=== PATIENT | female | born 1945 | race Caucasian/White ===

== ENCOUNTER → 2016-09-09 | Outpatient (CLI) | payer OTHER ==
[~2016-09-09] MED LIST: FRCT/ PO; METH-848 PO; METO25TA3 PO; PRLSR20 PO; TPZ5 PO
--- NOTE | 2016-09-09 10:50 | DIAGNOSTIC IMAGING REPORT ---
THYROID ULTRASOUND CLINICAL HISTORY: TOXIC MULTINODULAR GOITER COMPARISON STUDY: Carotid ultrasound July 30, 2005 and thyroid ultrasound August 23, 2015. TECHNIQUE: Sonography of the thyroid gland was performed. FINDINGS: The right thyroid lobe measures 4.8 x 2.2 x 2 cm and the left lobe measures 4.1 x 1.8 x 1.8 cm. There are numerous predominantly cystic and solid nodules with tiny echogenic foci with comet tail artifact throughout the thyroid gland. These are similar to prior exam of August 23, 2015. The largest is a 1.5 x 1.2 x 1.4 cm right lobe nodule. IMPRESSION: No significant change in numerous cystic thyroid lesions since exam of August 23, 2015. 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 Electronically signed by: Gianluca Gonzales M.D. 09/09/2016 10:49 AM Dictated Date/Time: 09/09/2016 10:45 AM
[2016-09-09 13:54] LABS: THYROID STIMULATING HORMONE 0.951 uIu/ml (0.300-4.500)
== END | disposition home or self-care (01) ==
LOC: C.ULTRBC 09:26
PROVIDERS: ATTEND Physician Assistant
DX: E05.20 Thyrotoxicosis with toxic multinodular goiter without thyrotoxic crisis or storm (principal)

== ENCOUNTER → 2016-10-16 | Outpatient (CLI) | payer OTHER ==
[2016-10-16 17:37] LABS: THYROID STIMULATING HORMONE 0.927 uIu/ml (0.300-4.500)
== END | disposition home or self-care (01) ==
LOC: C.LABBC 14:19
PROVIDERS: ATTEND Physician Assistant
DX: E05.90 Thyrotoxicosis, unspecified without thyrotoxic crisis or storm (principal)

== ENCOUNTER → 2016-11-15 | Outpatient (CLI) | payer OTHER ==
[2016-11-15 17:14] LABS: THYROID STIMULATING HORMONE 1.09 uIu/ml (0.300-4.500)
== END | disposition home or self-care (01) ==
LOC: C.LABBC 12:48
PROVIDERS: ATTEND Physician Assistant
DX: E05.90 Thyrotoxicosis, unspecified without thyrotoxic crisis or storm (principal)

== ENCOUNTER → 2016-12-11 | Outpatient (CLI) | payer OTHER ==
[2016-12-11 17:50] LABS: THYROID STIMULATING HORMONE 1.08 uIu/ml (0.300-4.500)
== END | disposition home or self-care (01) ==
LOC: C.LABBC 12:37
PROVIDERS: ATTEND Physician Assistant
DX: E05.90 Thyrotoxicosis, unspecified without thyrotoxic crisis or storm (principal)

== ENCOUNTER → 2017-01-15 | Outpatient (CLI) | payer OTHER ==
[2017-01-15 14:46] LABS: THYROID STIMULATING HORMONE 1.68 uIu/ml (0.300-4.500)
== END | disposition home or self-care (01) ==
LOC: C.LABBC 11:36
PROVIDERS: ATTEND Physician Assistant
DX: E05.90 Thyrotoxicosis, unspecified without thyrotoxic crisis or storm (principal)

== ENCOUNTER → 2017-04-08 | Outpatient (CLI) | payer OTHER ==
[2017-04-08 17:27] LABS: THYROID STIMULATING HORMONE 2.08 uIu/ml (0.300-4.500)
== END | disposition home or self-care (01) ==
LOC: C.LABBC 12:09
PROVIDERS: ATTEND Physician Assistant
DX: E05.90 Thyrotoxicosis, unspecified without thyrotoxic crisis or storm (principal)

== ENCOUNTER → 2017-05-16 | Outpatient (CLI) | payer OTHER | END | disposition home or self-care (01) | LOC: C.LABBC 14:25 | PROVIDERS: ATTEND Physician Assistant | DX: E05.90 Thyrotoxicosis, unspecified without thyrotoxic crisis or storm (principal) ==

== ENCOUNTER → 2017-06-16 | Outpatient (CLI) | payer OTHER ==
[~2017-06-16] MED LIST changes: -METO25TA3 PO; +METO25TA4 PO
== END | disposition home or self-care (01) ==
LOC: C.LABBC 12:31
PROVIDERS: ATTEND Physician Assistant
DX: E05.90 Thyrotoxicosis, unspecified without thyrotoxic crisis or storm (principal)

== ENCOUNTER → 2017-07-21 | Outpatient (CLI) | payer OTHER ==
[~2017-07-21] MED LIST changes: +METH10TA6 PO
--- NOTE | 2017-07-21 14:40 | DIAGNOSTIC IMAGING REPORT ---
SI JOINTS 3 OR MORE VIEWS CLINICAL HISTORY: 71 years-old Female presenting with S.I JOINT pain. TECHNIQUE: Frontal and bilateral oblique views of the sacroiliac joints were obtained. COMPARISON: Correlation made to CT from 01/09/2016. FINDINGS: The bilateral sacroiliac joints are symmetric and without evidence of erosions or osseous fusion. No significant osteophytosis. Osteopenia suspected. Sacrum is grossly intact. Visualized portion of the bony pelvis normal. Degenerative changes noted in the lower lumbar spine with lumbarization of S1 vertebral body. IMPRESSION: 1. Normal radiographic examination of the sacroiliac joints. 2. Lumbarization of the S1 vertebral body. Transitional lumbosacral anatomy can be a source of pain in some patients. 3. Osteopenia. Electronically signed by: Teddy Archer M.D. 07/21/2017 2:39 PM Dictated Date/Time: 07/21/2017 2:36 PM
== END | disposition home or self-care (01) ==
LOC: C.RADBC 14:05
PROVIDERS: ATTEND Physician Assistant Medical
DX: M46.1 Sacroiliitis, not elsewhere classified (principal)

== ENCOUNTER → 2017-08-19 | Outpatient (CLI) | payer OTHER ==
[~2017-08-19] MED LIST changes: -METH-848 PO; -TPZ5 PO
== END | disposition home or self-care (01) ==
LOC: C.LABBC 13:26
PROVIDERS: ATTEND Physician Assistant
DX: E05.90 Thyrotoxicosis, unspecified without thyrotoxic crisis or storm (principal)

== ENCOUNTER 2017-11-18 10:37 | Emergency (ER) | payer OTHER ==
[~2017-11-18] VITALS: Ht 154.9 cm; Wt 45.3 kg
[2017-11-18 10:41] VITALS: TEMP 36.9; Ht 154.9 cm; Wt 45.3 kg
[2017-11-18] MEDS ORDERED: SODIUM CHLORIDE 0.9% 500ML 500 ML IV STA (11:17)
[2017-11-18 11:54] LABS: BASO % 0.2 %; BASO ABS # 0.02 K/uL (0-0.2); EOS % 0.6 %; EOS ABS # 0.08 K/uL (0-0.5); HEMOGLOBIN 14.4 g/dL (12.0-16.0); IG# 0.02 K/uL (0.00-0.02); LYMPH % 15.9 %; LYMPH ABS # 2.08 K/uL (1.2-3.4); MEAN CELL VOLUME 91.5 fL (80-100); MEAN CORPUSCULAR HEMOGLOBIN 30.6 pg (25-34); MEAN CORPUSCULAR HGB CONC 33.5 g/dl (32-36); MEAN PLATELET VOLUME 9.2 fL (7.4-10.4); MONO % 6.9 %; NEUT % 76.2 %; NEUT ABS # 10.02 K/uL (1.4-6.5); PLATELET COUNT 255 K/uL (130-400); RED CELL DISTRIBUTION WIDTH CV 14.1 % (11.5-14.5); RED CELL DISTRIBUTION WIDTH SD 47.5 fL (36.4-46.3); WHITE BLOOD COUNT 13.12 K/uL (4.8-10.8)
[2017-11-18 12:21] LABS: ALBUMIN 2.7 gm/dl (3.4-5.0); ALKALINE PHOSPHATASE 111 U/L (45-117); ALT/SGPT 15 U/L (12-78); AST/SGOT 17 U/L (15-37); BLOOD UREA NITROGEN 12 mg/dl (7-18); CALCIUM 8.7 mg/dl (8.5-10.1); CARBON DIOXIDE 26 mmol/L (21-32); GLUCOSE 101 mg/dl (70-99); LIPASE 197 U/L (73-393); POTASSIUM 4.3 mmol/L (3.5-5.1); SODIUM 137 mmol/L (136-145); TOTAL PROTEIN 7.4 gm/dl (6.4-8.2)
--- NOTE | 2017-11-18 12:36 | DIAGNOSTIC IMAGING REPORT ---
CT SCAN OF THE ABDOMEN AND PELVIS WITHOUT CONTRAST CLINICAL HISTORY: Generalized abdominal pain. History of diverticulitis. COMPARISON STUDY: 01/09/2016 TECHNIQUE: CT scan of the abdomen and pelvis was performed from the lung bases to the proximal femurs. Images are reviewed in the axial, sagittal, and coronal planes. IV contrast was not administered for this examination. A dose lowering technique was utilized adhering to the principles of ALARA. CT DOSE: 436.56 mGycm FINDINGS: Lower chest: The heart is normal in size and configuration, without pericardial effusion. The lung bases and pleural spaces are clear. Liver: The unenhanced liver is normal in size, contour, and attenuation. There is no intrahepatic biliary ductal dilatation. Gallbladder: Unremarkable. Spleen: Normal in size and attenuation. Pancreas: Unremarkable. Adrenal glands: Unremarkable. Kidneys: There is a punctate nonobstructing left renal calculus. The right kidney is not visualized. Bowel: There are no transition zones indicate bowel obstruction. There is colonic diverticulosis. There is bowel wall thickening involving the descending colon with infiltration the pericolonic fat. The findings are consistent with a nonspecific colitis. Peritoneum: There is no intraperitoneal free air or abdominal ascites. Vasculature: There is a 5.2 cm infrarenal abdominal aortic aneurysm. This aneurysm measured 44 mm December 2015. Given the size and interval growth rate, vascular surgical consultation is recommended. Adenopathy: None. Pelvic viscera: The uterus appears surgically absent Skeletal structures: No destructive osseous lesions are seen. IMPRESSION: 1. Enlarging 52 mm infrarenal abdominal aortic aneurysm. No current evidence of rupture on this noncontrast study. Vascular surgical consultation is recommended in follow-up 2. Punctate nonobstructing left renal calculus. Surgically absent right kidney 3. Bowel wall thickening and infiltration of the pericolonic fat within the descending colon. The findings are consistent with a nonspecific colitis 4. No evidence of bowel obstruction. No evidence of free air. Electronically signed by: Yuval Huntley M.D. 11/18/2017 12:35 PM Dictated Date/Time: 11/18/2017 12:28 PM
[2017-11-18 13:21] VITALS: BP 159/84; PULSE 74; O2SAT 96
--- NOTE | 2017-11-18 13:38 | EMERGENCY ROOM VISIT NOTE ---
History First contact with patient: 11:00 Chief Complaint: GI ASSESSMENT Stated Complaint: DIVERTICULITIS Nursing Triage Summary: Pt coming from GI for CT. pt c/o abd cramping/pain, nausea, vomiting since Friday. "pushing like I have to go but only tiny flakes come out". Took Miralax without relief. Hx of Diverticulitis and stricture History of Present Illness The patient is a 72 year old female who presents to the Emergency Room with complaints of left-sided abdominal pain, cramping, nausea and vomiting. Patient reports that she had no symptoms until 1:15 AM Friday morning when she woke up and had to go the bathroom. The patient did not have any significant stool output. She reports that the pressure persisted over the next 24 hours. The patient reports a prior history of diverticulitis and a sigmoid stricture. Her last colonoscopy was approximately 2 years ago, showing only diverticulosis and polyps. She follows with Dr. Vicente. The patient reports that she tried 3 doses of MiraLAX without relief. She then was concerned that this could be a diverticulitis, and called Dr. Vicente's office. They referred her to the emergency department for a CT scan. The patient denies any fevers or chills. She has not noticed any mucus or bloody stools lately. She denies any urinary symptoms. The patient reports that she has only one kidney, having undergone a prior kidney donation. She reports that she cannot take any iodinated products because of history of hyperthyroidism and other health issues. She also reports a history of severe GERD with peptic ulcers. She reports that this pain feels different than her usual symptoms with GERD and ulcers. She currently rates her discomfort a 1 out of 10. Review of Systems HEENT: Denies dizziness, visual problems, hearing loss, tinnitus. Denies difficulty swallowing or oral lesions. PULMONARY: Denies cough, shortness of breath, sputum production or hemoptysis. CARDIOVASCULAR: Denies chest pain, palpitations, dyspnea on exertion, orthopnea or peripheral edema. GASTROINTESTINAL: See HPI. GENITOURINARY: Denies dysuria, frequency, urgency or nocturia. NEUROLOGIC: Denies history of epilepsy, CVA, TIA or chronic headaches. MUSCULOSKELETAL: Denies history of joint tenderness/swelling. SKIN: Denies rashes or lesions. PSYCHIATRIC: Denies history of depression or mental illness. ENDOCRINE: Denies history of diabetes. Patient has a history of hyperthyroidism. Past Medical/Surgical History Medical Problems: (1) Anxiety (2) Aortic aneurysm (3) Diverticulitis (4) GERD (gastroesophageal reflux disease) (5) HTN (hypertension) (6) Kidney donor (7) Migraine (8) Prinzmetal's angina (9) Sigmoid stricture Surgical Problems: (1) H/O: hysterectomy Family History Cancer FHx: aneurysm Hypertension Social History Smoking Status: Former Smoker Alcohol Use: none Drug Use: none Housing Status: lives alone Occupation Status: retired Current/Historical Medications Scheduled Methimazole (Methimazole), 1 TAB PO DAILY Metoprolol Succinate (Toprol Xl), 25 MG PO QAM Omeprazole (Prilosec), 20 MG PO QAM Scheduled PRN Acetamin/Butalbital/Caffeine (Fioricet), 1 TAB PO Q4H PRN for Headache Physical Exam Vital Signs Date Time Temp Pulse Resp B/P (MAP) Pulse Ox O2 Delivery O2 Flow Rate FiO2 11/18/17 13:21 74 18 159/84 96 11/18/17 12:29 62 18 115/63 97 Room Air 11/18/17 10:41 36.9 98 18 92/65 96 Room Air Physical Exam CONSTITUTIONAL: Healthy and well nourished. Alert and oriented X 3 with positive affect. Patient does not appear in any acute distress, nor does she appear toxic. HEENT: Normocephalic, atraumatic. Pupils equal, round and reactive. No scleral icterus or conjunctival injection/pallor. NECK: Full active range of motion without discomfort. RESPIRATORY: Clear to auscultation bilaterally with no wheezing, crackles, rhonchi or stridor. CARDIOVASCULAR: Regular rate and rhythm with no murmurs, rubs or gallops. GASTROINTESTINAL: Bowel sounds present in all quadrants. She has generalized left-sided abdominal tenderness to palpation without rigidity, guarding or rebound. Negative CVA tenderness. Negative McBurney's point tenderness. MUSCULOSKELETAL: Full range of motion of all joints without discomfort. INTEGUMENTARY: No rash or other significant dermatologic conditions noted. HEMATOLOGIC: No ecchymosis or petechiae. NEUROLOGIC: No focal neurologic deficits noted. Medical Decision & Procedures ER Provider Diagnostic Interpretation: Noncontrast CT of the abdomen and pelvis shows evidence for an acute colitis, without evidence for diverticulitis, obstruction or free air. A 52 mm infrarenal AAA is seen, and has enlarged since last documented CT of 2016. Radiologist report is as follows: CT SCAN OF THE ABDOMEN AND PELVIS WITHOUT CONTRAST CLINICAL HISTORY: Generalized abdominal pain. History of diverticulitis. COMPARISON STUDY: 01/09/2016 TECHNIQUE: CT scan of the abdomen and pelvis was performed from the lung bases to the proximal femurs. Images are reviewed in the axial, sagittal, and coronal planes. IV contrast was not administered for this examination. A dose lowering technique was utilized adhering to the principles of ALARA. CT DOSE: 436.56 mGycm FINDINGS: Lower chest: The heart is normal in size and configuration, without pericardial effusion. The lung bases and pleural spaces are clear. Liver: The unenhanced liver is normal in size, contour, and attenuation. There is no intrahepatic biliary ductal dilatation. Gallbladder: Unremarkable. Spleen: Normal in size and attenuation. Pancreas: Unremarkable. Adrenal glands: Unremarkable. Kidneys: There is a punctate nonobstructing left renal calculus. The right kidney is not visualized. Bowel: There are no transition zones indicate bowel obstruction. There is colonic diverticulosis. There is bowel wall thickening involving the descending colon with infiltration the pericolonic fat. The findings are consistent with a nonspecific colitis. Peritoneum: There is no intraperitoneal free air or abdominal ascites. Vasculature: There is a 5.2 cm infrarenal abdominal aortic aneurysm. This aneurysm measured 44 mm December 2015. Given the size and interval growth rate, vascular surgical consultation is recommended. Adenopathy: None. Pelvic viscera: The uterus appears surgically absent Skeletal structures: No destructive osseous lesions are seen. IMPRESSION: 1. Enlarging 52 mm infrarenal abdominal aortic aneurysm. No current evidence of rupture on this noncontrast study. Vascular surgical consultation is recommended in follow-up 2. Punctate nonobstructing left renal calculus. Surgically absent right kidney 3. Bowel wall thickening and infiltration of the pericolonic fat within the descending colon. The findings are consistent with a nonspecific colitis 4. No evidence of bowel obstruction. No evidence of free air. Laboratory Results 11/18/17 11:40 Red Blood Count 4.70, Mean Corpuscular Volume 91.5, Mean Corpuscular Hemoglobin 30.6, Mean Corpuscular Hemoglobin Concent 33.5, Mean Platelet Volume 9.2, Neutrophils (%) (Auto) 76.2, Lymphocytes (%) (Auto) 15.9, Monocytes (%) (Auto) 6.9, Eosinophils (%) (Auto) 0.6, Basophils (%) (Auto) 0.2, Neutrophils # (Auto) 10.02, Lymphocytes # (Auto) 2.08, Monocytes # (Auto) 0.90, Eosinophils # (Auto) 0.08, Basophils # (Auto) 0.02 11/18/17 11:40 Test 11/18/17 11:40 White Blood Count 13.12 K/uL (4.8-10.8) Red Blood Count 4.70 M/uL (4.2-5.4) Hemoglobin 14.4 g/dL (12.0-16.0) Hematocrit 43.0 % (37-47) Mean Corpuscular Volume 91.5 fL (80-100) Mean Corpuscular Hemoglobin 30.6 pg (25-34) Mean Corpuscular Hemoglobin Concent 33.5 g/dl (32-36) Platelet Count 255 K/uL (130-400) Mean Platelet Volume 9.2 fL (7.4-10.4) Neutrophils (%) (Auto) 76.2 % Lymphocytes (%) (Auto) 15.9 % Monocytes (%) (Auto) 6.9 % Eosinophils (%) (Auto) 0.6 % Basophils (%) (Auto) 0.2 % Neutrophils # (Auto) 10.02 K/uL (1.4-6.5) Lymphocytes # (Auto) 2.08 K/uL (1.2-3.4) Monocytes # (Auto) 0.90 K/uL (0.11-0.59) Eosinophils # (Auto) 0.08 K/uL (0-0.5) Basophils # (Auto) 0.02 K/uL (0-0.2) RDW Standard Deviation 47.5 fL (36.4-46.3) RDW Coefficient of Variation 14.1 % (11.5-14.5) Immature Granulocyte % (Auto) 0.2 % Immature Granulocyte # (Auto) 0.02 K/uL (0.00-0.02) Anion Gap 7.0 mmol/L (3-11) Est Creatinine Clear Calc Drug Dose 44.1 ml/min Estimated GFR () 84.2 Estimated GFR (Non- 72.6 BUN/Creatinine Ratio 15.4 (10-20) Calcium Level 8.7 mg/dl (8.5-10.1) Total Bilirubin 0.2 mg/dl (0.2-1) Direct Bilirubin < 0.1 mg/dl (0-0.2) Aspartate Amino Transf (AST/SGOT) 17 U/L (15-37) Alanine Aminotransferase (ALT/SGPT) 15 U/L (12-78) Alkaline Phosphatase 111 U/L (45-117) Total Protein 7.4 gm/dl (6.4-8.2) Albumin 2.7 gm/dl (3.4-5.0) Lipase 197 U/L (73-393) The above labs were reviewed. Patient does have a mild leukocytosis. LFTs, lipase and partial renal profile are otherwise unremarkable. The patient was unable to provide a urine sample. Medications Administered Medications (Trade) Dose Ordered Sig/Sarah Route Start Time Stop Time Status Last Admin Dose Admin Sodium Chloride 500 ml @ 999 mls/hr Q31M STAT IV 11/18/17 11:17 11/18/17 11:47 DC 11/18/17 11:44 999 MLS/HR ED Course Patient history and physical exam were performed. Nurse's notes were reviewed. Vital signs were reviewed, showing a blood pressure of 92/65. The patient is not tachycardic, and is afebrile. IV access was established, and labs were drawn. The patient refused any analgesics or antiemetics. The patient was hydrated with a normal saline 500 cc bolus. Review of labs shows a mild leukocytosis, otherwise remaining labs are normal. Noncontrast CT of the abdomen and pelvis shows evidence for a descending colon colitis without evidence for diverticulitis, perforation or obstruction. An increasing infrarenal AAA is noted. The case was discussed with Dr. Velarde, ED attending physician, who agrees with workup and outpatient management. The patient was given dietary instructions. I did encourage her to follow-up closely with Dr. Vicente to symptom resolution. I also spoke with Dr. Cullen regarding the patient's AAA. He reports that his office will call her to schedule a sooner appointment than December as she is currently scheduled. The patient was instructed to return to the emergency department for any progressively worsening pain, vomiting, rectal bleeding or developing fever. The patient voiced understanding of all discharge instructions, was happy with plan of care, and rated her discomfort a 3 out of 10 at the conclusion of my exam. Medical Decision CT studies today show evidence for a colitis. She has no evidence for acute diverticulitis, obstruction or free air. 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 The patient does have an increasing infrarenal AAA that is being managed by Dr. Cullen. He also feels that the patient is safe with outpatient follow-up as well. Laboratory studies are not suggestive of pancreatitis, cholecystitis or hepatitis. Clinical exam does not show any peritoneal signs. The patient was unable to provide a urine sample to rule out urinary tract etiology. CT scan does show renal calculi, but no evidence for ureteral calculi or hydroureteronephrosis. Medication Reconcilliation Current Medication List: was personally reviewed by me Blood Pressure Screening Patient's blood pressure: Normal blood pressure Impression Primary Impression: Colitis Additional Impression: Abdominal aortic aneurysm Departure Information Referrals Paula Rdz DO (PCP) Patient Instructions My [facility] Problem Qualifiers Additional Impression: Abdominal aortic aneurysm Presence of rupture: without rupture Qualified Codes: I71.4 - Abdominal aortic aneurysm, without rupture
== END 2017-11-18 13:23 | disposition home or self-care (01) ==
LOC: C.EDB 10:38 → C.EDC 13:23
DX: K52.9 Noninfective gastroenteritis and colitis, unspecified (principal); I71.4 Abdominal aortic aneurysm, without rupture; E05.90 Thyrotoxicosis, unspecified without thyrotoxic crisis or storm; K21.9 Gastro-esophageal reflux disease without esophagitis; F41.9 Anxiety disorder, unspecified; I10 Essential (primary) hypertension; Z90.710 Acquired absence of both cervix and uterus; Z80.9 Family history of malignant neoplasm, unspecified; Z82.49 Family history of ischemic heart disease and other diseases of the circulatory system; Z87.891 Personal history of nicotine dependence; Z79.899 Other long term (current) drug therapy

== ENCOUNTER → 2017-12-04 | Outpatient (CLI) | payer OTHER | END | disposition home or self-care (01) | LOC: C.LABBC 14:06 | PROVIDERS: ATTEND Physician Assistant | DX: E05.20 Thyrotoxicosis with toxic multinodular goiter without thyrotoxic crisis or storm (principal) ==

== ENCOUNTER 2023-09-11 04:04 | Inpatient (IN) ==
--- NOTE | 2023-09-11 04:23 | Emergency Department Note ---
Impression & Plan Hypertensive emergency, HTN (hypertension), Headache, Altered mental status ED Provider Note ED Provider Note NAME: SURESH ALEXANDRE AGE:77 SEX: Female : 1945 ARRIVES VIA: EMS INFORMANT: Patient ED PROVIDER(s): Ana Oden DO CHIEF COMPLAINT: Headache, high blood pressure HPI: This is a 77-year-old female brought in by EMS after she contacted them complaining of increased headache and nausea. EMS arrived on scene to find the patient who lives alone amnestic and repetitive, complaining of significant 10/10 headache, nausea and vomiting. Patient noted to have significant hypertension for EMS as well. They were able to establish an IV and administer IV Zofran. On arrival patient complains of headache. She does not member when she went to bed or when she woke up. She did not remember contacting 911. Patient initially said she has never had a headache this severe and then when asked again stated she gets bad headaches all the time. She denies any history of high blood pressure. She denies any use of antiplatelet or anticoagulation medication. She denies any recent fevers, chills, or illness. Multiple times patient asked who called 911 tonight. She could not report her address to EMS but did know her name and birthday. She is aware she is in the hospital. PAST MEDICAL HISTORY:See Below PAST SURGICAL HISTORY:See Below FAMILY HISTORY:See Below SOCIAL HISTORY:See Below HOME MEDICATIONS:See Below ALLERGIES:See Below VITALS:See Below PHYSICAL EXAMINATION: GENERAL: alert, unwell appearing, well nourished, moderate distress EYE EXAM: normal conjunctiva, PERRL and EOM's grossly intact OROPHARYNX: no exudate, no erythema, lips, buccal mucosa, and tongue normal and mucous membranes are moist NECK: supple, no nuchal rigidity, no adenopathy, non-tender LUNGS: Clear to auscultation. Normal chest wall mechanics, no w/r/r HEART: no murmurs, S1 normal and S2 normal ABDOMEN: abdomen soft, non-tender, normo-active bowel sounds, no masses, no rebound or guarding. BACK: Back is symmetrical on inspection and there is no deformity SKIN: no rashes, petechiae, orbruising UPPER EXTREMITIES: upper extremities are grossly normal. FROM, nml pulses b/l. LOWER EXTREMITIES: No pitting edema. FROM, nml pulses b/l. NEURO EXAM: Normal sensorium, cranial nerves II-XII grossly intact, normal speech, no facial droop,nogross weakness of arms, no gross weakness of legs. Gross sensation intact. No ataxia. Vital Signs: reviewed and remarkable Differential Diagnosis: Benign hypertension, hypertensive emergency, cardiovascular pathology, toxicologic, pheochromocytoma, electrolyte abnormality, renal disease, endorgan damage, as well as other pathologies. MEDICAL DECISION MAKING: This is an 78-year-old female who presents emergency department via EMS due to concern for headache, nausea and vomiting. Patient found to be hypertensive by EMS on their arrival. She was afebrile here, was still hypertensive however other vital signs stable. She had a nonfocal neurologic exam although complained of a headache and nausea. Labs drawn and sent, IV established, EKG and chest ray performed bedside interpreted me and patient monitored on telemetry she was given IV Zofran, gentle IV fluids started, patient sent for urgent noncontrast head CT. Patient given IV labetalol with slow improvement of her blood pressure. Nausea improved after Zofran. IV Tylenol added additionally. CT head was negative. Patient's other labs reassuring with exception of her creatinine which was found to be elevated. Patient given several doses overall of IV labetalol with slow improvement of her blood pressure. Case discussed with hospitalist team for additional evaluation and management. UA still pending at that time. Patient continued to have a nonfocal neuro exam. No evidence of evolving CHF or ACS. No ectopy or dysrhythmia noted on telemetry. Consultation(s): 0440: Discussed with Dr. Lagunas, STAT rad, CT head negative. 0532: Discussed with Dr. Cheng, [facility] hospitalist, for additional evaluation and management. ER Treatment Provided: See below Diagnostics Interpreted By Me: -ECG: Normal sinus at 98, normal axis, normal intervals, appearance of incomplete right bundle branch block, nonspecific ST/T wave changes -Cardiac Monitoring: An order was placed for continuous cardiac monitoring. The monitor shows a rate of 82 with normal sinus rhythm. -Laboratory studies: As stated above and show below. -Imaging studies: X-ray Chest: A single view study of the chest was reviewed and was negative for cardiomegaly, focal infiltrate, effusion, pulmonary edema, or wide mediastinum. Triage Nursing Note Reviewed Prior/Outside Records Reviewed Critical Care: Critical care of 52 min performed to assess and manage high likelihood of life- threatening hypertensive emergency, involving labs and imaging performed with assessment to evaluate headache and hypertension diagnosis with frequent reassessment. This time includes bedside time, treatment discussions with patient/family/consultants, documentation time and excludes procedure time. Past Med/Surg History Problem List (Updated 09/12/23 @ 07:15 by Ana Oden DO) Hypertensive emergency (Acute) Incomplete RBBB Vasovagal reaction Heart block AV second degree Goals of care, counseling/discussion Failure to thrive in adult CKD (chronic kidney disease) stage 4, GFR 15-29 ml/min Hypertensive emergency without congestive heart failure Altered mental status (Acute) Headache (Acute) Low weight ESRD (end stage renal disease) Weight loss Fatigue Toxic multinodular goiter Central venous catheter in place, permanent Radial head fracture, closed (Acute) Lunate fracture, closed (Acute) Aftercare for cast or splint check or change (Acute) Hypertension (Acute) Vertigo (Acute) GERD (gastroesophageal reflux disease) (Chronic) Chest pain (Acute) Aortic aneurysm (Chronic) Migraine (Chronic) Prinzmetal's angina (Chronic) HTN (hypertension) (Chronic) Medical History CKD (chronic kidney disease) stage 5, GFR less than 15 ml/min Hyperthyroidism Kidney donor Prinzmetal's angina Diverticulitis Sigmoid stricture Anxiety Colitis GERD (gastroesophageal reflux disease) Aortic aneurysm HTN (hypertension) Surgical History History of AAA (abdominal aortic aneurysm) repair History of nephrectomy History of hysterectomy Social History Smoking Status: Former smoker Second Hand Exposure: No; Do You Dip or Chew Tobacco: No; Hx Alcohol Use: No Hx Substance Use: No Preferred Language: Portuguese Communication Ability: Effective Research Laboratory Technician Required: No Beliefs That Will Affect Care: None marital status: / Current Living Situation: Alone Current Living Situation Comment: lives alone; sister in [place]; daughter/ current occupational status: retired 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 Feels Safe at Home: Yes Safety Concerns: Feels Safe At This Time Assistive Devices: Glasses Allergies Allergies Allergy/AdvReac Type Severity Reaction Status Date / Time clindamycin Allergy Intermediate SEVERE Verified 11/21/21 12:46 DIARRHEA ergotamine Allergy Intermediate severe TREVIZO Verified 11/21/21 12:46 mold Allergy Intermediate MIGRAINE TREVIZO Verified 11/21/21 12:46 NSAIDS (Non-Steroidal Allergy Unknown GI SYMPTOMS Verified 11/21/21 12:46 Anti-Inflamma Fungi Allergy Intermediate MIGRAINE TREVIZO Uncoded 11/21/21 12:46 Home Meds Home Medications Medication Instructions Recorded Confirmed omeprazole magnesium 20 mg 20 mg PO DAILY 05/25/18 09/11/23 tablet,delayed release (Prilosec OTC) amlodipine 5 mg tablet 10 mg PO DAILY 05/17/19 09/11/23 hydralazine 10 mg tablet 10 mg PO UD hypertension 05/17/19 09/11/23 metoprolol succinate 25 mg 25 mg PO UD 10/28/19 09/11/23 tablet,extended release 24 hr (Toprol XL) acetaminophen 300 mg-codeine 30 mg 1 tab PO UD PRN pain 09/11/23 09/11/23 tablet alprazolam 0.5 mg tablet 0.5 mg PO UD PRN anxiety 09/11/23 09/11/23 eszopiclone 3 mg tablet (Lunesta) 3 mg PO UD 09/11/23 09/11/23 Previous Rx's Medication Instructions Recorded [id number] 1 tab PO BID PRN migraine headache 06/14/22 50 mg-325 mg-40 mg tablet 30 days #60 tabs methimazole 5 mg tablet 5 mg PO DAILY #90 tabs 06/04/23 Results & Data (ED) Vital Signs Vital Signs - 24 hr 09/11/23 05:40 09/11/23 05:50 09/11/23 05:52 Pulse Rate 73 75 74 Pulse Rate from SpO2 Sensor 73 74 74 Respiratory Rate 16 14 13 Respiratory Effort / Characteristics Respiratory Depth Blood Pressure Blood Pressure Mean Pulse Oximetry 97 97 98 09/11/23 05:52 09/11/23 05:59 09/11/23 06:00 Pulse Rate 76 Pulse Rate from SpO2 Sensor Respiratory Rate Respiratory Effort / Characteristics Non-Labored Respiratory Depth Normal Blood Pressure 172/96 H 186/86 H Blood Pressure Mean 133 Pulse Oximetry 09/11/23 06:00 09/11/23 06:00 Pulse Rate 76 Pulse Rate from SpO2 Sensor 76 Respiratory Rate 22 Respiratory Effort / Characteristics Respiratory Depth Blood Pressure 186/86 H Blood Pressure Mean 147 Pulse Oximetry 98 Laboratory Data 09/12/23 02:24 09/12/23 02:24 Lab Results 09/11/23 09/11/23 Range/Units 04:09 04:13 WBC 8.45 (4.8-10.8) K/ul RBC 4.26 (4.20-5.40) M/uL Hgb 12.9 (12.0-16.0) g/dl POC Hgb 12.2 (12.0-16.0) g/dl Hct 40.2 (37.0-47.0) % POC Hct 36 L (37-47) % MCV 94.4 (80.0-100.0) fL MCH 30.3 (25.0-34.0) pg MCHC 32.1 (32.0-36.0) g/dL RDW Std Deviation 47.0 H (36.4-46.3) fL RDW Coeff of Maciej 14.6 H (11.5-14.5) % Plt Count 268 (130-400) K/uL MPV 8.7 L (9.4-12.4) fL Immature Gran % (Auto) 0.4 % Neut % (Auto) 47.8 % Lymph % (Auto) 40.9 % Bell % (Auto) 6.0 % Eos % (Auto) 4.5 % Baso % (Auto) 0.4 % Neut # (Auto) 4.04 (1.40-6.50) K/uL Lymph # (Auto) 3.46 H (1.20-3.40) K/uL Bell # (Auto) 0.51 (0.11-0.59) K/uL Eos # (Auto) 0.38 (0.00-0.50) K/uL Baso # (Auto) 0.03 (0.00-0.20) K/uL Immature Gran # (Auto) 0.03 (0.01-0.20) K/uL PT 10.0 (9.0-12.0) Seconds INR 0.9 (0.9-1.1) APTT 25 (21-31) Seconds PTT Ratio 0.9 POC Sodium 139 (135-144) mmol/L Sodium 137 (136-145) mmol/L POC Potassium 4.2 (3.3-5.0) mmol/L Potassium 4.4 (3.5-5.1) mmol/L POC Chloride 107 (101-112) mmol/L Chloride 106 (98-107) mmol/L Carbon Dioxide 23 (21-32) mmol/L POC Total CO2 24 (24-31) mmol/L Anion Gap 8 (3-11) POC Anion Gap 13.0 L (16-25) mmol/L POC BUN 36 H (7-18) mg/dl BUN 45 H (6-23) mg/dl Creatinine 2.09 H (0.6-1.2) mg/dl POC Creatinine 2.3 H (0.6-1.3) mg/dl Est Cr Clr Drug Dosing 13.4 ml/min Est GFR ( Amer) 25.5 ml/min Est GFR (Non-Af Amer) 22.0 ml/min BUN/Creatinine Ratio 21.5 H (10-20) Glucose 130 H (70-99(Fasting)) mg/dl POC Glucose 117 H (70-99) mg/dl POC Glucose (other) 130 H (70-99) mg/dl Calcium 9.1 (8.6-10.3) mg/dl POC Ioniz Calcium Bennett 1.20 (1.12-1.32) mmol/l Magnesium 1.7 (1.7-2.4) mg/dl Total Bilirubin 0.2 (0.2-1.0) mg/dl AST 20 (13-39) U/L ALT 20 (7-52) U/L Alkaline Phosphatase 75 (34-104) U/L Troponin I High Sens 10.7 (0-14) pg/ml Total Protein 6.8 (6.0-8.3) gm/dl Albumin 3.5 (3.4-5.0) gm/dl Globulin 3.3 (2.5-4.0) gm/dl Albumin/Globulin Ratio 1.1 (0.9-2) TSH 0.108 L (0.300-4.500) uIu/ml Free T4 0.69 (0.61-1.60) ng/dl Administered Medications Acetaminophen (Acetaminophen 325 Mg Tab) 650 mg PO Q4H PRN PRN Reason: Pain or Fever Stop: 10/11/23 07:24 Last Admin: 09/11/23 21:18 Dose: 650 mg Documented By: CAROL ANN Admin: 09/11/23 08:45 Dose: 650 mg Documented By: ANKUR Amlodipine Besylate (Amlodipine Besylate 5 Mg Tab) 10 mg PO QAM [facility] Stop: 10/11/23 08:59 Last Admin: 09/11/23 08:45 Dose: 10 mg Documented By: ANKUR Heparin Sodium (Porcine) (Heparin Sod 5,000 Unit/0.5 Ml Vial) 5,000 units SQ Q12 ZAK Stop: 10/11/23 08:59 Last Admin: 09/11/23 21:19 Dose: 5,000 units Documented By: CAROL ANN Admin: 09/11/23 09:23 Dose: 5,000 units Documented By: LEWIS Hydralazine HCl (Hydralazine 10 Mg Tab) 10 mg PO BID [facility] Stop: 10/11/23 08:59 Last Admin: 09/11/23 21:19 Dose: 10 mg Documented By: CAROL ANN Admin: 09/11/23 08:45 Dose: 10 mg Documented By: ANKUR Acetaminophen 550 mg/ EMPTY (BAG) 55 mls @ 400 mls/hr IV Q6H PRN; Protocol PRN Reason: Pain/Fever Stop: 10/11/23 13:14 Last Infusion: 09/11/23 13:50 Dose: Infused Documented By: Admin: 09/11/23 13:41 Dose: 400 mls/hr Documented By: FEDERICO Labetalol HCl (Labetalol Hcl Iv 5 Mg/Ml 20ml) 10 mg IV Q6H PRN PRN Reason: Hypertension Stop: 10/11/23 07:24 Last Admin: 09/11/23 18:51 Dose: 10 mg Documented By: ANIKA Co-signed By: CAROL ANN Admin: 09/11/23 13:41 Dose: 10 mg Documented By: FEDERICO Co-signed By: GIGI Methimazole (Methimazole 5 Mg Tablet) 5 mg PO DAILY [facility] Stop: 10/11/23 08:59 Last Admin: 09/11/23 08:45 Dose: 5 mg Documented By: ANKUR Metoprolol Succinate (Metoprolol Succ 25mg Ext Rel Tab) 25 mg PO QAM ZAK Stop: 10/11/23 08:59 Last Admin: 09/11/23 08:45 Dose: 25 mg Documented By: ANKUR Ondansetron HCl (Ondansetron Inj 2 Mg/Ml 2 Ml Vial) 4 mg IV Q6H PRN PRN Reason: Nausea Stop: 10/11/23 07:24 Last Admin: 09/11/23 15:46 Dose: 4 mg Documented By: Admin: 09/11/23 08:53 Dose: 4 mg Documented By: ANKUR Pantoprazole Sodium (Pantoprazole 40 Mg Tab) 40 mg PO DAILY ZAK Stop: 10/11/23 08:59 Last Admin: 09/11/23 08:45 Dose: 40 mg Documented By: ANKUR Tramadol HCl (Tramadol Hcl 50 Mg Tablet) 50 mg PO Q6H PRN PRN Reason: Mod-Sev Pain (Scale 4-10) Stop: 10/11/23 07:24 Last Admin: 09/11/23 15:52 Dose: 50 mg Documented By: Admin: 09/11/23 08:45 Dose: 50 mg Documented By: ANKUR Discontinued Medications Amlodipine Besylate (Amlodipine Besylate 5 Mg Tab) 10 mg PO NOW ONE Stop: 09/11/23 13:07 Last Admin: 09/11/23 14:00 Dose: Not Given Documented By: LEWIS Hydralazine HCl (Hydralazine Hcl 20 Mg/Ml Vial) 7.5 mg IV NOW STA Stop: 09/11/23 07:10 Last Admin: 09/11/23 07:14 Dose: 7.5 mg Documented By: LEWIS Hydralazine HCl (Hydralazine Hcl 20 Mg/Ml Vial) Confirm Administered Dose 20 mg .ROUTE .STK-MED ONE Stop: 09/11/23 07:14 Last Admin: 09/11/23 07:14 Dose: Not Given Documented By: LEWIS Hydralazine HCl (Hydralazine 10 Mg Tab) 10 mg PO ONE ONE Stop: 09/11/23 13:08 Last Admin: 09/11/23 14:00 Dose: Not Given Documented By: LEIWS Hydromorphone HCl (Hydromorphone Inj 0.5 Mg/0.5 Ml Syr) 0.25 mg IV NOW STA Stop: 09/11/23 09:07 Last Admin: 09/11/23 09:18 Dose: 0.25 mg Documented By: LEWIS Hydromorphone HCl (Hydromorphone Inj 0.5 Mg/0.5 Ml Syr) Confirm Administered Dose 0.5 mg .ROUTE .STK-MED ONE Stop: 09/11/23 09:15 Last Admin: 09/11/23 09:18 Dose: Not Given Documented By: LEWIS Hydromorphone HCl (Hydromorphone Inj 0.5 Mg/0.5 Ml Syr) 0.25 mg IV NOW STA Stop: 09/11/23 16:22 Last Admin: 09/11/23 16:36 Dose: 0.25 mg Documented By: BETSY Sodium Chloride (Nss) 1,000 mls @ 100 mls/hr IV .Q10H [facility] Stop: 10/11/23 04:14 Last Infusion: 09/11/23 14:30 Dose: Infused Documented By: Admin: 09/11/23 04:53 Dose: 100 mls/hr Documented By: GIACOMO Acetaminophen 582 mg/ EMPTY (BAG) 58.2 mls @ 232.8 mls/hr IV NOW STA Stop: 09/11/23 04:29 Last Infusion: 09/11/23 05:11 Dose: Infused Documented By: Admin: 09/11/23 04:56 Dose: 232.8 mls/hr Documented By: GIACOMO Sodium Chloride (Nss) 1,000 mls @ 75 mls/hr IV .[id number] [facility] Stop: 09/11/23 20:44 Last Infusion: 09/11/23 09:45 Dose: 0 mls/hr Documented By: Admin: 09/11/23 07:45 Dose: 75 mls/hr Documented By: LEWIS Promethazine HCl (Phenergan) 12.5 mg in 50.5 mls @ 200 mls/hr IV NOW ONE Stop: 09/11/23 17:00 Last Admin: 09/11/23 16:58 Dose: Not Given Documented By: TABATHA Labetalol HCl (Labetalol Hcl Iv 5 Mg/Ml 20ml) Confirm Administered Dose 5 mg IV .STK-MED ONE Stop: 09/11/23 04:07 Last Admin: 09/11/23 04:27 Dose: Not Given Documented By: GIACOMO Labetalol HCl (Labetalol Hcl Iv 5 Mg/Ml 20ml) 10 mg IV NOW STA Stop: 09/11/23 04:18 Last Admin: 09/11/23 04:26 Dose: 10 mg Documented By: GIACOMO Co-signed By: ANNALEE Labetalol HCl (Labetalol Hcl Iv 5 Mg/Ml 20ml) 10 mg IV NOW STA Stop: 09/11/23 04:29 Last Admin: 09/11/23 04:36 Dose: 10 mg Documented By: GIACOMO Co-signed By: MARILYN Labetalol HCl (Labetalol Hcl Iv 5 Mg/Ml 20ml) 10 mg IV NOW STA Stop: 09/11/23 05:40 Last Admin: 09/11/23 06:00 Dose: 10 mg Documented By: ARTURO Co-signed By: KYLE Nitroglycerin (Nitroglycerin 2% Ointment 30gm Tube) 1 inch EXT NOW ONE Stop: 09/11/23 09:15 Last Admin: 09/11/23 09:23 Dose: Not Given Documented By: LEWIS Ondansetron HCl (Ondansetron Inj 2 Mg/Ml 2 Ml Vial) 4 mg IV NOW STA Stop: 09/11/23 13:51 Last Admin: 09/11/23 14:00 Dose: 4 mg Documented By: LEWIS Promethazine HCl (Promethazine 12.5 Mg/50.5 Ml Nss) Confirm Administered Dose 12.5 mg IV .STK-MED ONE Stop: 09/11/23 16:35 Last Admin: 09/11/23 16:38 Dose: 12.5 mg Documented By: DIANEW Imaging Data Radiologist's Impression: Head CT 09/11/23 04:06 CR Exam(s): CT HEAD Without Contrast EXAM: CT Head Without Intravenous Contrast CLINICAL HISTORY: neuro deficit, acute stroke suspected. TECHNIQUE: Axial computed tomography images of the head/brain without intravenous contrast. CTDI is 35.29 mGy and DLP is 547.75 mGy-cm. Automated exposure control was utilized for the study. A dose lowering technique was utilized adhering to the principles of ALARA. COMPARISON: CT head without contrast dated 12/04/2014 FINDINGS: Brain: No intracranial hemorrhage. No significant mass-effect. No evidence for cortical infarct. Diffuse prominence of the cerebral sulci and sylvian fissures noted involving both cerebral hemispheres. Minimal periventricular deep white matter hypodense changes are slightly progressive from the previous examination. Ventricles: No midline shift or ventriculomegaly. Bones/joints: Unremarkable. No acute fracture. Soft tissues: Unremarkable. Sinuses: Unremarkable as visualized. No acute sinusitis. Mastoid air cells: Unremarkable as visualized. No mastoid effusion. IMPRESSION: No acute intracranial process or significant alteration from the previous examination with chronic underlying presumed incidental age- related findings, as noted above. Communications: Call Doctor Stroke Electronically signed by: Adalberto Nixon MD 09/11/23 04:37 AM Discharge Plan Visit Data Chief Complaint: Hypertension Stated Complaint: HEADACHE, VOMITING, AMS ED Provider: Ana Oden Discharge Problem: Hypertensive emergency, HTN (hypertension), Headache, Altered mental status Patient Disposition: Admitted As Inpatient Discharge Instructions Interventions: ED Discharge Assessment Last Done: 09/11/23 07:24 Discharge Problem: Headache Qualifiers: Headache type: unspecified Headache chronicity pattern: acute headache I ntractability: not intractable Qualified Code(s): R51.9 - Headache, unspecified
[2023-09-11] MEDS: LABETALOL HCL IV 5 MG/ML 20ML IV STA ×3 (04:26→06:00)
[2023-09-11] MEDS: LABETALOL HCL IV 5 MG/ML 20ML IV ONE (04:27)
--- NOTE | 2023-09-11 04:38 | CT Scan Report ---
Exam(s): CT HEAD Without Contrast EXAM: CT Head Without Intravenous Contrast CLINICAL HISTORY: neuro deficit, acute stroke suspected. TECHNIQUE: Axial computed tomography images of the head/brain without intravenous contrast. CTDI is 35.29 mGy and DLP is 547.75 mGy-cm. Automated exposure control was utilized for the study. A dose lowering technique was utilized adhering to the principles of ALARA. COMPARISON: CT head without contrast dated 12/04/2014 FINDINGS: Brain: No intracranial hemorrhage. No significant mass-effect. No evidence for cortical infarct. Diffuse prominence of the cerebral sulci and sylvian fissures noted involving both cerebral hemispheres. Minimal periventricular deep white matter hypodense changes are slightly progressive from the previous examination. Ventricles: No midline shift or ventriculomegaly. Bones/joints: Unremarkable. No acute fracture. Soft tissues: Unremarkable. Sinuses: Unremarkable as visualized. No acute sinusitis. Mastoid air cells: Unremarkable as visualized. No mastoid effusion. IMPRESSION: No acute intracranial process or significant alteration from the previous examination with chronic underlying presumed incidental age- related findings, as noted above. Communications: Call Doctor Stroke Electronically signed by: Adalberto Nixon MD 09/11/23 04:37 AM
[2023-09-11 04:40] LABS: Basophils # (auto) 0.03 K/uL (0.00-0.20); Basophils % (auto) 0.4 %; Eosinophils # (auto) 0.38 K/uL (0.00-0.50); Eosinophils % (auto) 4.5 %; Hematocrit (blood only) 40.2 % (37.0-47.0); Hemoglobin 12.9 g/dl (12.0-16.0); Immature Granulocytes # (auto) 0.03 K/uL (0.01-0.20); Immature Granulocytes % (auto) 0.4 %; Lymphocytes # (auto) 3.46 K/uL (1.20-3.40); Lymphocytes % (auto) 40.9 %; Mean Corpuscular Hemoglobin 30.3 pg (25.0-34.0); Mean Corpuscular Hgb Conc 32.1 g/dL (32.0-36.0); Mean Corpuscular Volume 94.4 fL (80.0-100.0); Mean Platelet Volume 8.7 fL (9.4-12.4); Monocytes # (auto) 0.51 K/uL (0.11-0.59); Neutrophils # (auto) 4.04 K/uL (1.40-6.50); Neutrophils % (auto) 47.8 %; Platelet Count 268 K/uL (130-400); RDW Coefficient of Variation 14.6 % (11.5-14.5); Red Blood Count 4.26 M/uL (4.20-5.40); White Blood Count 8.45 K/ul (4.8-10.8)
[2023-09-11] MEDS: SODIUM CHLORIDE 0.9% 1,000 ML IV SCH ×2 (04:53→07:45)
[2023-09-11 04:54] LABS: Albumin Globulin Ratio 1.1 (0.9-2); Albumin Level 3.5 gm/dl (3.4-5.0); BUN Creatinine Ratio 21.5 (10-20); Bilirubin,Total 0.2 mg/dl (0.2-1.0); Calcium 9.1 mg/dl (8.6-10.3); Creatinine Clr Calc Pharmacy 13.4 ml/min; Est GFR (African American) 25.5 ml/min; Globulin 3.3 gm/dl (2.5-4.0); Magnesium 1.7 mg/dl (1.7-2.4); Potassium 4.4 mmol/L (3.5-5.1); Total Protein 6.8 gm/dl (6.0-8.3)
[2023-09-11] MEDS: ACETAMINOPHEN IV STA (04:56)
[2023-09-11 04:59] LABS: Troponin I High Sensitivity 10.7 pg/ml (0-14)
[2023-09-11 05:08] LABS: INR 0.9 (0.9-1.1); Partial Thromboplastin Ratio 0.9; Partial Thromboplastin Time 25 Seconds (21-31)
--- NOTE | 2023-09-11 07:06 | XRay Report ---
XR chest 1V portable CLINICAL HISTORY: neuro deficit, acute stroke suspected TECHNIQUE: Single frontal radiograph of the chest was obtained. Comparison: Comparison is made to chest radiograph 01/09/2016 FINDINGS: No lines and tubes are seen. Calcified aortic knob is seen. The lungs are clear. No evidence of pleur al effusion or pneumothorax. S-shaped scoliosis is seen. IMPRESSION: No acute chest disease. ACT 112: Negative or not required by law. Electronically signed by: Ross Tipton M.D. 09/11/2023 7:05 AM
[2023-09-11] MEDS: hydrALAZINE HCL 20 MG/ML VIAL IV STA (07:14)
[2023-09-11] MEDS: hydrALAZINE HCL 20 MG/ML VIAL ONE (07:14)
[2023-09-11] MEDS ORDERED: POLYETHYLENE (MIRALAX) 17 GM PACK PO PRN (07:25)
[2023-09-11] MEDS ORDERED: PHARMACIST DISCHARGE MED REC CONSULT PRN (07:25)
[2023-09-11] MEDS ORDERED: NITROGLYCERIN SL 0.4 MG/TAB TAB SL PRN (07:25)
--- NOTE | 2023-09-11 07:51 | History & Physical Report ---
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 seems had headaches on dialysis and withdrew from dialysis from April 2018 as per records, history of GERD who lives alone and has a sister who lives in [place] called EMS because of severe headaches and for EMS her systolic blood pressure was in 240s and patient seemed confused.Initially there was plan for call stroke alert because of confusion and high blood pressure but because not not knowing her well-known time stroke alert was not called. CT head was okay. CTA head and neck not done because of renal dysfunction. Received few doses of IV labetalol. Patient can tell her name. Could tell her date of . Knows that she is in the hospit al. Could not tell current dates. Patient does not remember calling EMS and does not know why she is in the hospital. Says her headaches are better now. Denies dizziness. Denies blurred visions. Denies runny nose or sore throat or cough. Denies any difficulty swallowing. Denies fevers. Denies chest pain or shortness of breath. Denies nausea. Denies abdominal pain. States having normal bowel bladder movements. States she ambulates okay. Does not think she is taking any medications at home. She does not know that she is on medications. Tried to call sister but not able to reach. Altered mental status patient called EMS for severe headaches but currently patient does not remember that she called EMS and does not know why she is in the hospital CT head is okay amnesia possibly from elevated blood pressure stroke rule out will do MRI scan will do stroke protocol with neurochecks, echo, Carotid Doppler, speech evaluation Evaluation and PT OT. neurology consult close monitor hypertensive urgency/emergency received IV labetalol patient thinks that she is not taking any medications will place her on amlodipine, hydralazine and Toprol as per [facility] and IV l abetalol as needed and monitor cardiology consulted close monitor CKD stage V baseline creatinine around 2.5 presented with creatinine of 2 seems not followed up with nephro recently will consult nephrology history of right kidney donation. History of tubular replaced. History of hyperthyroidism on methimazole as per [facility] will follow TSH GERD PPI DVT prophylaxis heparin subcu disposition telemetry CODE STATUS will keep full code for now until further discussion with the patient needs to verify medications with the patient When she is more stable Admission and Anticipated Discharge Date Admission Date: September 11, 2023 History of Present Illness Chief Complaint: Headache, confusion, elevated blood pressure Primary Care Provider: Fátima Escalante DO 77-year-old female with past medical history significant for per [facility] notes 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 seems had headaches on dialysis and withdrew from dialysis from April 2018 as per records, history of GERD who lives alone and has a sister who lives in [place] called EMS because of severe headaches and for EMS her systolic blood pressure was in 240s and patient seemed confused.Initially there was plan for call stroke alert because of confusion and high blood pressure but because not not knowing her well-known time stroke alert was not called. CT head was okay. CTA head and neck not done because of renal dysfunction. Received few doses of IV labetalol. Patient can tell her name. Could tell her date of . Knows that she is in the hospital. Could not tell current dates. Patient does not remember calling EMS and does not know why she is in the hospital. Says her headaches are better now. Denies dizziness. Denies blurred visions. Denies runny nose or sore throat or cough. Denies any difficulty swallowing. Denies fevers. Denies chest pain or shortness of breath. Denies nausea. Denies abdominal pain. States having normal bowel bladder movements. States she ambulates okay. Does not think she is taking any medications at home. She does not know that she is on medications. Tried to call sister but not able to reach. Past medical history. As mentioned above Past surgical history. Left breast biopsy. Colonoscopy with biopsy. EGD. EGD with biopsy. Right kidney donation. Abdominal hysterectomy. Cataracts. Family history. Father had oral cancer. Mother had colon cancer. Sister had melanoma. Sister had cerebral aneurysm. Social history. . Smokes 0.1 pack a day for last 7 years. No alcohol use. No drug use. Allergies Allergy/AdvReac Type Severity Reaction Status Date / Time clindamycin Allergy Intermediate SEVERE Verified 11/21/21 12:46 DIARRHEA ergotamine Allergy Intermediate severe TREVIZO Verified 11/21/21 12:46 mold Allergy Intermediate MIGRAINE TREVIZO Verified 11/21/21 12:46 NSAIDS (Non-Steroidal Allergy Unknown GI SYMPTOMS Verified 11/21/21 12:46 Anti-Inflamma Fungi Allergy Intermediate MIGRAINE TREVIZO Uncoded 11/21/21 12:46 Home Medications Medication Instructions Recorded Confirmed Type omeprazole magnesium 20 mg 20 mg PO DAILY 05/25/18 11/21/21 History tablet,delayed release (Prilosec OTC) amlodipine 5 mg tablet 5 mg PO BID 05/17/19 11/21/21 History hydralazine 10 mg tablet 10 mg PO .COMPLEX PRN hypertension 05/17/19 11/21/21 History metoprolol succinate 25 mg 25 mg PO DAILY 10/28/19 11/21/21 History tablet,extended release 24 hr (Toprol XL) acetaminophen 300 mg-codeine 30 mg 1 tab PO BID PRN pain #30 tabs 11/21/21 11/21/21 Rx tablet alprazolam 0.5 mg tablet 0.5 mg PO BID PRN anxiety #60 tabs 06/14/22 Rx guolapchqd-mibdvwbkzxtau-qtwpfpav 1 tab PO BID PRN migraine headache 06/14/22 Rx 50 mg-325 mg-40 mg tablet 30 days #60 tabs eszopiclone 3 mg tablet (Lunesta) 3 mg PO HS 30 days #30 tabs 06/14/22 Rx methimazole 5 mg tablet 5 mg PO DAILY #90 tabs 06/04/23 Rx Past Med/Surg History Problem List (Updated 09/11/23 @ 04:23 by Ana Oden DO) Altered mental status (Acute) Headache (Acute) Low weight ESRD (end stage renal disease) Weight loss Fatigue Toxic multinodular goiter Hyperthyroidism Central venous catheter in place, permanent Radial head fracture, closed (Acute) Lunate fracture, closed (Acute) Aftercare for cast or splint check or change (Acute) Hypertension (Acute) Vertigo (Acute) GERD (gastroesophageal reflux disease) (Chronic) Chest pain (Acute) Aortic aneurysm (Chronic) Migraine (Chronic) Prinzmetal's angina (Chronic) HTN (hypertension) (Chronic) Medical History (Updated 09/11/23 @ 04:23 by Ana Oden DO) Prinzmetal's angina Diverticulitis Sigmoid stricture Anxiety Colitis GERD (gastroesophageal reflux disease) Aortic aneurysm HTN (hypertension) Surgical History History of nephrectomy History of hysterectomy Social History Smoking Status: Former smoker Second Hand Exposure: No; Do You Dip or Chew Tobacco: No; Hx Alcohol Use: No Hx Substance Use: No Preferred Language: Citizen Of [place] Communication Ability: Effective Liquor Blender Required: No Beliefs That Will Affect Care: None Current Living Situation: Alone Feels Safe at Home: Yes Assistive Devices: Glasses Review of Systems Review of Systems: All systems reviewed & are unremarkable except as noted in HPI & below Physical Exam Physical Exam: General- Not in distress Head- atraumatic Eyes- PERRL, EOMI. ENT- oropharynx clear Neck- supple, no JVD. Lungs- clear to auscultation , No wheezing or crackles. Heart- regular rhythm; no murmur, no gallop. Abdomen- normal bowel sounds, soft, nontender, no distension. Extremities- no pretibial edema, no erythema seen Neuro- alert, oriented x 2; PERRL, EOMI; no facial palsy; no dysarthria; motor 3-4/5 bilaterally; co ordination of movements normal, No pronator drift, can lift and hold lower extremities, sensations intact, position sense intact. Skin- warm & dry Results & Data Results & Data Vital Signs (Past 12 Hours) Vital Signs Temp Pulse Resp BP Pulse Ox O2 Del Method 09/11/23 07:28 77 09/11/23 07:19 79 18 190/92 H 97 Room Air 09/11/23 07:17 78 20 203/119 H 98 Room Air 09/11/23 07:09 77 17 208/114 H 96 09/11/23 07:00 78 19 218/118 H 97 Room Air 09/11/23 06:31 78 185/99 H 09/11/23 06:00 186/86 H 09/11/23 06:00 76 22 98 09/11/23 06:00 76 186/86 H 09/11/23 05:52 172/96 H 09/11/23 05:52 74 13 98 09/11/23 05:50 75 14 97 09/11/23 05:40 73 16 97 09/11/23 05:30 74 15 97 09/11/23 05:27 209/110 H 09/11/23 05:26 77 209/110 H 09/11/23 05:24 209/110 H 09/11/23 05:24 79 13 09/11/23 05:05 72 22 195/114 H 96 Room Air 09/11/23 05:00 73 18 204/110 H 97 Room Air 09/11/23 04:47 73 21 180/107 H 95 Room Air 09/11/23 04:36 80 218/119 H 09/11/23 04:30 81 20 218/119 H 95 Room Air 09/11/23 04:26 98 H 09/11/23 04:24 83 22 220/128 H 96 Room Air 09/11/23 04:16 98 H 09/11/23 04:06 36.0 C L Diagnostic Findings Laboratory Results WBC 8.45 K/ul (4.8-10.8) 09/11/23 04:09 RBC 4.26 M/uL (4.20-5.40) 09/11/23 04:09 Hgb 12.9 g/dl (12.0-16.0) 09/11/23 04:09 Hct 40.2 % (37.0-47.0) 09/11/23 04:09 MCV 94.4 fL (80.0-100.0) 09/11/23 04:09 MCH 30.3 pg (25.0-34.0) 09/11/23 04:09 MCHC 32.1 g/dL (32.0-36.0) 09/11/23 04:09 RDW Std Deviation 47.0 fL (36.4-46.3) H 09/11/23 04:09 RDW Coeff of Maciej 14.6 % (11.5-14.5) H 09/11/23 04:09 Plt Count 268 K/uL (130-400) 09/11/23 04:09 MPV 8.7 fL (9.4-12.4) L 09/11/23 04:09 Immature Gran % (Auto) 0.4 % 09/11/23 04:09 Neut % (Auto) 47.8 % 09/11/23 04:09 Lymph % (Auto) 40.9 % 09/11/23 04:09 [place]haw % (Auto) 6.0 % 09/11/23 04:09 Eos % (Auto) 4.5 % 09/11/23 04:09 Baso % (Auto) 0.4 % 09/11/23 04:09 Neut # (Auto) 4.04 K/uL (1.40-6.50) 09/11/23 04:09 Lymph # (Auto) 3.46 K/uL (1.20-3.40) H 09/11/23 04:09 [place]haw # (Auto) 0.51 K/uL (0.11-0.59) 09/11/23 04:09 Eos # (Auto) 0.38 K/uL (0.00-0.50) 09/11/23 04:09 Baso # (Auto) 0.03 K/uL (0.00-0.20) 09/11/23 04:09 Immature Gran # (Auto) 0.03 K/uL (0.01-0.20) 09/11/23 04:09 PT 10.0 Seconds (9.0-12.0) 09/11/23 04:09 INR 0.9 (0.9-1.1) 09/11/23 04:09 APTT 25 Seconds (21-31) 09/11/23 04:09 PTT Ratio 0.9 09/11/23 04:09 Sodium 137 mmol/L (136-145) 09/11/23 04:09 Potassium 4.4 mmol/L (3.5-5.1) 09/11/23 04:09 Chloride 106 mmol/L (98-107) 09/11/23 04:09 Carbon Dioxide 23 mmol/L (21-32) 09/11/23 04:09 Anion Gap 8 (3-11) 09/11/23 04:09 BUN 45 mg/dl (6-23) H 09/11/23 04:09 Creatinine 2.09 mg/dl (0.6-1.2) H 09/11/23 04:09 Est Cr Clr Drug Dosing 13.4 ml/min 09/11/23 04:09 Est GFR ( Amer) 25.5 ml/min 09/11/23 04:09 Est GFR (Non-Af Amer) 22.0 ml/min 09/11/23 04:09 BUN/Creatinine Ratio 21.5 (10-20) H 09/11/23 04:09 Glucose 130 mg/dl (70-99(Fasting)) H 09/11/23 04:09 POC Glucose 117 mg/dl (70-99) H 09/11/23 04:13 Calcium 9.1 mg/dl (8.6-10.3) 09/11/23 04:09 Magnesium 1.7 mg/dl (1.7-2.4) 09/11/23 04:09 Total Bilirubin 0.2 mg/dl (0.2-1.0) 09/11/23 04:09 AST 20 U/L (13-39) 09/11/23 04:09 ALT 20 U/L (7-52) 09/11/23 04:09 Alkaline Phosphatase 75 U/L (34-104) 09/11/23 04:09 Troponin I High Sens 10.7 pg/ml (0-14) 09/11/23 04:09 Total Protein 6.8 gm/dl (6.0-8.3) 09/11/23 04:09 Albumin 3.5 gm/dl (3.4-5.0) 09/11/23 04:09 Globulin 3.3 gm/dl (2.5-4.0) 09/11/23 04:09 Albumin/Globulin Ratio 1.1 (0.9-2) 09/11/23 04:09 Impressions Chest X-Ray 09/11/23 04:06 XR chest 1V portable CLINICAL HISTORY: neuro deficit, acute stroke suspected TECHNIQUE: Single frontal radiograph of the chest was obtained. Comparison: Comparison is made to chest radiograph 01/09/2016 FINDINGS: No lines and tubes are seen. Calcified aortic knob is seen. The lungs are clear. No evidence of pleural effusion or pneumothorax. S-shaped scoliosis is seen. IMPRESSION: No acute chest disease. ACT 112: Negative or not required by law. Electronically signed by: Ross Tipton M.D. 09/11/2023 7:[address] 09/11/23 04:06 CR Exam(s): CT HEAD Without Contrast EXAM: CT Head Without Intravenous Contrast CLINICAL HISTORY: neuro deficit, acute stroke suspected. TECHNIQUE: Axial computed tomography images of the head/brain without intravenous contrast. CTDI is 35.29 mGy and DLP is 547.75 mGy-cm. Automated exposure control was utilized for the study. A dose lowering technique was utilized adhering to the principles of ALARA. COMPARISON: CT head without contrast dated 12/04/2014 FINDINGS: Brain: No intracranial hemorrhage. No significant mass-effect. No evidence for cortical infarct. Diffuse prominence of the cerebral sulci and sylvian fissures noted involving both cerebral hemispheres. Minimal periventricular deep white matter hypodense changes are slightly progressive from the previous examination. Ventricles: No midline shift or ventriculomegaly. Bones/joints: Unremarkable. No acute fracture. Soft tissues: Unremarkable. Sinuses: Unremarkable as visualized. No acute sinusitis. Mastoid air cells: Unremarkable as visualized. No mastoid effusion. IMPRESSION: No acute intracranial process or significant alteration from the previous examination with chronic underlying presumed incidental age- related findings, as noted above. Communications: Call Doctor Stroke Electronically signed by: Adalberto Nixon MD 09/11/23 04:37 AM ECG Additional Comments: ECG. Normal sinus rhythm rate of 98. Incomplete right bundle branch block. No acute ST changes seen. Code Status & VTE Plan VTE Prophylaxis Plan VTE Prophylaxis will be ordered: Yes
--- NOTE | 2023-09-11 08:15 | Nephrology Consultation ---
Date of Consultation September 11, 2023 Assessment & Plan (1) Hypertensive emergency without congestive heart failure: given her encephalopathy, this is a hypertensive emergency, though not clear how much of the confusion is acute. until proven otherwise will assume it's acute. confusion for neurologic emergency such as stroke. renal function is at/or better than baseline. troponin is wnl. given rapid/easy response to IV medications, concern she is not taking meds as OP. no cerebral edema on head CT so unlikely emesis is from increased ICP. presenting BP 200s to 2 teens over 100s to 110s, readily responsive to hydralazine, labetalol intermittent. >>Recommend Target blood pressure 160s to 180s systolic unless she is found to have an acute ischemic stroke for at least the next 24 hours; she has been so far appropriately lowered w/in hours to that target. Goal is to maintain it now for at least . If found to have acute ischemic stroke will need permissive HTN for first 24 hrs at least as she is not a reperfusion candidate. > she has responded to intermittent low doses of labetalol, hydralazine IV. do not believe she needs a drip at this time for BP control; would also defer nitro paste unless BP refractory given already severe TREVIZO and would use smallest possible dose if needed. > agree w/ MRI brain currently planned >ideally would evaluate for acute aortic dissection >> would avoid CT angiography; therefore recommend MRI angiography of chest/abdomen >> this is reasonable from renal standpoint provided group 2 (or second choice group 3) gadolinium agents used in this hospital (would need to d/w radiology but believe they use group 2 penelope agent); she is not stable enough currently for JEFFRY (2) CKD (chronic kidney disease) stage 4, GFR 15-29 ml/min: prior renal function had been in mid to high 2's at baseline; this in a cachectic patient with solitary kidney. her weight is at least stable for past few years approximately. she has repeatedly stated in the past she would not resume dialysis should the need arise; not in a condition to make/review decisions like that currently in my opinion some improvement in renal function w/ sustained lower body mass. her renal function is likely worse than eGFR suggests -daily bmp -no need for renal diet at this time (3) Failure to thrive in adult: concern that she's not been filling medications or attending physician appts x years; concern she is not eating/feeding herself adequately. last rxs filled wer 07/2022 for fioricet and hydralazine (4) Goals of care, counseling/discussion: this patient has consistently in the years I cared for her in past stated she would not be full code; however not sure that she would want hospice at this time; she is not in a position to tell us unfortunately. agree w/ goals of care discussion w/ sister. Plan complex medical decision making in pt at high risk for morbidity/ mortality and extra/unnecessary medical care. History of Present Illness Reason for Consultation: HERMANN on CKD Requesting Physician: Dr. Cheng Attending Physician: Amy Ruby MD History of Present Illness 77-year-old female whom I am asked to evaluate for acute on chronic kidney injury was admitted this morning for hypertensive urgency/emergency after presenting with altered mental status and acute kidney injury. 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 if reformed user now). She did in center hemodialysis via tunneled catheter for about 4 months but withdrew because of intractable headaches. She declined to pursue transplant evaluation primarily because she did not want to quit smoking or to pursue further invasive care. ESRD management plan has been for conservative care, at least historically. She was last seen in CKD clinic July 2021, noted at that time to have a 7% total body weight loss in the preceding year (weighed 38.8 kg in office that day notably; BMI 16 that day) and with creatinine improving in the setting of this weight loss to the mid to high twos as a new baseline. She canceled multiple appointments after that visit with kidney and other [facility] clinics to the point where nephrology was no longer renewing her medications until she came to an appointment. She called EMS this a.m. due to severe headaches and was noted to have systolic blood pressures in the 240s with confusion. On arrival to the hospital she was oriented x 2, but not to time. She did not recall contacting EMS or why she was in the hospital. CT head was unremarkable. Angiography was deferred due to renal dysfunction. She had 3 x 10 mg IV labetalol and a dose of hyrdralazine IV and systolic pressures which had been in the 200s and 2 teens improved to 160s to 170s, though they have rebounded intermittently. She was given medication for pain at imaging and had emesis with ? aspiration. her sats dropped from 98% RA to 92 % RA acutely w/ new onset thick cough. at my evaluation at about 915, she had ongoing severe headaches worse on the top of her head. She had somewhat intact remote memory Such as remembering me and my hobbies from our talks back in clinic in 2021 and that she had AAA repair at [facility] though she could not recall the year that it was done. She continued to have no recollection of whether she had been refilling her meds recently or taking them, how she had gotten to the hospital or who had called EMS. She refused to let the pharmacist look back to see what medications had been filled as an outpatient; but then did in front of the RN give permission for this to happen to me. She is asking about whether anyone has contacted her sister. She denied acute visual changes. Complained of bilateral ear pressure from sinuses she thought. Denies shortness of breath or recent cough. No chest pain/pressure or palpitations. No focal numbness or weakness. Complained of severely dry mouth. No abdominal pain, nausea vomiting diarrhea constipation. Denies new or worrisome voiding symptoms. No edema. No falls. Shortly after I saw her, ingrid renee called for further emesis w/ duskiness, bradycardia. Allergies Allergy/AdvReac Type Severity Reaction Status Date / Time clindamycin Allergy Intermediate SEVERE Verified 11/21/21 12:46 DIARRHEA ergotamine Allergy Intermediate severe TREVIZO Verified 11/21/21 12:46 mold Allergy Intermediate MIGRAINE TREVIZO Verified 11/21/21 12:46 NSAIDS (Non-Steroidal Allergy Unknown GI SYMPTOMS Verified 11/21/21 12:46 Anti-Inflamma Fungi Allergy Intermediate MIGRAINE TREVIZO Uncoded 11/21/21 12:46 Home Medications Medication Instructions Recorded Confirmed Type omeprazole magnesium 20 mg 20 mg PO DAILY 05/25/18 09/11/23 History tablet,delayed release (Prilosec OTC) amlodipine 5 mg tablet 10 mg PO DAILY 05/17/19 09/11/23 History hydralazine 10 mg tablet 10 mg PO UD hypertension 05/17/19 09/11/23 History metoprolol succinate 25 mg 25 mg PO UD 10/28/19 09/11/23 History tablet,extended release 24 hr (Toprol XL) [id number] 1 tab PO BID PRN migraine headache 06/14/22 09/11/23 Rx 50 mg-325 mg-40 mg tablet 30 days #60 tabs methimazole 5 mg tablet 5 mg PO DAILY #90 tabs 06/04/23 09/11/23 Rx acetaminophen 300 mg-codeine 30 mg 1 tab PO UD PRN pain 09/11/23 09/11/23 History tablet alprazolam 0.5 mg tablet 0.5 mg PO UD PRN anxiety 09/11/23 09/11/23 History eszopiclone 3 mg tablet (Lunesta) 3 mg PO UD 09/11/23 09/11/23 History Patient History Medical History CKD (chronic kidney disease) stage 5, GFR less than 15 ml/min Hyperthyroidism Kidney donor Prinzmetal's angina Diverticulitis Sigmoid stricture Anxiety Colitis GERD (gastroesophageal reflux disease) Aortic aneurysm HTN (hypertension) Surgical History History of AAA (abdominal aortic aneurysm) repair History of nephrectomy History of hysterectomy Social History (Updated 09/11/23 @ 10:37 by Kathleen Saez MD, PhD) Smoking Status: Former smoker Second Hand Exposure: No; Do You Dip or Chew Tobacco: No; Hx Alcohol Use: No Hx Substance Use: No Preferred Language: Botswanan Communication Ability: Effective 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 Required: No Beliefs That Will Affect Care: Spiritual marital status: / Current Living Situation: Alone Current Living Situation Comment: lives alone; sister in [place]; daughter/ 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 Feels Safe at Home: Yes Assistive Devices: Glasses Review of Systems 2 Review of Systems: All systems reviewed & are unremarkable except as noted in HPI & below Physical Exam 2 Constitutional: well developed, + acute distress (mild distress from TREVIZO), + cachectic, + altered mental status and cooperative Eyes: EOM intact bilaterally ENMT: Ears: no external ear abnormality Nose: no external nose abnormality Mouth: + dry oral mucous membranes Neck: no nuchal rigidity Respiratory: normal respiratory effort and + cough (frequent thick non productive cough) Auscultation: + diminished lung sounds Cardiovascular: RRR, no murmur, no edema Gastrointestinal (Abdomen): Inspection/Auscultation: normal bowel sounds and + scaphoid; abdomen not distended Percussion/Palpation: abdomen soft; abdomen nontender Musculoskeletal: Extremities: strength 5/5 throughout Skin: no rashes, warm and dry Neurologic: [place], fluent speech; fine resting tremor intermittently R hand and jaw; maneuvers independently for exam Psychiatric: Orientation: alert, oriented to person, oriented to place and cooperative; + not oriented to time Speech: normal rate/rhythm/volume of speech Insight: + limited insight immediate and remote memory as per HPI Results & Data Vital Signs (Past 12 Hours) Vital Signs Temp Pulse Resp BP Pulse Ox Pulse Ox O2 Del Method 09/11/23 07:49 98 Room Air 09/11/23 07:44 98 09/11/23 07:30 80 15 162/92 H 96 Room Air 09/11/23 07:28 77 09/11/23 07:19 79 18 190/92 H 97 Room Air 09/11/23 07:17 78 20 203/119 H 98 Room Air 09/11/23 07:09 77 17 208/114 H 96 09/11/23 07:00 78 19 218/118 H 97 Room Air 09/11/23 06:31 78 185/99 H 09/11/23 06:00 186/86 H 09/11/23 06:00 76 22 98 09/11/23 06:00 76 186/86 H 09/11/23 05:52 172/96 H 09/11/23 05:52 74 13 98 09/11/23 05:50 75 14 97 09/11/23 05:40 73 16 97 09/11/23 05:30 74 15 97 09/11/23 05:27 209/110 H 09/11/23 05:26 77 209/110 H 09/11/23 05:24 209/110 H 09/11/23 05:24 79 13 09/11/23 05:05 72 22 195/114 H 96 Room Air 09/11/23 05:00 73 18 204/110 H 97 Room Air 09/11/23 04:47 73 21 180/107 H 95 Room Air 09/11/23 04:36 80 218/119 H 09/11/23 04:30 81 20 218/119 H 95 Room Air 09/11/23 04:26 98 H 09/11/23 04:24 83 22 220/128 H 96 Room Air 09/11/23 04:16 98 H 09/11/23 04:06 36.0 C L O2 Del Method 09/11/23 07:49 09/11/23 07:44 Room Air 09/11/23 07:30 09/11/23 07:28 09/11/23 07:19 09/11/23 07:17 09/11/23 07:09 09/11/23 07:00 09/11/23 06:31 09/11/23 06:00 09/11/23 06:00 09/11/23 06:00 09/11/23 05:52 09/11/23 05:52 09/11/23 05:50 09/11/23 05:40 09/11/23 05:30 09/11/23 05:27 09/11/23 05:26 09/11/23 05:24 09/11/23 05:24 09/11/23 05:05 09/11/23 05:00 09/11/23 04:47 09/11/23 04:36 09/11/23 04:30 09/11/23 04:26 09/11/23 04:24 09/11/23 04:16 09/11/23 04:06 Laboratory Results 09/11/23 04:09 09/11/23 04:09 Diagnostic Findings Carotid duplex > no signfiicant stenosis head ct > No acute intracranial process or significant alteration from the previous examination with chronic underlying presumed incidental age- related findings, as noted above. CXR /initial > clear / no acute process; second CXR not much change on my review of images; report pending
[2023-09-11 08:35] LABS: Thyroid Stimulating Hormone 0.108 uIu/ml (0.300-4.500)
[2023-09-11] MEDS: ACETAMINOPHEN 325 MG TAB PO PRN (08:45)
[2023-09-11] MEDS: METOPROLOL SUCC 25MG EXT REL TAB PO SCH (08:45)
[2023-09-11] MEDS: amLODIPine BESYLATE 5 MG TAB PO SCH (08:45)
[2023-09-11] MEDS: PANTOprazole 40 MG TAB PO SCH (08:45)
[2023-09-11] MEDS: hydrALAZINE 10 MG TAB PO SCH (08:45)
[2023-09-11] MEDS: methIMAzole 5 MG TABLET PO SCH (08:45)
[2023-09-11] MEDS: traMADol HCL 50 MG TABLET PO PRN (08:45)
[2023-09-11] MEDS: ONDANSETRON INJ 2 MG/ML 2 ML VIAL IV PRN (08:53)
[2023-09-11 09:11] LABS: T4 Free Thyroxine 0.69 ng/dl (0.61-1.60)
--- NOTE | 2023-09-11 09:13 | Ultrasound Report ---
US carotid doppler BI CLINICAL HISTORY: 77 years-old Female with cva?. Acute strokelike symptoms COMPARISON: Head CT of same day TECHNIQUE: Multiple real time sonographic images of the carotid bifurcations were obtained assessing sanford scale, color Doppler and spectral wave form appearance FINDINGS: RIGHT CAROTID: The peak systolic velocity measured within the right ICA is 47 cm/sec. The end diast olic velocity measured 11 cm/sec. The ICA to CCA ratio measured 0.6 which correlates with a stenosis of 0-50%. Mild atherosclerosis. LEFT CAROTID: The peak systolic velocity measured within the left ICA is 63 cm/sec. The end diastol ic velocity measured 23 cm/sec. The ICA to CCA ratio measured 1.1 which correlates with a stenosis of 0-50%. Mild atherosclerosis. There is normal antegrade vertebral flow bilaterally. IMPRESSION: 1. Mild atherosclerosis without hemodynamically significant stenosis. 2. Normal antegrade vertebral flow bilaterally. ACT 112: Negative or not required by law. The above report was generated using voice recognition software. It may contain grammatical, syntax o r spelling errors. Electronically signed by: Gama Mukherjee M.D. 09/11/2023 9:11 AM
[2023-09-11] MEDS: HYDROmorphone INJ 0.5 MG/0.5 ML SYR IV STA ×2 (09:18→16:36)
[2023-09-11] MEDS: HYDROmorphone INJ 0.5 MG/0.5 ML SYR ONE (09:18)
[2023-09-11] MEDS: HEPARIN SOD 5,000 UNIT/0.5 ML VIAL SQ SCH (09:23)
[2023-09-11] MEDS: NITROGLYCERIN 2% OINTMENT 30GM TUBE EXT ONE (09:23)
--- NOTE | 2023-09-11 10:37 | Neurology Consultation ---
Date of Consultation September 11, 2023 Assessment & Plan (1) Headache: (2) Hypertensive emergency without congestive heart failure: Plan 77 yo woman with hx of uncontrolled hypertension presented with confusion, headache and SBP in the 240's. Her exam today is intact, she is oriented without focal deficits. Her head CT was negative for hemorrhage or evident ischemia. Suspect hypertensive encephalopathy, no further workup is needed. Lower the blood pressure by 25% in the first hour and then to 160/100 over the next 2-6 hours, and then gradually to normal over 2 days If she develops new neurological symptoms, please contact neurology Can follow up with her neurologist as outpatient. Neurology will sing off. Telehealth Consultation Telehealth Information Telehealth Information: I performed this visit using a real-time telehealth connection between my location and the patients location ([facility]). After connecting through interactive tele-video, patient was identified by name and date of and/or wristband check.Patient (or authorized healthcare escrow representative) was informed that this was a telemedicine visit and it was being conducted confidentially over secure lines. My office door was closed and no one else was present in the room with me.Patient (or authorized healthcare escrow representative) provided consent to proceed with the visit, expressed an understanding of privacy and security of the telemedicine visit, and gave permission to have a hospital escrow representative in the room in order to assist with the visit and to conduct portions of the visit, as needed. I informed the patient (or authorized healthcare escrow representative) that I reviewed their record and presented the opportunity for them to ask any questions regarding the visit today. The patient agreed to participate. History of Present Illness Reason for Consultation: Confusion Attending Physician: Amy Ruby MD History of Present Illness 77 year old woman with hx of AAA, tobacco use, ESRD, HTN, called EMS on 09/09 due to severe headache and hypertension, systolic in the 240s. Per chart, the patient seemed confused on arrival. Ct head was negative for acute hemorrhage or evident ischemia. CTA was not done due to ESRD. Reported headache improvement after BP management with IV labetalol. Now on Amlodipine and hydralazine. Per primary team, 4-5 second pause while her BP was high, thought to be vasovagal, now better. Allergies Allergy/AdvReac Type Severity Reaction Status Date / Time clindamycin Allergy Intermediate SEVERE Verified 11/21/21 12:46 DIARRHEA ergotamine Allergy Intermediate severe TREVIZO Verified 11/21/21 12:46 mold Allergy Intermediate MIGRAINE TREVIZO Verified 11/21/21 12:46 NSAIDS (Non-Steroidal Allergy Unknown GI SYMPTOMS Verified 11/21/21 12:46 Anti-Inflamma Fungi Allergy Intermediate MIGRAINE TREVIZO Uncoded 11/21/21 12:46 Home Medications Medication Instructions Recorded Confirmed Type omeprazole magnesium 20 mg 20 mg PO DAILY 05/25/18 09/11/23 History tablet,delayed release (Prilosec OTC) amlodipine 5 mg tablet 10 mg PO DAILY 05/17/19 09/11/23 History hydralazine 10 mg tablet 10 mg PO UD hypertension 05/17/19 09/11/23 History metoprolol succinate 25 mg 25 mg PO UD 10/28/19 09/11/23 History tablet,extended release 24 hr (Toprol XL) [id number]-[id number]-[id number] 1 tab PO BID PRN migraine headache 06/14/22 09/11/23 Rx 50 mg-325 mg-40 mg tablet 30 days #60 tabs methimazole 5 mg tablet 5 mg PO DAILY #90 tabs 06/04/23 09/11/23 Rx acetaminophen 300 mg-codeine 30 mg 1 tab PO UD PRN pain 09/11/23 09/11/23 History tablet alprazolam 0.5 mg tablet 0.5 mg PO UD PRN anxiety 09/11/23 09/11/23 History eszopiclone 3 mg tablet (Lunesta) 3 mg PO UD 09/11/23 09/11/23 History Patient History Medical History CKD (chronic kidney disease) stage 5, GFR less than 15 ml/min Hyperthyroidism Kidney donor Prinzmetal's angina Diverticulitis Sigmoid stricture Anxiety Colitis GERD (gastroesophageal reflux disease) Aortic aneurysm HTN (hypertension) Surgical History History of AAA (abdominal aortic aneurysm) repair History of nephrectomy History of hysterectomy Social History Smoking Status: Former smoker Second Hand Exposure: No; Do You Dip or Chew Tobacco: No; Hx Alcohol Use: No Hx Substance Use: No Preferred Language: Turkish Communication Ability: Effective Instrument Maker Apprentice Required: No Beliefs That Will Affect Care: Spiritual marital status: / Current Living Situation: Alone Current Living Situation Comment: lives alone; sister in [place]; daughter/ 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 Neurologic Exam: Mental Status: Awake and alert. Oriented to person, place, time. Fluent. Naming, repetition, and comprehension to multi-step commands intact. Affect appropriate. Cranial Nerves: III/IV/: Versions intact without nystagmus, no gaze preference VII: Facial expression symmetric VIII: Hearing intact to voice IX/X: Normal speech without dysarthria XI: Shoulder shrug symmetric XII: Tongue midline Motor: Movements are natural bilaterally and there's no rest or postural tremor, pronator drift, or adventitious movement. Coordination: Finger and hand tapping and finger to nose were without ataxia Results & Data Vital Signs (Past 12 Hours) Vital Signs Temp Pulse Resp BP Pulse Ox Pulse Ox O2 Del Method 09/11/23 10:00 89 36 H 156/94 H 92 Room Air 09/11/23 09:49 93 H 28 H 203/107 H 93 Room Air 09/11/23 09:47 0 L 09/11/23 09:45 92 H 23 207/128 H 91 Room Air 09/11/23 09:30 95 H 21 181/104 H 91 Room Air 09/11/23 09:27 36.7 C 09/11/23 09:15 92 H 20 168/91 H 93 Room Air 09/11/23 09:00 97 H 26 H 206/102 H 93 Room Air 09/11/23 08:15 93 H 16 187/100 H 96 Room Air 09/11/23 08:00 84 17 170/92 H 97 Room Air 09/11/23 07:49 98 Room Air 09/11/23 07:45 85 18 158/116 H 97 09/11/23 07:44 98 09/11/23 07:30 80 15 162/92 H 96 Room Air 09/11/23 07:28 77 09/11/23 07:19 79 18 190/92 H 97 Room Air 09/11/23 07:17 78 20 203/119 H 98 Room Air 09/11/23 07:09 77 17 208/114 H 96 09/11/23 07:00 78 19 218/118 H 97 Room Air 09/11/23 06:31 78 185/99 H 09/11/23 06:00 186/86 H 09/11/23 06:00 76 22 98 09/11/23 06:00 76 186/86 H 09/11/23 05:52 172/96 H 09/11/23 05:52 74 13 98 09/11/23 05:50 75 14 97 09/11/23 05:40 73 16 97 09/11/23 05:30 74 15 97 09/11/23 05:27 209/110 H 09/11/23 05:26 77 209/110 H 09/11/23 05:24 209/110 H 09/11/23 05:24 79 13 09/11/23 05:05 72 22 195/114 H 96 Room Air 09/11/23 05:00 73 18 204/110 H 97 Room Air 09/11/23 04:47 73 21 180/107 H 95 Room Air 09/11/23 04:36 80 218/119 H 09/11/23 04:30 81 20 218/119 H 95 Room Air 09/11/23 04:26 98 H 09/11/23 04:24 83 22 220/128 H 96 Room Air 09/11/23 04:16 98 H 09/11/23 04:06 36.0 C L O2 Del Method 09/11/23 10:00 09/11/23 09:49 09/11/23 09:47 09/11/23 09:45 09/11/23 09:30 09/11/23 09:27 09/11/23 09:15 09/11/23 09:00 09/11/23 08:15 09/11/23 08:00 09/11/23 07:49 09/11/23 07:45 09/11/23 07:44 Room Air 09/11/23 07:30 09/11/23 07:28 09/11/23 07:19 09/11/23 07:17 09/11/23 07:09 09/11/23 07:00 09/11/23 06:31 09/11/23 06:00 09/11/23 06:00 09/11/23 06:00 09/11/23 05:52 09/11/23 05:52 09/11/23 05:50 09/11/23 05:40 09/11/23 05:30 09/11/23 05:27 09/11/23 05:26 09/11/23 05:24 09/11/23 05:24 09/11/23 05:05 09/11/23 05:00 09/11/23 04:47 09/11/23 04:36 09/11/23 04:30 09/11/23 04:26 09/11/23 04:24 09/11/23 04:16 09/11/23 04:06 Laboratory Results Abnormal lab results 09/11/23 09/11/23 09/11/23 Range/Units 04:09 04:13 09:40 RDW Std Deviation 47.0 H (36.4-46.3) fL RDW Coeff of Maciej 14.6 H (11.5-14.5) % MPV 8.7 L (9.4-12.4) fL Lymph # (Auto) 3.46 H (1.20-3.40) K/uL BUN 45 H (6-23) mg/dl Creatinine 2.09 H (0.6-1.2) mg/dl BUN/Creatinine Ratio 21.5 H (10-20) Glucose 130 H (70-99(Fasting)) mg/dl POC Glucose 117 H 130 H (70-99) mg/dl TSH 0.108 L (0.300-4.500) uIu/ml Medications Administered Home Medications Medication Instructions Recorded Confirmed Last Taken omeprazole magnesium 20 mg 20 mg PO DAILY 05/25/18 09/11/23 05/27/18 12:00 tablet,delayed release (Prilosec OTC) amlodipine 5 mg tablet 10 mg PO DAILY 05/17/19 09/11/23 Unknown hydralazine 10 mg tablet 10 mg PO UD hypertension 05/17/19 09/11/23 Unknown metoprolol succinate 25 mg 25 mg PO UD 10/28/19 09/11/23 Unknown tablet,extended release 24 hr (Toprol XL) [id number]-[id number] 1 tab PO BID PRN migraine headache 06/14/22 09/11/23 Unknown 50 mg-325 mg-40 mg tablet 30 days #60 tabs methimazole 5 mg tablet 5 mg PO DAILY #90 tabs 06/04/23 09/11/23 Unknown acetaminophen 300 mg-codeine 30 mg 1 tab PO UD PRN pain 09/11/23 09/11/23 Unknown tablet alprazolam 0.5 mg tablet 0.5 mg PO UD PRN anxiety 09/11/23 09/11/23 Unknown eszopiclone 3 mg tablet (Lunesta) 3 mg PO UD 09/11/23 09/11/23 Unknown Active Medications Generic Name Dose Route Start Last Admin Trade Name Freq PRN Reason Stop Dose Admin Acetaminophen 650 mg 09/11/23 07:25 09/11/23 08:45 Acetaminophen 325 Mg Tab PO 10/11/23 07:24 650 mg Q4H PRN Administration Pain or Fever Amlodipine Besylate 10 mg 09/11/23 09:00 09/11/23 08:45 Amlodipine Besylate 5 Mg Tab PO 10/11/23 08:59 10 mg QAM ZAK Administration Heparin Sodium (Porcine) 5,000 units 09/11/23 09:00 09/11/23 09:23 Heparin Sod 5,000 Unit/0.5 Ml Vial SQ 10/11/23 08:59 5,000 units Q12 ZAK Administration Hydralazine HCl 10 mg 09/11/23 09:00 09/11/23 08:45 Hydralazine 10 Mg Tab PO 10/11/23 08:59 10 mg BID ZAK Administration Sodium Chloride 1,000 mls @ 75 mls/hr 09/11/23 07:25 09/11/23 07:45 Nss IV 09/11/23 20:44 75 mls/hr .[id number] ZAK Administration Methimazole 5 mg 09/11/23 09:00 09/11/23 08:45 Methimazole 5 Mg Tablet PO 10/11/23 08:59 5 mg DAILY ZAK Administration Metoprolol Succinate 25 mg 09/11/23 09:00 09/11/23 08:45 Metoprolol Succ 25mg Ext Rel Tab PO 10/11/23 08:59 25 mg QAM ZAK Administration Ondansetron HCl 4 mg 09/11/23 07:25 09/11/23 08:53 Ondansetron Inj 2 Mg/Ml 2 Ml Vial IV 10/11/23 07:24 4 mg Q6H PRN Administration Nausea Pantoprazole Sodium 40 mg 09/11/23 09:00 09/11/23 08:45 Pantoprazole 40 Mg Tab PO 10/11/23 08:59 40 mg DAILY ZAK Administration Tramadol HCl 50 mg 09/11/23 07:25 09/11/23 08:45 Tramadol Hcl 50 Mg Tablet PO 10/11/23 07:24 50 mg Q6H PRN Administration Mod-Sev Pain (Scale 4-10)
[2023-09-11 11:02] LABS: iSTAT Creatinine 2.3 mg/dl (0.6-1.3); iSTAT Hemoglobin 12.2 g/dl (12.0-16.0); iSTAT Ionized Calcium 1.2 mmol/l (1.12-1.32); iSTAT Potassium 4.2 mmol/L (3.3-5.0)
[2023-09-11 11:08] LABS: Appearance Urine Clear (Clear); Bacteria Urine Automated None Seen (None Seen); Bilirubin Urine Negative (Negative); Blood Urine Negative (Negative); Cast Urine Automated 0-2 /lpf (0-2); Color Urine Yellow; Epithelial Cell Urine Auto 0-2 /hpf (0-2); Glucose Urine UA Negative (Negative); Ketones Urine Negative (Negative); Leukocyte Esterase Urine Negative (Negative); Nitrite Urine Negative (Negative); Protein Urine 2+ (Negative); RBC Urine Automated 0-2 /hpf (0-2); Specific Gravity Urine 1.013 (1.000-1.030); Urobilinogen Urine Negative (Negative); WBC Urine Automated 0-5 /hpf (0-5)
--- NOTE | 2023-09-11 11:35 | Communication Note ---
Date of Service: September 11, 2023 Nirmal Mitchell called this morning. Patient was at CT and started vomiting; suspect she vomited her AM medications. Patient had 4 second asystolic pause that re solved back to NSR on its own without medicinal intervention. BP 207/128. Received Dilaudid 0.25 this AM for migraine control; likely secondary to HTN. Myself, Dr. Ruby and Araceli Del Angel PA-C at bedside. Pt AAOx1 with confusion. Denies chest pain. Morning labs reviewed, no leukocytosis. Patient denies chest pain or SOB. Complaints of migraine. CXR obtained. Neuro consult (previously ordered) occurred while we were in the room. Mental status has improved back to what appears to be baseline. AAOx4 and BP decreased to 154 systolic. Patients sister, Dariela, at bedside. Lengthy conversation held regarding CODE STATUS as patient previously listed as full code. Neurology notes from a few years ago indicated DNR/DNR. Patient's sister has hardcopy advanced directive and hand indicating DNR/DNR without heroic measures outside of IV antibiotics for treatment. This conversation led to the fact that the patient does live alone at home and while she is able to perform her own ADLs independently does have periods of time when her migraines and HTN are uncontrolled where she does have altered mental status. Patient sister lives 1 hour away and is interested in hearing more about hospice services with her near ESRD as a diagnosis. For now would recommend outpatient palliative medicine upon discharge to continue goals of care conversation to allow appropriate in-home care to be arranged if necessary. All of the above discussed with daily attending Dr. Ruby. CODE STATUS changed in [facility] to reflect DNR/DNI without resuscitation. This encounter not billed for.
--- NOTE | 2023-09-11 12:30 | Cardiology Consultation ---
Date of Consultation September 11, 2023 Assessment & Plan (1) Hypertensive emergency without congestive heart failure: (2) Heart block AV second degree: (3) Vasovagal reaction: (4) Headache: (5) Incomplete RBBB: Plan I had a long discussion with the patient and her sister regarding patient's uncontrolled hypertension and importance of compliance with outpatient medications. Restart oral amlodipine and hydralazine. I will reorder these medications now due to vomiting earlier this a.m. Hold Toprol-XL due to transient second-degree AV block in the setting of vasovagal reaction. Prefer to avoid topical nitrates due to headaches. Recommend gradual reduction of blood pressure to target range over the next 48 hours. Currently no indication for continuous IV infusion, however, I would consider Cardene infusion if blood pressure remains elevated/uncontrolled and she continues to have difficulty with oral medications due to ongoing nausea and vomiting. Brain MRI pending at this time. Review resting 2D transthoracic echocardiogram. History of Present Illness Reason for Consultation: Hypertensive urgency Requesting Physician: Dr. Cheng Attending Physician: mAy Ruby MD History of Present Illness 77-year-old female brought to the ER via EMS due to headache and nausea. Patient confused per review of ER records. Blood pressure significantly elevated, 200s/100s with severe headache, 10/10 on presentation. Blood pressure responding to IV labetalol and hydralazine in ER. Patient seen and examined at the bedside. Oriented to person and place, however, somewhat confused regarding events leading up to hospitalization. Sis ter present at bedside reporting noncompliance with medications. Patient currently complaining of recurrent headache with elevated blood pressure. Experienced episode of severe nausea and vomiting at approximately 940 today. The event was associated with second-degree AV block and several pauses lasting 3-5 seconds. No overt syncope. Event was witnessed by nursing staff. States patient vomited up all a.m. medications including amlodipine, metoprolol, and amlodipine. Patient denies history of lightheadedness, dizziness, syncope, or near syncope. No chest discomfort, heaviness, or shortness of breath prior to admission. Significant tobacco history quitting approximately 2 months ago. Denies personal history of coronary disease, congestive heart failure, diabetes, or rheumatic fever as a child. Outpatient antihypertensive medications include amlodipine 10 mg daily, Toprol- XL 25 mg daily, and hydralazine 20 mg twice daily. Allergies Allergy/AdvReac Type Severity Reaction Status Date / Time clindamycin Allergy Intermediate SEVERE Verified 11/21/21 12:46 DIARRHEA ergotamine Allergy Intermediate severe TREVIZO Verified 11/21/21 12:46 mold Allergy Intermediate MIGRAINE TREVIZO Verified 11/21/21 12:46 NSAIDS (Non-Steroidal Allergy Unknown GI SYMPTOMS Verified 11/21/21 12:46 Anti-Inflamma Fungi Allergy Intermediate MIGRAINE TREVIZO Uncoded 11/21/21 12:46 Home Medications Medication Instructions Recorded Confirmed Type omeprazole magnesium 20 mg 20 mg PO DAILY 05/25/18 09/11/23 History tablet,delayed release (Prilosec OTC) amlodipine 5 mg tablet 10 mg PO DAILY 05/17/19 09/11/23 History hydralazine 10 mg tablet 10 mg PO UD hypertension 05/17/19 09/11/23 History metoprolol succinate 25 mg 25 mg PO UD 10/28/19 09/11/23 History tablet,extended release 24 hr (Toprol XL) [id number] 1 tab PO BID PRN migraine headache 06/14/22 09/11/23 Rx 50 mg-325 mg-40 mg tablet 30 days #60 tabs methimazole 5 mg tablet 5 mg PO DAILY #90 tabs 06/04/23 09/11/23 Rx acetaminophen 300 mg-codeine 30 mg 1 tab PO UD PRN pain 09/11/23 09/11/23 History tablet alprazolam 0.5 mg tablet 0.5 mg PO UD PRN anxiety 09/11/23 09/11/23 History eszopiclone 3 mg tablet (Lunesta) 3 mg PO UD 09/11/23 09/11/23 History Patient History Medical History CKD (chronic kidney disease) stage 5, GFR less than 15 ml/min Hyperthyroidism Kidney donor Prinzmetal's angina Diverticulitis Sigmoid stricture Anxiety Colitis GERD (gastroesophageal reflux disease) Aortic aneurysm HTN (hypertension) Surgical History History of AAA (abdominal aortic aneurysm) repair History of nephrectomy History of hysterectomy Social History Smoking Status: Former smoker Second Hand Exposure: No; Do You Dip or Chew Tobacco: No; Hx Alcohol Use: No Hx Substance Use: No Preferred Language: Azerbaijani Communication Ability: Effective Team Lead Required: No Beliefs That Will Affect Care: Spiritual marital status: / Current Living Situation: Alone Current Living Situation Comment: lives alone; sister in [place]; daughter/ current occupational status: retired 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 Feels Safe at Home: Yes Assistive Devices: Glasses Review of Systems Review of Systems: All systems reviewed & are unremarkable except as noted in Subjective Physical Exam Constitutional: + ill appearing and + thin Respiratory: normal respiratory effort; no respiratory distress Auscultation: + diminished lung sounds (Bilateral); no rales, no rhonchi and no wheezes Cardiovascular: Rate/Rhythm: regular rate and regular rhythm Heart Sounds: normal S1 and normal S2; no murmur Vessels: radial pulses present; no JVD and no carotid bruit Extremities: no edema Gastrointestinal (Abdomen): Inspection/Auscultation: normal bowel sounds; abdomen not distended Percussion/Palpation: abdomen soft; abdomen nontender, no guarding and abdomen not rigid Neurologic: CN's II-XI intact bilaterally and moves all extremities; no focal motor deficits Results & Data Vital Signs (Past 12 Hours) Vital Signs Temp Pulse Resp BP Pulse Ox Pulse Ox O2 Del Method 09/11/23 12:00 79 14 142/83 H 94 Room Air 09/11/23 11:45 81 14 163/90 H 94 Room Air 09/11/23 11:30 85 25 H 170/92 H 94 Room Air 09/11/23 11:15 86 26 H 184/101 H 94 Room Air 09/11/23 11:00 83 24 172/99 H 94 Room Air 09/11/23 10:45 83 18 172/98 H 92 Room Air 09/11/23 10:15 88 26 H 161/93 H 92 Room Air 09/11/23 10:00 89 36 H 156/94 H 92 Room Air 09/11/23 09:49 93 H 28 H 203/107 H 93 Room Air 09/11/23 09:47 0 L 09/11/23 09:45 92 H 23 207/128 H 91 Room Air 09/11/23 09:30 95 H 21 181/104 H 91 Room Air 09/11/23 09:27 36.7 C 09/11/23 09:15 92 H 20 168/91 H 93 Room Air 09/11/23 09:00 97 H 26 H 206/102 H 93 Room Air 09/11/23 08:15 93 H 16 187/100 H 96 Room Air 09/11/23 08:00 84 17 170/92 H 97 Room Air 09/11/23 07:49 98 Room Air 09/11/23 07:45 85 18 158/116 H 97 09/11/23 07:44 98 09/11/23 07:30 80 15 162/92 H 96 Room Air 09/11/23 07:28 77 09/11/23 07:19 79 18 190/92 H 97 Room Air 09/11/23 07:17 78 20 203/119 H 98 Room Air 09/11/23 07:09 77 17 208/114 H 96 09/11/23 07:00 78 19 218/118 H 97 Room Air 09/11/23 06:31 78 185/99 H 09/11/23 06:00 186/86 H 09/11/23 06:00 76 22 98 09/11/23 06:00 76 186/86 H 09/11/23 05:52 172/96 H 09/11/23 05:52 74 13 98 09/11/23 05:50 75 14 97 09/11/23 05:40 73 16 97 09/11/23 05:30 74 15 97 09/11/23 05:27 209/110 H 09/11/23 05:26 77 209/110 H 09/11/23 05:24 209/110 H 09/11/23 05:24 79 13 09/11/23 05:05 72 22 195/114 H 96 Room Air 09/11/23 05:00 73 18 204/110 H 97 Room Air 09/11/23 04:47 73 21 180/107 H 95 Room Air 09/11/23 04:36 80 218/119 H 09/11/23 04:30 81 20 218/119 H 95 Room Air 09/11/23 04:26 98 H 09/11/23 04:24 83 22 220/128 H 96 Room Air 09/11/23 04:16 98 H 09/11/23 04:06 36.0 C L O2 Del Method 09/11/23 12:00 09/11/23 11:45 09/11/23 11:30 09/11/23 11:15 09/11/23 11:00 09/11/23 10:45 09/11/23 10:15 09/11/23 10:00 09/11/23 09:49 09/11/23 09:47 09/11/23 09:45 09/11/23 09:30 09/11/23 09:27 09/11/23 09:15 09/11/23 09:00 09/11/23 08:15 09/11/23 08:00 09/11/23 07:49 09/11/23 07:45 09/11/23 07:44 Room Air 09/11/23 07:30 09/11/23 07:28 09/11/23 07:19 09/11/23 07:17 09/11/23 07:09 09/11/23 07:00 09/11/23 06:31 09/11/23 06:00 09/11/23 06:00 09/11/23 06:00 09/11/23 05:52 09/11/23 05:52 09/11/23 05:50 09/11/23 05:40 09/11/23 05:30 09/11/23 05:27 09/11/23 05:26 09/11/23 05:24 09/11/23 05:24 09/11/23 05:05 09/11/23 05:00 09/11/23 04:47 09/11/23 04:36 09/11/23 04:30 09/11/23 04:26 09/11/23 04:24 09/11/23 04:16 09/11/23 04:06 Laboratory Results Cardiac Enzymes 09/11/23 Range/Units 04:09 AST 20 (13-39) U/L Troponin I High Sens 10.7 (0-14) pg/ml Coagulation 09/11/23 Range/Units 04:09 PT 10.0 (9.0-12.0) Seconds APTT 25 (21-31) Seconds CBC 09/11/23 Range/Units 04:09 WBC 8.45 (4.8-10.8) K/ul RBC 4.26 (4.20-5.40) M/uL Hgb 12.9 (12.0-16.0) g/dl Hct 40.2 (37.0-47.0) % Plt Count 268 (130-400) K/uL Neut # (Auto) 4.04 (1.40-6.50) K/uL Lymph # (Auto) 3.46 H (1.20-3.40) K/uL [place] # (Auto) 0.51 (0.11-0.59) K/uL Eos # (Auto) 0.38 (0.00-0.50) K/uL Baso # (Auto) 0.03 (0.00-0.20) K/uL Comprehensive Metabolic Panel 09/11/23 Range/Units 04:09 Sodium 137 (136-145) mmol/L Potassium 4.4 (3.5-5.1) mmol/L Chloride 106 (98-107) mmol/L Carbon Dioxide 23 (21-32) mmol/L BUN 45 H (6-23) mg/dl Creatinine 2.09 H (0.6-1.2) mg/dl Glucose 130 H (70-99(Fasting)) mg/dl Calcium 9.1 (8.6-10.3) mg/dl AST 20 (13-39) U/L ALT 20 (7-52) U/L Alkaline Phosphatase 75 (34-104) U/L Total Protein 6.8 (6.0-8.3) gm/dl Albumin 3.5 (3.4-5.0) gm/dl Intake and Output 09/10/23 09/11/23 09/11/23 22:59 06:59 14:59 Intake Total 58.2 / 58.2 Balance 58.2 / 58.2 Intake: IV 58.2 / 58.2 ACETAMINOPHEN 10MG/ML Custom 58.2 / 58.2 582 mg In Empty Bag 0 ml @ 232. 8 mls/hr IV NOW STA Rx#: [id number] Other: Weight 38.8 kg Weight Measurement Method Built in [facility] ECG Additional Comments: ECG: Normal sinus rhythm, incomplete right bundle branch block (4) Headache Headache chronicity pattern: acute headache Headache type: unspecified Intractability: not intractable Qualified Code(s): R51.9 - Headache, unspecified
[2023-09-11] MEDS ORDERED: ACETAMINOPHEN 1,000 MG/100 ML VIAL IV PRN (12:54)
[2023-09-11] MEDS: ACETAMINOPHEN 10MG/ML Custom 550 MG in EMPTY BAG 0 ML IV PRN (13:41)
[2023-09-11] MEDS: LABETALOL HCL IV 5 MG/ML 20ML IV PRN (13:41)
[2023-09-11] MEDS: ONDANSETRON INJ 2 MG/ML 2 ML VIAL IV STA (14:00)
[2023-09-11] MEDS: hydrALAZINE 10 MG TAB PO ONE (14:00)
[2023-09-11] MEDS: amLODIPine BESYLATE 5 MG TAB PO ONE (14:00)
--- NOTE | 2023-09-11 14:21 | XRay Report ---
XR chest 1V portable CLINICAL HISTORY: Aspiration TECHNIQUE: Single frontal radiograph of the chest was obtained. Comparison: Comparison is made to chest radiograph 09/11/2023 FINDINGS: No lines and tubes are seen. Calcified aortic knob is seen. The lungs are clear. No evidence of pleur al effusion or pneumothorax. IMPRESSION: No acute abnormalities and in particular no radiographic evidence of pneumonia. ACT 112: Negative or not required by law. Electronically signed by: Ross Tipton M.D. 09/11/2023 2:20 PM
--- NOTE | 2023-09-11 15:29 | Electrocardiogram Report ---
Test Reason : Blood Pressure : / mmHG Vent. Rate : 098 BPM Atrial Rate : 098 BPM P-R Int : 144 ms QRS Dur : 104 ms QT Int : 374 ms P-R-T Axes : -24 -24 -03 degrees QTc Int : 477 ms Normal sinus rhythm Incomplete right bundle branch block Borderline ECG When compared with ECG of 09-JAN-2016 16:10, Vent. rate has increased BY 37 BPM Incomplete right bundle branch block is now Present Confirmed by Papi Robertson ([id number]) on 09/11/2023 3:28:46 PM Referred By: REFERRED SELF Confirmed By:Papi Robertson
[2023-09-11] MEDS ORDERED: PROMETHAZINE HCL 12.5 MG in SODIUM CHLORIDE 0.9% 50 ML IV STA (16:21)
[2023-09-11] MEDS: PROMETHAZINE 12.5 MG/50.5 ML NSS IV ONE (16:38)
[2023-09-11] MEDS: PROMETHAZINE 12.5 MG/50.5 ML BAG IV ONE (16:58)
--- NOTE | 2023-09-11 18:03 | Magnetic Resonance Report ---
MRI OF THE BRAIN WITHOUT IV CONTRAST CLINICAL HISTORY: Strokelike symptoms. Headache. Nausea and vomiting. COMPARISON STUDY: CT of the brain dated 09/11/2023. TECHNIQUE: MRI of the brain was performed utilizing various T1 and T2-weighted sequences in the axial , sagittal, and coronal planes. IV contrast was not administered for this examination. The examinatio n is degraded by motion artifact. FINDINGS: Brain parenchyma: There is age-related involutional change noting mild subcortical and periventricula r microangiopathic disease. There is no hemorrhage or mass effect. There is no restricted diffusion t o suggest acute ischemia. Montgomery-white matter differentiation is preserved. No extra-axial fluid collec tion is seen. The cerebellar tonsils are normal in configuration. Ventricles, sulci, and cisterns: Prominent secondary to involutional change. Pituitary and sella: Unremarkable. Intracranial vasculature: Normal flow voids are maintained at the skull base. Orbits: The bony orbits are grossly intact. Orbital contents are normal in appearance. Sinuses and mastoids: A 13 mm retention cyst is noted in the left maxillary antrum. There is mild muc osal thickening in the sphenoid sinuses. The remaining paranasal sinuses and mastoid air cells are cl ear. Calvarium: Unremarkable. Cervical cord: Partially visualized cervical spinal cord is normal in morphology and signal intensity . IMPRESSION: No acute intracranial abnormality. ACT 112: Negative or not required by law. Electronically signed by: Jakob Sheppard M.D. 09/11/2023 6:01 PM
--- OUTSIDE RECORDS SUMMARY | 2023-09-12 02:44 | External Medical Summary | Summary of Care ---
Author Name Unknown Organization [facility] Address [address] [place] [address] Phone [phone] Care Team Providers Care Slip Cover Sewer Name Role Phone Fátima Escalante DO Primary Care Provider [phone] Reason for Visit * Reason Onset Date Comments Medication Refill 05/27/2023 Encounter Details Date Type Department Care Team (Late st Contact Info) Description 05/27/2023 Refill Nephrology, [facility] [address] [place] [address] Timo Reyes MD [address] [place] [address] CKD (chronic kidney disease), stage V (HCC); Hypertension with goal of symptom management only Allergies Active Allergy Reactions Criticality Noted Date Comments Clindamycin Diarrhea 11/20/2010 Ergotamine Neuro complications (Please comment) 11/20/2010 Increased headache Other reaction(s): Other See Comments Increased headache Intense head pain Iodine 01/01/2017 On methimazole, pt stated IV contrast dye, not Iodine itself Molds & Smuts Neuro complications (Please comment) 11/08/2015 Migraines documented as of this encounter (statuses as of 05/28/2023) Medications Medication Sig Dispensed Refills Start Date End Date Status FLONASE 50 MCG/ACT NA SUSPIndications:Po lyp of nasal cavity two sprays each nostril once daily 1 BOTTLE 5 07/26/2003 Active LUNESTA 3 MG PO TABS 1 pill at bedtime as needed 0 Active ALPRAZolam (XANAX) 0.5 MG Tablet Take 0.5 mg by mouth 2 times a day as needed. 0 12/30/2015 Active Famotidine-Ca Carb-Mag Hydrox (PEPCID COMPLETE) 10-800-165 MG CHEW Take by mouth as needed. 0 Active butalbital-acetami nophen-caffeine 50-325-40 mg per tab (FIORICET) 50-325-40 MG Take 1 Tab by mouth. 0 11/20/2017 Active omeprazole (PRILOSEC) 20 MG CPDR Take 20 mg by mouth. 0 Active ondansetron (ZOFRAN) 8 MG Tablet Take 1 Tab by mouth every 6 hours as needed for Nausea. 90 Tab 1 05/19/2018 Active acetaminophen-code ine 300-30 mg per tab (TYLENOL WITH CODEINE #3) 300-30 MG per TabletIndications: Other headache syndrome Take 1 Tab by mouth every 4 hours as needed for Pain. 30 Tab 0 07/09/2018 Active traMADol (ULTRAM) 50 MG TabletIndications: Migraine with aura and without status migrainosus, not intractable Take 1 Tab by mouth every 6 hours as needed for Pain. 30 Tab 0 08/03/2019 Active methimazole (TAPAZOLE) 10 MG Tablet Take 5 mg by mouth daily. 0 09/03/2019 Active Cholecalciferol 50 MCG (2000 UT) Oral Capsule Take 1 Cap by mouth daily. 0 09/20/2020 Active Toprol XL 25 MG Oral Tablet Extended Release 24 Hour take 1 tablet by mouth every morning 90 Tablet 0 06/13/2022 Active hydrALAZINE HCl 10 MG Oral Tablet (Apresoline)Indica tions:CKD (chronic kidney disease), stage V (HCC),Hypertension with goal of symptom management only take 2 tablets by mouth every morning and BEFORE BEDTIME MAY TAKE AN EXTRA 20MG FOR SBP >170 420 Tablet 0 05/28/2023 Active amLODIPine Besylate 5 MG Oral Tablet (Norvasc) take 2 tablets by mouth once daily 180 Tablet 0 05/28/2023 Active amLODIPine Besylate 5 MG Oral Tablet (Norvasc) take 2 tablets by mouth once daily 180 Tablet 0 08/09/2022 05/27/2023 Discontinued (Refill) hydrALAZINE HCl 10 MG Oral Tablet (Apresoline)Indica tions:CKD (chronic kidney disease), stage V (HCC),Hypertension with goal of symptom management only take 2 tablets by mouth every morning and BEFORE BEDTIME MAY TAKE AN EXTRA 20MG FOR SBP >170 420 Tablet 0 10/21/2022 05/27/2023 Discontinued (Refill) documented as of this encounter (statuses as of 05/28/2023) Active Problems Problem Noted Date Diagnosed Date Symptomatic care patient 07/10/2018 History of colon polyps 07/08/2018 DNR (do not resuscitate) 07/03/2018 CKD (chronic kidney disease), stage V 07/03/2018 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 History of tobacco use 09/05/2014 Osteoporosis 02/13/1999 Mixed dyslipidemia 12/22/1998 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 donor 05/25/1997 CLASSICAL MIGRAINE WITHOU MENTION OF INTRACTABLE MIGRAINE 05/25/1997 Esophageal reflux documented as of this encounter (statuses as of 05/28/2023) Resolved Problems Problem Noted Date Diagnosed Date Resolved Date Hospice care patient 07/03/2018 019 Chest wall pain 11/13/2017 05/19/2018 Abnormal thyroid function test 05/08/2015 07/10/2018 AAA (abdominal aortic aneurysm) 09/05/2014 05/19/2018 BENIGN NEOPLASM LG BOWEL - [place] 05/12/1998 07/08/2018 Overview: Colonoscopy 09/24/05 [facility]--hyperplastic polyp, repeat 5 years 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 07/20/2013 Polyp of nasal cavity 05/25/19972018 documented as of this encounter (statuses as of 05/28/2023) Immunizations Name Administration Dates Next Due COVID-19 mRNA, LNP-s, No Pre serve, 2-Dose Series ([facility]) 06/17/2020,04/26/2020 Pneumococcal Conjugate Vacc, 13 Valent (Prevnar) 07/22/2012 Pneumococcal Polysaccharide PPV23 (Pneumovax) Season Influenza, Quad, PF, Adjuvanted, 65+ Yrs, IM (FLUAD) 01/21/2020 Seasonal Influenza Virus Vac cine, Unspecified Formulation 01/19/2018 Seasonal Influenza, Quadrivalent, No Preserve, I M 01/25/2016,02/17/2015 Seasonal Influenza, Split, IIV3, With Preserve, Inj 01/19/2018,02/15/2014 Seasonal Influenza, Trivalent, Adjuvanted, 65+ y rs 01/21/2020,01/29/2019 Seasonal Influenza, Trivalen t, High Dose, No Preserve, IM 01/31/2017 TDAP (age 10 and older)(Boostrix) 12/02/2013 Varicella Zoster Vaccine (Adult) 04/04/2012 Zoster Vaccine Recombinant (Shingrix) 11/04/2018 ,08/12/2018 documented as of this encounter Social History Tobacco Use Types Packs/Day Years Used Date Smoking Tobacco: Some Days Cigarettes 0.1 7 Smokeless Tobacco: Never Alcohol Use Standard Drinks/Week Comments No 0 (1 standard drink = 0.6 oz pur e alcohol) PHQ-2 Answer Date Recorded PHQ-2 Score 0 11/17/2019 Hunger Vital Sign Answer Date Recorded Worried About Running Out of Food in the Last Ye ar Never true 11/26/2018 Ran Out of Food in the Last Year Never true 11/26/2018 Sex and Gender Information Value Date Recorded Sex Assigned at Not on file Gender Identity Not on file Sexual Orientation Not on file Job Start Date Occupation Industry Not on file Not on file Not on file documented as of this encounter Miscellaneous Notes * Telephone Encounter - Timo Reyes MD - 05/28/2023 8:41 AM ESTSigned Prescriptions: Disp Refills hydrALAZINE HCl 10 MG Oral Tablet (Apresol*420 Ta*0 Sig: take 2 tablets by mouth every morning and BEFORE BEDTIME MAY TAKE AN EXTRA 20MG FOR SBP >170 Authorizing Provider: TIMO REYES amLODIPine Besylate 5 MG Oral Tablet (Norv*180 Ta*0 Sig: take 2 tablets by mouth once daily Authorizing Provider: TIMO REYES * Telephone Encounter - Britni Lagunas LPN - 05/27/2023 4:05 PM ESTPending Prescriptions: Disp Refills hydrALAZINE HCl 10 MG Oral Tablet (Apresol*420 Ta*0 Sig: take 2 tablets by mouth every morning and BEFORE BEDTIME MAY TAKE AN EXTRA 20MG FOR SBP >170 amLODIPine Besylate 5 MG Oral Tablet (Norv*180 Ta*0 Sig: take 2 tablets by mouth once daily * Telephone Encounter - Britni Lagunas LPN - 05/27/2023 4:02 PM EST Message sent to provider for approval Last OV 01/22/24 Next OV No future apt on wait list * Telephone Encounter - Nydia Lira, surgery attendant - 05/27/2023 2:56 PM EST Did you pend patient's preferred pharmacy and medication before forwarding?yes [facility]acy: [id number] Pending Prescriptions: Disp Refills hydrALAZINE HCl 10 MG Oral Tablet (Apreso*420 Ta*0 Sig: take 2 tablets by mouth every morning and BEFORE BEDTIME MAY TAKE AN EXTRA 20MG FOR SBP >170 amLODIPine Besylate 5 MG Oral Tablet (Nor*180 Ta*0 Sig: take 2 tablets by mouth once daily Last Visit: 11/17/2019 (in office), Visit date not found (telemedicine) Next Visit: Visit date not found If no future appointments scheduled, and last appointment is greater than a year ago, please schedule patient for a follow-up appointment Last date the medication was ordered: 08/09/2022 Is this request for a controlled substance?No Urine Drug Screen:No results found for this or any previous visit. Patient Phone Numbers Labs: Lab Results Component Value Date/Time CREAT 2.5 (H) 09/20/2021 11:25 AM CREAT 2.6 (H) 01/21/2020 02:48 PM CREAT 0.7 07/16/1996 09:45 AM CREAT 0.7 07/06/1996 07:00 AM POTASSIUM 5.2 (H) 09/20/2021 11:25 AM POTASSIUM 4.8 01/21/2020 02:48 PM POTASSIUM 4.2 06/28/1996 08:10 AM TSH 2.78 02/02/2019 10:57 AM LDLCALC 176 (HH) 10/14/2002 09:54 AM ALT 9 (L) 09/20/2021 11:25 AM ALT 12 03/15/2015 02:31 PM ALT 13 06/28/1996 08:10 AM HGBA1C 5.7 02/02/2018 05:16 AM documented in this encounter Plan of Treatment Scheduled Procedures Name Priority Associated Diagnoses Date/Ti me COLONOSCOPY FLEXIBLE PROXIMAL DIAGNOSTIC Recall History of colon polyps Health Maintenance Due Date Last Done Comments Depression Screening 11/16/2020 11/17/2019 COVID-19 Vaccine (2022-05 4 season) 2022 02/02/2021, 06/17/2020, 05/27/2020, Additional history exists Influenza Vaccine (FLU shot) (#1) 2022 01/21/2020, 01/21/2020, 01/29/2019, Additional history exists Zoster Vaccines Completed 11/04/2018, 07/21, 04/04/2012 documented as of this encounter Medical Devices Not on filedocumented as of this encounter Visit Diagnoses Diagnosis CKD (chronic kidney disease), stage V (HCC) Chronic kidney disease, Stage V Hypertension with goal of symptom management only Unspecified essential hypertension documented in this encounter Advance Directives Documents on File Type Date Recorded Patient 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
--- OUTSIDE RECORDS SUMMARY | 2023-09-12 02:44 | External Medical Summary | Summary of Care ---
Author Name Unknown Organization [facility] Address [address] [place] [address] Phone [phone] Care Team Providers Care Stave Log Ripsaw Operator Name Role Phone Fátima Escalante DO Primary Care Provider [phone] Encounter Details Date Type Department Care Team (Late st Contact Info) Description 06/06/2023 Orders Only Laboratory, [facility] [address] [place] [id number] Levi Santoro PA-C [address] [address] Thyrotoxicosis without thyroid storm, unspecified thyrotoxicosis type* Allergies Active Allergy Reactions Criticality Noted Date Comments Clindamycin Diarrhea 11/20/2010 Ergotamine Neuro complications (Please comment) 11/20/2010 Increased headache Other reaction(s): Other See Comments Increased headache Intense head pain Iodine 01/01/2017 On methimazole, pt stated IV contrast dye, not Iodine itself Molds & Smuts Neuro complications (Please comment) 11/08/2015 Migraines documented as of this encounter (statuses as of 06/06/2023) Medications Medication Sig Dispensed Refills Start Date End Date Status FLONASE 50 MCG/ACT NA SUSPIndications:Polyp of nasal cavity two sprays each nostril once daily 1 BOTTLE 5 07/26/2003 Active LUNESTA 3 MG PO TABS 1 pill at bedtime as needed 0 Active ALPRAZolam (XANAX) 0.5 MG Tablet Take 0.5 mg by mouth 2 times a day as needed. 0 12/30/2015 Active Famotidine-Ca Carb-Mag Hydrox (PEPCID COMPLETE) 10-800-165 MG CHEW Take by mouth as needed. 0 Active butalbital-acetaminop hen-caffeine 50-325-40 mg per tab (FIORICET) 50-325-40 MG Take 1 Tab by mouth. 0 11/20/2017 Active omeprazole (PRILOSEC) 20 MG CPDR Take 20 mg by mouth. 0 Active ondansetron (ZOFRAN) 8 MG Tablet Take 1 Tab by mouth every 6 hours as needed for Nausea. 90 Tab 1 05/19/2018 Active acetaminophen-codeine 300-30 mg per tab (TYLENOL WITH CODEINE #3) 300-30 MG per TabletIndications:Oth er headache syndrome Take 1 Tab by mouth every 4 hours as needed for Pain. 30 Tab 0 07/09/2018 Active traMADol (ULTRAM) 50 MG TabletIndications:Juan Jose white with aura and without status migrainosus, not [...] Active hydrALAZINE HCl 10 MG Oral Tablet (Apresoline)Indicatio ns:CKD (chronic kidney disease), stage V (HCC),Hypertension with goal of symptom management only take 2 tablets by mouth every morning and BEFORE BEDTIME MAY TAKE AN EXTRA 20MG FOR SBP >170 420 Tablet 0 05/28/2023 Active amLODIPine Besylate 5 MG Oral Tablet (Norvasc) take 2 tablets by mouth once daily 180 Tablet 0 05/28/2023 Active documented as of this encounter (statuses as of 06/06/2023) Active Problems Problem Noted Date Diagnosed Date [...] as of this encounter (statuses as of 06/06/2023) Resolved Problems Problem Noted Date Diagnosed Date Resolved Date Hospice care patient 07/03/2018 019 Chest wall pain 11/13/2017 05/19/2018 Abnormal thyroid function test 05/08/2015 07/10/2018 AAA (abdominal aortic aneurysm) 09/05/2014 05/19/2018 BENIGN NEOPLASM LG BOWEL - [place] 05/12/1998 07/08/2018 Overview: Colonoscopy 09/24/05 [facility]--hyperplastic polyp, repeat 5 years 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 07/20/2013 Polyp of nasal cavity 05/25/19972018 documented as of this encounter (statuses as of 06/06/2023) Immunizations Name Administration Dates Next Due COVID-19 mRNA, LNP-s, No Pre serve, 2-Dose Series (BOKU) 06/17/2020,04/26/2020 Pneumococcal Conjugate Vacc, 13 Valent (Prevnar) [...] on file documented as of this encounter Plan of Treatment Upcoming Encounters Date Type Department Care Team (Late st Contact Info) Description 04/27/2024 11:40 AM EST Office Visit [facility] [address] [place] [address] Kathleen Saez MD [address] [place] [address] Scheduled Orders Name Type Priority Associated Diagnoses Orde r Schedule TSH Lab Routine Thyrotoxicosis without thyroid storm, unspecified thyrotoxicosis type Expected: 06/06/2023, Expires: 06/06/2024 T3, FREE Lab Routine Thyrotoxicosis without thyroid storm, unspecified thyrotoxicosis type Expected: 06/06/2023, Expires: 06/06/2024 T4, FREE Lab Routine Thyrotoxicosis without thyroid storm, unspecified thyrotoxicosis type Expected: 06/06/2023, Expires: 06/06/2024 Scheduled Procedures Name Priority Associated Diagnoses Date/Ti me COLONOSCOPY FLEXIBLE PROXIMAL DIAGNOSTIC Recall History of colon polyps Health Maintenance Due Date Last Done Comments Depression Screening 11/16/2020 11/17/2019 COVID-19 Vaccine (5 - 2022-2 4 season) 2022 02/02/2021, 06/17/2020, 05/27/2020, Additional history exists Influenza Vaccine (FLU shot) (#1) 2022 01/21/2020, 01/21/2020, 01/29/2019, Additional history exists Zoster Vaccines Completed 11/04/2018, 07/21, 04/04/2012 documented as of this encounter Medical Devices Not on filedocumented as of this encounter Visit Diagnoses Diagnosis Thyrotoxicosis without thyroid storm, unspecified thyrotoxicosis type- Primary documented in this encounter Advance Directives Documents on File Type Date Recorded 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
--- OUTSIDE RECORDS SUMMARY | 2023-09-12 02:44 | External Medical Summary | Summary of Care ---
Author Name Unknown Organization [facility] Address [address] [place] [address] Phone [phone] Care Team Providers Care Boiler Shop Mechanic Name Role Phone Fátima Escalante DO Primary Care Provider [phone] Reason for Visit * Reason Onset Date Comments Medication Management 05/29/2023 Medication Question 05/29/2023 Encounter Details Date Type Department Care Team (Late st Contact Info) Description 05/29/2023 Telephone Nephrology, [facility] [address] [place] [address] Kathleen Saez MD [address] [place] [address] Medication Management; Medication Question Allergies Active Allergy Reactions Criticality Noted Date Comments Clindamycin Diarrhea 11/20/2010 Ergotamine Neuro complications (Please comment) 11/20/2010 Increased headache Other reaction(s): Other See Comments Increased headache Intense head pain Iodine 01/01/2017 On methimazole, pt stated IV contrast dye, not Iodine itself Molds & Smuts Neuro complications (Please comment) 11/08/2015 Migraines documented as of this encounter (statuses as of 05/29/2023) Medications Medication Sig Dispensed Refills Start Date [...] as of this encounter (statuses as of 05/29/2023) Active Problems Problem Noted Date Diagnosed Date [...] as of this encounter (statuses as of 05/29/2023) Resolved Problems Problem Noted Date Diagnosed Date Resolved Date Hospice care patient 07/03/2018 019 Chest wall pain 11/13/2017 05/19/2018 Abnormal thyroid function test 05/08/2015 07/10/2018 AAA (abdominal aortic aneurysm) 09/05/2014 05/19/2018 BENIGN NEOPLASM LG BOWEL - [place] 05/12/1998 07/08/2018 Overview: Colonoscopy 09/24/05 [facility]--hyperplastic polyp, repeat 5 years 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 07/20/2013 Polyp of nasal cavity 05/25/19972018 documented as of this encounter (statuses as of 05/29/2023) Immunizations Name Administration Dates Next Due COVID-19 mRNA, LNP-s, No Pre serve, 2-Dose Series (WedPics (deja mi)) 06/17/2020,04/26/2020 Pneumococcal Conjugate Vacc, 13 Valent (Prevnar) [...] encounter Miscellaneous Notes * Telephone Encounter - Britni Lagunas LPN - 05/29/2023 12:07 PM EST Pt aware looks like this was signed off Pt will check with Pharmacy If not there will call back to have refill completed documented in this encounter Plan of Treatment Upcoming Encounters Date Type Department Care Team (Late st Contact Info) Description 04/27/2024 11:40 AM EST Office Visit Nephrology, [facility] [address] [place] [address] Kathleen Saez MD [address] [place] [address] Scheduled Procedures Name Priority Associated Diagnoses Date/Ti me COLONOSCOPY FLEXIBLE PROXIMAL DIAGNOSTIC Recall History of colon polyps Health Maintenance Due Date Last Done Comments Depression Screening 11/16/2020 11/17/2019 COVID-19 Vaccine (2022-2 4 season) 2022 02/02/2021, 06/17/2020, 05/27/2020, Additional history exists Influenza Vaccine (FLU shot) (#1) 2022 01/21/2020, 01/21/2020, 01/29/2019, Additional history exists Zoster Vaccines Completed 11/04/2018, 07/21, 04/04/2012 documented as of this encounter Medical Devices Not on filedocumented as of this encounter Advance Directives Documents on File Type Date Recorded 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
[2023-09-12 02:49] LABS: Basophils # (auto) 0.01 K/uL (0.00-0.20); Basophils % (auto) 0.1 %; Eosinophils # (auto) 0.04 K/uL (0.00-0.50); Eosinophils % (auto) 0.4 %; Hematocrit (blood only) 35.2 % (37.0-47.0); Hemoglobin 11.6 g/dl (12.0-16.0); Immature Granulocytes # (auto) 0.02 K/uL (0.01-0.20); Immature Granulocytes % (auto) 0.2 %; Lymphocytes # (auto) 1.83 K/uL (1.20-3.40); Lymphocytes % (auto) 19.4 %; Mean Corpuscular Hemoglobin 29.9 pg (25.0-34.0); Mean Corpuscular Volume 90.7 fL (80.0-100.0); Monocytes # (auto) 0.76 K/uL (0.11-0.59); Monocytes % (auto) 8.1 %; Neutrophils # (auto) 6.75 K/uL (1.40-6.50); Neutrophils % (auto) 71.8 %; Platelet Count 261 K/uL (130-400); RDW Coefficient of Variation 14.9 % (11.5-14.5); RDW Standard Deviation 46.5 fL (36.4-46.3); Red Blood Count 3.88 M/uL (4.20-5.40); White Blood Count 9.41 K/ul (4.8-10.8)
[2023-09-12 03:04] LABS: BUN Creatinine Ratio 18.4 (10-20); Calcium 9.2 mg/dl (8.6-10.3); Chol HDL Ratio 2.9 (0-5); Creatinine Clr Calc Pharmacy 12.3 ml/min; Est GFR (African American) 23.4 ml/min; Est GFR (Non-African American) 20.2 ml/min; Magnesium 1.8 mg/dl (1.7-2.4); Phosphorus 4.5 mg/dl (2.5-4.9); Potassium 4.7 mmol/L (3.5-5.1)
[2023-09-12 07:19] LABS: Estimated Average Glucose 123 mg/dl; Hemoglobin A1C 5.9 % (4.5-5.6)
--- NOTE | 2023-09-12 08:35 | Cardiology Progress Note ---
Date of Service September 12, 2023 Assessment & Plan (1) Hypertensive emergency without congestive heart failure: Plan Plans: * 78 yo woman * presenting with severe hypertension * Challenges with independent living and potentially with memory/depression * Restarted oral antihypertensives * Continue Amlodipine 10 mg po per day * Consider increasing Hydralazine to 25 mg po BID * No challenges with heart block overnight - * Restart Toprol-XL at 12.5 mg po per day * Prefer to avoid topical nitrates due to headaches. * Brain MRI - no evidence of CVA * Echocardiogram - reviewed - preserved LVEF - no valvular abnormalities * + Atherosclerosis, + smoking hx * LDL 104 * Start Crestor 10 mg po per day * TSH is low - hyperthyroidism may be playing a role. Consider full thyroid panel +/- endocrine evaluation * 51 min spent addressing challenges, educating, connecting with patients and her sister, advancing daily plan of care * Follow up with [facility]iology Admission and Anticipated Discharge Date Admission Date: September 11, 2023 Subjective ID: 78 yo woman presenting with uncontrolled HTN CKD Potential challenges with memory Potential challenges with independent living Events overnight: None reported Subjective: * No specific complaints * + Dry skin Review of Systems Review of Systems: All systems reviewed & are unremarkable except as noted in HPI & below Physical Exam Physical Exam: Thin woman in NAD JVP at base of Neck Breath sounds distant S1S2- soft 2/6 systolic murmur + BS - scaphoid No C/C/E Warm and perfusing + dry skin Results & Data Vital Signs (Past 12 Hours) Vital Signs Temp Pulse Pulse Resp BP Pulse Ox O2 Del Method 09/12/23 07:25 36.6 C 96 H 20 132/63 95 Room Air 09/12/23 02:25 36.6 C 98 H 18 125/70 94 Room Air 09/11/23 22:10 36.8 C 100 H 18 155/78 H 97 Room Air 09/11/23 22:01 98 H Laboratory Results Cardiac Enzymes 09/11/23 09/11/23 09/11/23 Range/Units 04:09 14:08 20:45 AST 20 (13-39) U/L Troponin I High Sens 10.7 40.9 H D 46.0 H (0-14) pg/ml 09/12/23 Range/Units 02:24 AST (13-39) U/L Troponin I High Sens 46.0 H (0-14) pg/ml Coagulation 09/11/23 Range/Units 04:09 PT 10.0 (9.0-12.0) Seconds APTT 25 (21-31) Seconds Lipids 09/12/23 Range/Units 02:24 Triglycerides 190 H (0-150) mg/dl Cholesterol 218 H (0-200) mg/dl HDL Cholesterol 76 mg/dl Cholesterol/HDL Ratio 2.9 (0-5) CBC 09/11/23 09/12/23 Range/Units 04:09 02:24 WBC 8.45 9.41 (4.8-10.8) K/ul RBC 4.26 3.88 L (4.20-5.40) M/uL Hgb 12.9 11.6 L (12.0-16.0) g/dl Hct 40.2 35.2 L (37.0-47.0) % Plt Count 268 261 (130-400) K/uL Neut # (Auto) 4.04 6.75 H (1.40-6.50) K/uL Lymph # (Auto) 3.46 H 1.83 (1.20-3.40) K/uL [place] # (Auto) 0.51 0.76 H (0.11-0.59) K/uL Eos # (Auto) 0.38 0.04 (0.00-0.50) K/uL Baso # (Auto) 0.03 0.01 (0.00-0.20) K/uL Comprehensive Metabolic Panel 09/11/23 09/12/23 Range/Units 04:09 02:24 Sodium 137 137 (136-145) mmol/L Potassium 4.4 4.7 (3.5-5.1) mmol/L Chloride 106 103 (98-107) mmol/L Carbon Dioxide 23 25 (21-32) mmol/L BUN 45 H 41 H (6-23) mg/dl Creatinine 2.09 H 2.23 H (0.6-1.2) mg/dl Glucose 130 H 101 H (70-99(Fasting)) mg/dl Calcium 9.1 9.2 (8.6-10.3) mg/dl AST 20 (13-39) U/L ALT 20 (7-52) U/L Alkaline Phosphatase 75 (34-104) U/L Total Protein 6.8 (6.0-8.3) gm/dl Albumin 3.5 (3.4-5.0) gm/dl Intake and Output 09/11/23 09/12/23 09/12/23 22:59 06:59 14:59 Output Total Balance -1203 Output: # Bowel Movements Other: Other Intake Source npo # Unmeasured Voids 1 Weight 38.8 kg 38.7 kg Weight Measurement Method Built in [facility] Diagnostic Findings CXR: 09/11/2023 IMPRESSION: No acute abnormalities and in particular no radiographic evidence of pneumonia. Carotid Duplex: 09/11/2023 IMPRESSION: 1. Mild atherosclerosis without hemodynamically significant stenosis. 2. Normal antegrade vertebral flow bilaterally. Brain MRI: 09/11/2023 IMPRESSION: No acute intracranial abnormality. ECHOcardiogram: 09/11/2023 LVEF 65-70% Mild Concentric LVH No valvular pathology Medications Administered Current Inpatient Medications Acetaminophen (Acetaminophen 325 Mg Tab) 650 mg PO Q4H PRN PRN Reason: Pain or Fever Stop: 10/11/23 07:24 Last Admin: 09/11/23 21:18 Dose: 650 mg Amlodipine Besylate (Amlodipine Besylate 5 Mg Tab) 10 mg PO QAM ZAK Stop: 10/11/23 08:59 Last Admin: 09/11/23 08:45 Dose: 10 mg Heparin Sodium (Porcine) (Heparin Sod 5,000 Unit/0.5 Ml Vial) 5,000 units SQ Q12 ZAK Stop: 10/11/23 08:59 Last Admin: 09/11/23 21:19 Dose: 5,000 units Hydralazine HCl (Hydralazine 10 Mg Tab) 10 mg PO BID ZAK Stop: 10/11/23 08:59 Last Admin: 09/11/23 21:19 Dose: 10 mg Acetaminophen 550 mg/ EMPTY (BAG) 55 mls @ 400 mls/hr IV Q6H PRN; Protocol PRN Reason: Pain/Fever Stop: 10/11/23 13:14 Last Infusion: 09/11/23 13:50 Dose: Infused Labetalol HCl (Labetalol Hcl Iv 5 Mg/Ml 20ml) 10 mg IV Q6H PRN PRN Reason: Hypertension Stop: 10/11/23 07:24 Last Admin: 09/11/23 18:51 Dose: 10 mg Methimazole (Methimazole 5 Mg Tablet) 5 mg PO DAILY [facility] Stop: 10/11/23 08:59 Last Admin: 09/11/23 08:45 Dose: 5 mg Metoprolol Succinate (Metoprolol Succ 25mg Ext Rel Tab) 25 mg PO QAM ZAK Stop: 10/11/23 08:59 Last Admin: 09/11/23 08:45 Dose: 25 mg Nitroglycerin (Nitroglycerin Sl 0.4 Mg/Tab Tab) 0.4 mg SL Q5M PRN PRN Reason: Chest Pain Stop: 10/11/23 07:24 Ondansetron HCl (Ondansetron Inj 2 Mg/Ml 2 Ml Vial) 4 mg IV Q6H PRN PRN Reason: Nausea Stop: 10/11/23 07:24 Last Admin: 09/11/23 15:46 Dose: 4 mg Pantoprazole Sodium (Pantoprazole 40 Mg Tab) 40 mg PO DAILY [facility] Stop: 10/11/23 08:59 Last Admin: 09/11/23 08:45 Dose: 40 mg Polyethylene Glycol (Polyethylene (Miralax) 17 Gm Pack) 17 gm PO DAILY PRN PRN Reason: Constipation Stop: 10/11/23 07:24 Tramadol HCl (Tramadol Hcl 50 Mg Tablet) 50 mg PO Q6H PRN PRN Reason: Mod-Sev Pain (Scale 4-10) Stop: 10/11/23 07:24 Last Admin: 09/11/23 15:52 Dose: 50 mg
--- NOTE | 2023-09-12 15:16 | Hospitalist Progress Note ---
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 seems had headaches on dialysis and withdrew from dialysis from April 2018 as per records, history of GERD who lives alone and has a sister who lives in [place] called EMS because of severe headaches and for EMS her systolic blood pressure was in 240s and patient seemed confused.Initially there was plan for call stroke alert because of confusion and high blood pressure but because not not knowing her well-known time stroke alert was not called. CT head was okay. CTA head and neck not done because of renal dysfunction. Received few doses of IV labetalol. Patient can tell her name. Could tell her date of . Knows that she is in the hospit al. Could not tell current dates. Patient does not remember calling EMS and does not know why she is in the hospital. Says her headaches are better now. Denies dizziness. Denies blurred visions. Denies runny nose or sore throat or cough. Denies any difficulty swallowing. Denies fevers. Denies chest pain or shortness of breath. Denies nausea. Denies abdominal pain. States having normal bowel bladder movements. States she ambulates okay. Does not think she is taking any medications at home. She does not know that she is on medications. Tried to call sister but not able to reach. Altered mental status Patient called EMS for severe headaches but currently patient does not remember that she called EMS and does not know why she is in the hospital Multifactorial etiology including hypertensive encephalopathy, acute on chronic renal impairment, acute neurologic events, infection CT of the head and MRI are unremarkable Appreciate neurology input and recommendation-change in mental status is due to hypertensive encephalopathy Resolved mental status change and it is back to her baseline Speech evaluation appreciated Evaluation and PT OT. Hypertensive urgency/emergency With hypertensive encephalopathy Blood pressures was noted as high as 218/118 with symptoms of headache, nausea vomiting Received intravenous labetalol Has been on amlodipine and hydralazine BP seems to be reasonably controlled Echo of the heart showed-LV systolic function is normal, EF 65 to 70%, mild concentric LVH, grade 1 diastolic dysfunction and no significant valvular pathology Lipid profile noted-triglyceride 119, cholesterol 218, LDL 108, VLDL 38, HDL cholesterol 76 and hemoglobin A1c is 5.9 Appreciate cardiology input and recommendation CKD stage V with history of right kidney donation Baseline creatinine around 2.5 Presented with creatinine of 2 Appreciate nephrology input and recommendation Creatinine remains elevated at 2.23 She has been making out adequate urine Severe protein calorie malnutrition She definitely has poor nutrition with BMI of only 13.0 Nutritional assessment Hyperthyroidism On methimazole as per epic DHS -low at 0.108 and free T4 is normal at 0.69 We will continue the current dose of methimazole GERD PPI DVT prophylaxis heparin subcu disposition telemetry CODE STATUS will keep full code for now until further discussion with the patient needs to verify medications with the patient When she is more stable Admission and Anticipated Discharge Date Admission Date: September 11, 2023 Subjective 09/12/2039 The patient was seen and examined in telemetry unit She has been feeling a lot better today Denies any significant symptoms and wants to go home Complains to to be hungry and wanted to have food right away Review of Systems Review of Systems: All systems reviewed and are unremarkable except as noted below Physical Exam Physical Exam: Lying in bed without any acute distress Constitutional: + ill appearing and + thin Eyes: PERRL, conjunctivae normal, anicteric sclerae ENMT: external ear and nose normal, oropharynx normal Neck: trachea midline, no thyromegaly Respiratory: no respiratory distress Auscultation: lungs clear to auscultation bilaterally Cardiovascular: Rate/Rhythm: regular rate and regular rhythm; not tachycardic Heart Sounds: normal S1 and normal S2; no murmur Extremities: no edema Gastrointestinal (Abdomen): Inspection/Auscultation: normal bowel sounds; abdomen not distended Percussion/Palpation: abdomen soft; abdomen nontender Musculoskeletal: No acute arthritis involving any of the joints Neurologic: normal touch/pain/proprioception and moves all extremities; no focal motor deficits Psychiatric: A+Ox3, euthymic affect Lymphatic: no cervical or axillary lymphadenopathy Results & Data Results & Data Vital Signs (Past 12 Hours) Vital Signs Temp Pulse Resp BP Pulse Ox O2 Del Method 09/12/23 11:21 37.1 C 97 H 24 110/63 92 Room Air 09/12/23 07:25 36.6 C 96 H 20 132/63 95 Room Air Laboratory Results Short CBC 09/12/23 Range/Units 02:24 WBC 9.41 (4.8-10.8) K/ul Hgb 11.6 L (12.0-16.0) g/dl Hct 35.2 L (37.0-47.0) % Plt Count 261 (130-400) K/uL BMP 09/12/23 02:24 Sodium 137 Potassium 4.7 Chloride 103 Carbon Dioxide 25 BUN 41 H Creatinine 2.23 H Glucose 101 H Calcium 9.2 Medications Administered Current Inpatient Medications Acetaminophen (Acetaminophen 325 Mg Tab) 650 mg PO Q4H PRN PRN Reason: Pain or Fever Stop: 10/11/23 07:24 Last Admin: 09/12/23 14:41 Dose: 650 mg Amlodipine Besylate (Amlodipine Besylate 5 Mg Tab) 10 mg PO QAM ZAK Stop: 10/11/23 08:59 Last Admin: 09/12/23 10:04 Dose: 10 mg Heparin Sodium (Porcine) (Heparin Sod 5,000 Unit/0.5 Ml Vial) 5,000 units SQ Q12 ZAK Stop: 10/11/23 08:59 Last Admin: 09/12/23 10:04 Dose: 5,000 units Hydralazine HCl (Hydralazine 10 Mg Tab) 10 mg PO BID ZAK Stop: 10/11/23 08:59 Last Admin: 09/12/23 10:03 Dose: 10 mg Acetaminophen 550 mg/ EMPTY (BAG) 55 mls @ 400 mls/hr IV Q6H PRN; Protocol PRN Reason: Pain/Fever Stop: 10/11/23 13:14 Last Infusion: 09/11/23 13:50 Dose: Infused Labetalol HCl (Labetalol Hcl Iv 5 Mg/Ml 20ml) 10 mg IV Q6H PRN PRN Reason: Hypertension Stop: 10/11/23 07:24 Last Admin: 09/11/23 18:51 Dose: 10 mg Methimazole (Methimazole 5 Mg Tablet) 5 mg PO DAILY ZAK Stop: 10/11/23 08:59 Last Admin: 09/12/23 10:03 Dose: 5 mg Metoprolol Succinate (Metoprolol Succ 25mg Ext Rel Tab) 25 mg PO QAM ZAK Stop: 10/11/23 08:59 Last Admin: 09/11/23 08:45 Dose: 25 mg Nitroglycerin (Nitroglycerin Sl 0.4 Mg/Tab Tab) 0.4 mg SL Q5M PRN PRN Reason: Chest Pain Stop: 10/11/23 07:24 Ondansetron HCl (Ondansetron Inj 2 Mg/Ml 2 Ml Vial) 4 mg IV Q6H PRN PRN Reason: Nausea Stop: 10/11/23 07:24 Last Admin: 09/11/23 15:46 Dose: 4 mg Pantoprazole Sodium (Pantoprazole 40 Mg Tab) 40 mg PO DAILY [facility] Stop: 10/11/23 08:59 Last Admin: 09/12/23 10:04 Dose: 40 mg Polyethylene Glycol (Polyethylene (Miralax) 17 Gm Pack) 17 gm PO DAILY PRN PRN Reason: Constipation Stop: 10/11/23 07:24 Tramadol HCl (Tramadol Hcl 50 Mg Tablet) 50 mg PO Q6H PRN PRN Reason: Mod-Sev Pain (Scale 4-10) Stop: 10/11/23 07:24 Last Admin: 09/11/23 15:52 Dose: 50 mg
--- NOTE | 2023-09-12 16:35 | Nephrology Progress Note ---
Date of Service September 12, 2023 Assessment & Plan (1) Hypertensive emergency without congestive heart failure: Plan: given her encephalopathy, she presented with hypertensive emergency, though I do not believe that all of her confusion was acute. Renal function is at/or better than baseline. troponin is wnl. given rapid/easy response to IV medications, concern she is not taking meds as OP. no cerebral edema on head CT so unlikely emesis is from increased ICP. no stroke per neuro based on head CT and MRI other eval. presenting BP 200s to 2 teens over 100s to 110s, readily responsive to hydralazine, labetalol intermittent. >>Recommend Target blood pressure 150-160s systolic; she has been so far appropriately lowered w/in hours to that target. Goal is to maintain it now for at least another day and it would be not unreasonable to discharge her with blood pressures in this range or 130s to 140s if possible. > continue amlodipine >>>> Continue to current dose hydralazine and started low-dose metoprolol >continue methimazole >if no MRI to eval for aortic dissection, recommend u/s to evaluate AAA if present Will sign off Needs hospital discharge office visit with me about 2 to 4 weeks after hospital or rehab discharge whichever is later; should come to that visit with basic metabolic panel, CBC, PTH, 25-hydroxy vitamin D, urinalysis microscopy, spot protein to creatinine ratio, albumin to creatinine ratio all to be ordered by renal nurse and done within 72 hours of appointment Continue NSAID avoidance at hospital discharge Target blood pressures for discharge as above -if d/c home w/o services recommend neuropsych eval for baseline to consider dx of dementia >>note that per case management patient is declining any discharge needs; this patient came in with over a year of not taking her medications and has significant gaps in her memory including hours and days before coming into the hospital. She does not recall contacting the ambulance to be brought into the hospital. Concern for emerging dementia in addition to hypertensive encephalopathy recommend reevaluation of her discharge needs and ensuring that her sister is involved in that discussion Appreciate consultation we will follow with you (2) CKD (chronic kidney disease) stage 4, GFR 15-29 ml/min: Plan: prior renal function had been in mid to high 2's at baseline; this in a cachectic patient with solitary kidney. her weight is at least stable for past few years approximately. she has repeatedly stated in the past she would not resume dialysis should the need arise; not in a condition to make/review decisions like that currently in my opinion some improvement in renal function w/ sustained lower body mass. her renal function is likely worse than eGFR suggests -daily bmp -no need for renal diet at this time (3) Failure to thrive in adult: Plan: concern that she's not been filling medications or attending physician appts x years; concern she is not eating/feeding herself adequately. last rxs filled were 07/2022 for fioricet and hydralazine (4) Goals of care, counseling/discussion: Plan: DNR/DNI after goals of care discussion w/ sister. Plan complex medical decision making in pt at high risk for morbidity/ mortality and extra/unnecessary medical care. Admission and Anticipated Discharge Date Admission Date: September 11, 2023 Subjective Headache still present but markedly improved. She ate about a third of her supper seen on afternoon rounds. Denies shortness of breath or cough. No uncontrolled pain. Still several gaps in memory. Today is her 78th birthday Review of Systems 2 Review of Systems: All systems reviewed & are unremarkable except as noted in Subjective Physical Exam 2 Constitutional: well developed, + acute distress (mild distress from TREVIZO), + cachectic and cooperative Eyes: EOM intact bilaterally ENMT: Ears: no external ear abnormality Nose: no external nose abnormality Mouth: + dry oral mucous membranes Neck: no nuchal rigidity Respiratory: normal respiratory effort and + cough (frequent thick non productive cough especially with deep inspiration) Auscultation: + diminished lung sounds Cardiovascular: RRR, no murmur, no edema Gastrointestinal (Abdomen): Inspection/Auscultation: normal bowel sounds and + scaphoid; abdomen not distended Percussion/Palpation: abdomen soft; abdomen nontender Musculoskeletal: Extremities: strength 5/5 throughout Skin: no rashes, warm and dry Psychiatric: Orientation: alert, oriented to person, oriented to place and cooperative; + not oriented to time Speech: normal rate/rhythm/volume of speech Insight: + limited insight Results & Data Vital Signs (Past 12 Hours) Vital Signs Temp Pulse Resp BP Pulse Ox O2 Del Method 09/12/23 15:33 36.6 C 98 H 20 154/85 H 90 Room Air 05/24/24 11:21 37.1 C 97 H 24 110/63 92 Room Air 09/12/23 07:25 36.6 C 96 H 20 132/63 95 Room Air Laboratory Results 09/12/23 02:24 09/12/23 02:24
[2023-09-12] MEDS: METOPROLOL TARTRATE 25 MG TAB PO SCH (21:28)
[2023-09-13 06:15] LABS: Basophils # (auto) 0.03 K/uL (0.00-0.20); Basophils % (auto) 0.4 %; Eosinophils # (auto) 0.26 K/uL (0.00-0.50); Eosinophils % (auto) 3.8 %; Hematocrit (blood only) 34.5 % (37.0-47.0); Hemoglobin 11.2 g/dl (12.0-16.0); Immature Granulocytes # (auto) 0.02 K/uL (0.01-0.20); Immature Granulocytes % (auto) 0.3 %; Lymphocytes # (auto) 2.26 K/uL (1.20-3.40); Lymphocytes % (auto) 33.3 %; Mean Corpuscular Hemoglobin 29.6 pg (25.0-34.0); Mean Corpuscular Hgb Conc 32.5 g/dL (32.0-36.0); Mean Corpuscular Volume 91.3 fL (80.0-100.0); Mean Platelet Volume 8.9 fL (9.4-12.4); Monocytes # (auto) 0.57 K/uL (0.11-0.59); Monocytes % (auto) 8.4 %; Neutrophils # (auto) 3.65 K/uL (1.40-6.50); Neutrophils % (auto) 53.8 %; Platelet Count 241 K/uL (130-400); RDW Standard Deviation 48.2 fL (36.4-46.3); Red Blood Count 3.78 M/uL (4.20-5.40); White Blood Count 6.79 K/ul (4.8-10.8)
[2023-09-13 06:32] LABS: BUN Creatinine Ratio 20.1 (10-20); Calcium 8.8 mg/dl (8.6-10.3); Creatinine Clr Calc Pharmacy 11.2 ml/min; Est GFR (Non-African American) 18.1 ml/min; Magnesium 1.8 mg/dl (1.7-2.4); Potassium 4.9 mmol/L (3.5-5.1)
--- NOTE | 2023-09-13 12:40 | Hospitalist Progress Note ---
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 seems had headaches on dialysis and withdrew from dialysis from April 2018 as per records, history of GERD who lives alone and has a sister who lives in [place] called EMS because of severe headaches and for EMS her systolic blood pressure was in 240s and patient seemed confused.Initially there was plan for call stroke alert because of confusion and high blood pressure but because not not knowing her well-known time stroke alert was not called. CT head was okay. CTA head and neck not done because of renal dysfunction. Received few doses of IV labetalol. Patient can tell her name. Could tell her date of . Knows that she is in the hospit al. Could not tell current dates. Patient does not remember calling EMS and does not know why she is in the hospital. Says her headaches are better now. Denies dizziness. Denies blurred visions. Denies runny nose or sore throat or cough. Denies any difficulty swallowing. Denies fevers. Denies chest pain or shortness of breath. Denies nausea. Denies abdominal pain. States having normal bowel bladder movements. States she ambulates okay. Does not think she is taking any medications at home. She does not know that she is on medications. Tried to call sister but not able to reach. Altered mental status Patient called EMS for severe headaches but currently patient does not remember that she called EMS and does not know why she is in the hospital Multifactorial etiology including hypertensive encephalopathy, acute on chronic renal impairment, acute neurologic events, infection CT of the head and MRI are unremarkable Appreciate neurology input and recommendation-change in mental status is due to hypertensive encephalopathy Resolved mental status change and it is back to her baseline Speech evaluation appreciated Evaluation and PT OT-. OT recommended 24-hour care and recommended rehab Has not had physical therapy evaluation yet Hypertensive urgency/emergency With hypertensive encephalopathy Blood pressures was noted as high as 218/118 with symptoms of headache, nausea vomiting Received intravenous labetalol Has been on amlodipine and hydralazine BP seems to be reasonably controlled Echo of the heart showed-LV systolic function is normal, EF 65 to 70%, mild concentric LVH, grade 1 diastolic dysfunction and no significant valvular pathology Lipid profile noted-triglyceride 119, cholesterol 218, LDL 108, VLDL 38, HDL cholesterol 76 and hemoglobin A1c is 5.9 Appreciate cardiology input and recommendation Blood pressure remains stable and on the lower side at 108/55 CKD stage V with history of right kidney donation Baseline creatinine around 2.5 Presented with creatinine of 2 Appreciate nephrology input and recommendation Creatinine remains elevated at 2.23 She has been making out adequate urine Creatinine remains stable at 2.44 Severe protein calorie malnutrition She definitely has poor nutrition with BMI of only 13.0 Nutritional assessment Hyperthyroidism On methimazole as per [facility] -low at 0.108 and free T4 is normal at 0.69 We will continue the current dose of methimazole GERD PPI DVT prophylaxis heparin subcu disposition telemetry CODE STATUS will keep full code for now until further discussion with the patient Needs to verify medications with the patient When she is more stable Admission and Anticipated Discharge Date Admission Date: September 11, 2023 Subjective 09/12/2023 The patient was seen and examined in telemetry unit She has been feeling a lot better today Denies any significant symptoms and wants to go home Complains to to be hungry and wanted to have food right away 09/13/2023 The patient was seen and examined in telemetry unit She has been feeling much better Tolerating diet and has been ambulating in the room and in the hallway without any difficulties She wants to go home Review of Systems Review of Systems: All systems reviewed and are unremarkable except as noted below Physical Exam Physical Exam: Lying in bed without any acute distress Constitutional: + thin; not ill appearing Eyes: PERRL, conjunctivae normal, anicteric sclerae ENMT: external ear and nose normal, oropharynx normal Neck: trachea midline, no thyromegaly Respiratory: no respiratory distress Auscultation: lungs clear to auscultation bilaterally Cardiovascular: Rate/Rhythm: regular rate and regular rhythm; not tachycardic Heart Sounds: normal S1 and normal S2; no murmur Extremities: no edema Gastrointestinal (Abdomen): Inspection/Auscultation: normal bowel sounds; abdomen not distended Percussion/Palpation: abdomen soft; abdomen nontender Musculoskeletal: No acute arthritis involving any of the joints Neurologic: normal touch/pain/proprioception and moves all extremities; no focal motor deficits Psychiatric: A+Ox3, euthymic affect Lymphatic: no cervical or axillary lymphadenopathy Results & Data Results & Data Vital Signs (Past 12 Hours) Vital Signs Temp Pulse Resp BP Pulse Ox O2 Del Method 09/13/23 12:17 36.4 C L 70 23 108/55 L 90 Room Air 09/13/23 08:21 36.7 C 80 21 119/60 91 Room Air 09/13/23 02:50 36.6 C 72 18 138/73 93 Room Air Laboratory Results Short CBC 09/13/23 Range/Units 05:56 WBC 6.79 (4.8-10.8) K/ul Hgb 11.2 L (12.0-16.0) g/dl Hct 34.5 L (37.0-47.0) % Plt Count 241 (130-400) K/uL BMP 09/13/23 05:56 Sodium 136 Potassium 4.9 Chloride 106 Carbon Dioxide 26 BUN 49 H Creatinine 2.44 H Glucose 95 Calcium 8.8 Medications Administered Current Inpatient Medications Acetaminophen (Acetaminophen 325 Mg Tab) 650 mg PO Q4H PRN PRN Reason: Pain or Fever Stop: 10/11/23 07:24 Last Admin: 09/13/23 08:36 Dose: 650 mg Amlodipine Besylate (Amlodipine Besylate 5 Mg Tab) 10 mg PO QAM ZAK Stop: 10/11/23 08:59 Last Admin: 09/13/23 08:37 Dose: 10 mg Heparin Sodium (Porcine) (Heparin Sod 5,000 Unit/0.5 Ml Vial) 5,000 units SQ Q12 ZAK Stop: 10/11/23 08:59 Last Admin: 09/13/23 08:37 Dose: 5,000 units Hydralazine HCl (Hydralazine 10 Mg Tab) 10 mg PO BID ZAK Stop: 10/11/23 08:59 Last Admin: 09/13/23 08:37 Dose: 10 mg Acetaminophen 550 mg/ EMPTY (BAG) 55 mls @ 400 mls/hr IV Q6H PRN; Protocol PRN Reason: Pain/Fever Stop: 10/11/23 13:14 Last Infusion: 09/11/23 13:50 Dose: Infused Labetalol HCl (Labetalol Hcl Iv 5 Mg/Ml 20ml) 10 mg IV Q6H PRN PRN Reason: Hypertension Stop: 10/11/23 07:24 Last Admin: 09/11/23 18:51 Dose: 10 mg Methimazole (Methimazole 5 Mg Tablet) 5 mg PO DAILY [facility] Stop: 10/11/23 08:59 Last Admin: 09/13/23 08:37 Dose: 5 mg Metoprolol Succinate (Metoprolol Succ 25mg Ext Rel Tab) 25 mg PO QAM [facility] Stop: 10/11/23 08:59 Last Admin: 09/11/23 08:45 Dose: 25 mg Metoprolol Tartrate (Metoprolol Tartrate 25 Mg Tab) 12.5 mg PO BID [facility] Stop: 10/12/23 20:59 Last Admin: 09/13/23 08:37 Dose: 12.5 mg Nitroglycerin (Nitroglycerin Sl 0.4 Mg/Tab Tab) 0.4 mg SL Q5M PRN PRN Reason: Chest Pain Stop: 10/11/23 07:24 Ondansetron HCl (Ondansetron Inj 2 Mg/Ml 2 Ml Vial) 4 mg IV Q6H PRN PRN Reason: Nausea Stop: 10/11/23 07:24 Last Admin: 09/11/23 15:46 Dose: 4 mg Pantoprazole Sodium (Pantoprazole 40 Mg Tab) 40 mg PO DAILY [facility] Stop: 10/11/23 08:59 Last Admin: 09/13/23 08:37 Dose: 40 mg Polyethylene Glycol (Polyethylene (Miralax) 17 Gm Pack) 17 gm PO DAILY PRN PRN Reason: Constipation Stop: 10/11/23 07:24 Tramadol HCl (Tramadol Hcl 50 Mg Tablet) 50 mg PO Q6H PRN PRN Reason: Mod-Sev Pain (Scale 4-10) Stop: 10/11/23 07:24 Last Admin: 09/13/23 05:18 Dose: 50 mg
--- NOTE | 2023-09-14 07:39 | Discharge Summary ---
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 seems had headaches on dialysis and withdrew from dialysis from April 2018 as per records, history of GERD who lives alone and has a sister who lives in [place] called EMS because of severe headaches and for EMS her systolic blood pressure was in 240s and patient seemed confused.Initially there was plan for call stroke alert because of confusion and high blood pressure but because not not knowing her well-known time stroke alert was not called. CT head was okay. CTA head and neck not done because of renal dysfunction. Received few doses of IV labetalol. Patient can tell her name. Could tell her date of . Knows that she is in the hospital. Could not tell current dates. Patient does not remember calling EMS and does not know why she is in the hospital. Says her headaches are better now. Denies dizziness. Denies blurred visions. Denies runny nose or sore throat or cough. Denies any difficulty swallowing. Denies fevers. Denies chest pain or shortness of breath. Denies nausea. Denies abdominal pain. States having normal bowel bladder movements. States she ambulates okay. Does not think she is taking any medications at home. She does not know that she is on medications. Tried to call sister but not able to reach. Past medical history. As mentioned above Past surgical history. Left breast biopsy. Colonoscopy with biopsy. EGD. EGD with biopsy. Right kidney donation. Abdominal hysterectomy. Cataracts. Family history. Father had oral cancer. Mother had colon cancer. Sister had melanoma. Sister had cerebral aneurysm. Social history. . Smokes 0.1 pack a day for last 7 years. No alcohol use. No drug use. Admission Exam Per Admitting Provider Physical Exam: General- Not in distress Head- atraumatic Eyes- PERRL, EOMI. ENT- oropharynx clear Neck- supple, no JVD. Lungs- clear to auscultation , No wheezing or crackles. Heart- regular rhythm; no murmur, no gallop. Abdomen- normal bowel sounds, soft, nontender, no distension. Extremities- no pretibial edema, no erythema seen Neuro- alert, oriented x 2; PERRL, EOMI; no facial palsy; no dysarthria; motor 3-4/5 bilaterally; co ordination of movements normal, No pronator drift, can lift and hold lower extremities, sensations intact, position sense intact. Skin- warm & dry Principal Diagnosis Hypertensive urgency/emergency, change in mental status, CKD, severe protein calorie malnutrition, hypothyroidism on methimazole Discharge Exam Lying in bed without any acute distress Constitutional + thin; not ill appearing Eyes PERRL, conjunctivae normal, anicteric sclerae ENMT external ear and nose normal, oropharynx normal Neck trachea midline, no thyromegaly Respiratory no respiratory distress Auscultation: lungs clear to auscultation bilaterally Cardiovascular Rate/Rhythm: regular rate and regular rhythm; not tachycardic Heart Sounds: normal S1 and normal S2; no murmur Extremities: no edema Gastrointestinal (Abdomen) Inspection/Auscultation: normal bowel sounds; abdomen not distended Percussion/Palpation: abdomen soft; abdomen nontender Neurologic normal touch/pain/proprioception and moves all extremities; no focal motor deficits Psychiatric A+Ox3, euthymic affect Lymphatic no cervical or axillary lymphadenopathy Discharge Data Allergies Allergy/AdvReac Type Severity Reaction Status Date / Time clindamycin Allergy Intermediate SEVERE Verified 11/21/21 12:46 DIARRHEA ergotamine Allergy Intermediate severe TREVIZO Verified 11/21/21 12:46 mold Allergy Intermediate MIGRAINE TREVIZO Verified 11/21/21 12:46 NSAIDS (Non-Steroidal Allergy Unknown GI SYMPTOMS Verified 11/21/21 12:46 Anti-Inflamma Fungi Allergy Intermediate MIGRAINE TREVIZO Uncoded 11/21/21 12:46 Consultations 09/11/23 05:39 ED Decision to Admit Stat 09/11/23 08:00 Consult Cardiology Routine Consult Nephrology Routine Consult Neurology Routine Ordered Studies 09/11/23 04:06 CT head/brain wo con Stat 09/11/23 07:25 MR brain wo con Routine US carotid doppler BI Routine Hospital Course (1) Altered mental status: 77-year-old female with past medical history significant for per epic notes 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 seems had headaches on dialysis and withdrew from dialysis from April 2018 as per records, history of GERD who lives alone and has a sister who lives in [place] called EMS because of severe headaches and for EMS her systolic blood pressure was in 240s and patient seemed confused.Initially there was plan for call stroke alert because of confusion and high blood pressure but because not not knowing her well-known time stroke alert was not called. CT head was okay. CTA head and neck not done because of renal dysfunction. Received few doses of IV labetalol. Patient can tell her name. Could tell her date of . Knows that she is in the hospital. Could not tell current dates. Patient does not remember calling EMS and does not know why she is in the hospital. Says her headaches are better now. Denies dizziness. Denies blurred visions. Denies runny nose or sore throat or cough. Denies any difficulty swallowing. Denies fevers. Denies chest pain or shortness of breath. Denies nausea. Denies abdominal pain. States having normal bowel bladder movements. States she ambulates okay. Does not think she is taking any medications at home. She does not know that she is on medications. Tried to call sister but not able to reach. Altered mental status Patient called EMS for severe headaches but currently patient does not remember that she called EMS and does not know why she is in the hospital Multifactorial etiology including hypertensive encephalopathy, acute on chronic renal impairment, acute neurologic events, infection CT of the head and MRI are unremarkable Appreciate neurology input and recommendation-change in mental status is due to hypertensive encephalopathy Resolved mental status change and it is back to her baseline Speech evaluation appreciated Evaluation and PT OT-. OT recommended 24-hour care and recommended rehab Has not had physical therapy evaluation yet Hypertensive urgency/emergency With hypertensive encephalopathy Blood pressures was noted as high as 218/118 with symptoms of headache, nausea vomiting Received intravenous labetalol Has been on amlodipine and hydralazine BP seems to be reasonably controlled Echo of the heart showed-LV systolic function is normal, EF 65 to 70%, mild concentric LVH, grade 1 diastolic dysfunction and no significant valvular pathology Lipid profile noted-triglyceride 119, cholesterol 218, LDL 108, VLDL 38, HDL cholesterol 76 and hemoglobin A1c is 5.9 Appreciate cardiology input and recommendation Blood pressure remains stable and on the lower side at 108/55 CKD stage V with history of right kidney donation Baseline creatinine around 2.5 Presented with creatinine of 2 Appreciate nephrology input and recommendation Creatinine remains elevated at 2.23 She has been making out adequate urine Creatinine remains stable at 2.44 Severe protein calorie malnutrition She definitely has poor nutrition with BMI of only 13.0 Nutritional assessment Hyperthyroidism On methimazole as per epic DHS -low at 0.108 and free T4 is normal at 0.69 We will continue the current dose of methimazole GERD PPI DVT prophylaxis heparin subcu disposition telemetry CODE STATUS will keep full code for now until further discussion with the patient Needs to verify medications with the patient When she is more stable Total Time Total Time Spent Total Time Spent (In Minutes): 45 minutes Discharge Plan Discharge Items Patient Disposition: Home - Self-Care Reason For Visit: HTN URGENCY/EMERGENCY AMNESIA Discharge Diagnosis: Hypertensive urgency/emergency, change in mental status, CKD, severe protein calorie malnutrition, hypothyroidism on methimazole Condition on Discharge: Fair Activity: Resume your previous activity Non-emergency contact: Primary Care Provider Call non-emergency contact if: you have any medication questions Follow-up/Referrals: Fátima Escalante, DO [Primary Care Provider] - (Your doctor's office will call you with an appointment within 7 days) Diet: Heart Healthy Addtl Attending Provider Instructions: Please take precautions to avoid falls Take your medications regularly and as advised Please keep appointments with healthcare providers Your hydralazine has been changed to 10 mg twice daily and Toprol XL has been changed to 12.5 mg twice daily Do not use any NSAIDs like aspirin, ibuprofen, Motrin, Advil etc Pending Studies at Discharge: No Stand-Alone Forms: My The Cloakroom, Smoking Cessation Medications and DC Order Prescriptions: Continued [id number]-ijtnzjwwfgoiq-ajwb 50-325-40 mg tablet 1 tab PO BID PRN (Reason: migraine headache) 30 Days Qty: 60 5RF Rx Instructions: otc unable to verify amlodipine 5 mg tablet 10 mg PO DAILY Qty: 60 0RF methimazole 5 mg tablet 5 mg PO DAILY Qty: 30 3RF omeprazole magnesium [Prilosec OTC] 20 mg Tablet,Delayed Release (Dr/Ec) 20 mg PO DAILY Qty: 30 0RF Rx Instructions: no record with pharmacy Changed hydralazine 10 mg tablet 10 mg PO BID Qty: 60 0RF Rx Instructions: per pharmacy - 20 mg po qam and may take additional 20 mg (2x 10 mg) po prn before hs acetaminophen-codeine 300-30 mg tablet 1 tab PO UD PRN (Reason: pain) Qty: 15 0RF Rx Instructions: 1 tab po bid prn last filled in november 2021 alprazolam 0.5 mg tablet 0.5 mg PO UD PRN (Reason: anxiety) Qty: 15 0RF Rx Instructions: 0.5 mg po bid prn last filled june 2022 metoprolol succinate [Toprol XL] 25 mg tablet extended release 24 hr 12.5 mg PO BID Qty: 30 0RF Rx Instructions: 25 mg po daily last filled February 2022 eszopiclone [Lunesta] 3 mg tablet 3 mg PO UD Qty: 15 0RF Rx Instructions: 3 mg po hs last filled apr 2022 Discharge Orders: Discharge Order (Routine); Ordered 09/13/23 Ordered By: Amy Ruby Admission Data Admit Date/Time: 09/11/23 06:22 Attending Provider: Amy Ruby Admit Provider: Amy Ruby Primary Care Provider: Fátima Escalante Other Providers: Timothy Cheng; Melany Farris; Italo Sheldon; Melany Booker; Griffin Martel; Freddy Cartwright; Jaleel Arredondo; Alex Lew; Esperanza Epstein; Fermin Herrera; Ulises Kelsey; Mu Aguirre; Dante Salinas; Yas Kirkpatrick; Monica Pineda; Alex San Other Interventions: Discharge Summary Assessment (RN) Last Done: 09/13/23 13:42
== END 2023-09-13 15:31 | disposition home or self-care (01) | DRG 304 ==
LOC: ED 04:04 → EDINP 06:22 → SUATTDRO 06:22 → EDINP 07:24 → 2E 18:25

== ENCOUNTER 2024-06-06 07:00 | Inpatient (IN) ==
--- NOTE | 2024-06-06 07:10 | Emergency Department Note ---
Impression & Plan Acute headache, HTN (hypertension), Acute alteration in mental status, Sinusitis, Pneumonia ED Provider Note NAME: SURESH ALEXANDRE AGE: 78 SEX: F : 1945 ARRIVES VIA: Ambulance INFORMANT: Patient, ED PROVIDER(S): Ppai Deal DO CHIEF COMPLAINT: Headache HPI: The patient is an 78-year-old female who presented to the emergency department for evaluation of acute headache. The patient describes a frontal headache that is now more on the top of her head. She states began acutely approximately 2 hours ago. Patient did not want to come to the hospital initially. The pain continues to worsen and the patient called 9 1 morning to come to the emergency department. She was noted to have elevated blood pressure. She denies having any weakness in the arms or legs. She denies having any neck stiffness. The patient states that she has a history of migraines in the past but does not take any medication currently because she has not had 1" years ". The patient denies having any recent trauma. She denies having any changes to her medications. ROS: See above HPI for pertinent positives & negatives. A total of 10 systems reviewed and were otherwise negative. PAST MEDICAL HISTORY: See Below PAST SURGICAL HISTORY: See Below FAMILY HISTORY: See Below SOCIAL HISTORY: See Below HOME MEDICATIONS: See Below ALLERGIES: See Below VITALS: See Below PHYSICAL EXAMINATION: GENERAL: The patient is awake and alert. The patient is very anxious and appears to be uncomfortable. EYES: The conjunctivae are clear. The pupils are round and reactive. EARS, NOSE, MOUTH AND THROAT: The nose is without any evidence of any deformity. NECK: The neck is nontender and supple. RESPIRATORY: Normal respiratory effort is noted there is no evidence of wheezing rhonchi or rales CARDIOVASCULAR: Regular rate and rhythm noted there no murmurs rubs or gallops normal S1 normal S2. GASTROINTESTINAL: The abdomen is soft. Abdomen is nontender. MUSCULOSKELETAL/EXTREMITIES: There is no evidence of gross deformity full range of motion is noted in the hips and shoulders. SKIN: There is no obvious evidence of any rash. There are no petechiae, pallor or cyanosis noted. NEUROLOGIC: Patient is awake alert and oriented x3 strength is symmetric patellar reflexes are 2+ bilaterally MEDICAL DECISION MAKING: The patient is an 78-year-old female who presented to the emergency department initially with an acute onset of a headache. She was not made a stroke alert. She had no focal neurologic deficits but she was initially found of a very elevated blood pressure. She was treated with a migraine cocktail as well as antihypertensive medication emergency department. On reevaluation vital signs were much more encouraged and. I discussed the patient's radiographic studies with him. She appeared to be awake alert and oriented x 3 on my initial evaluation but I think she may have been manipulating some of her answers. On reevaluation nursing staff had multiple times noticed that she was not exactly completely forthcoming with her answers and appeared to be confused at times. I discussed the patient's condition with her. She was evaluated by the emergency department casework manager. She was felt to be a good candidate for inpatient management. I discussed her condition with the on-call [facility] hospitalist. Triage Nursing notes reviewed. Prior medical records reviewed Vital Signs: reviewed and remarkable for no significant abnormalities Differential diagnosis: Migraine headache, meningitis, sinusitis, CO exposure, ICH, SAH, infection, tumor, headache, sinus thrombosis, arterial dissection, as well as other pathologies. ER treatment provided: See below Diagnostics interpreted by me: ECG: EKG was obtained in the emergency department. My interpretation is sinus tachycardia at 108 bpm. There was no ectopy. Right bundle branch block pattern was noted. LVH was suggested by voltage criteria. This was compared to a tracing from September 11, 2023. No changes were noted. Cardiac Monitoring: An order was placed for continuous cardiac monitoring. The monitor shows a rate of 89 bpm with sinus rhythm. Laboratory studies: As stated above and show below. Imaging studies: See below. Radiographic imaging was reviewed by myself Consultation(s): I discussed this case with Dr. Lazcano who is on-call for the [facility]. Past Med/Surg History Problem List (Updated 06/06/24 @ 11:59 by Papi Deal DO) Pneumonia (Acute) Sinusitis (Acute) Acute alteration in mental status (Acute) Acute headache (Acute) Hypertensive emergency (Acute) Incomplete RBBB Vasovagal reaction Heart block AV second degree Goals of care, counseling/discussion Failure to thrive in adult CKD (chronic kidney disease) stage 4, GFR 15-29 ml/min Hypertensive emergency without congestive heart failure Altered mental status (Acute) Headache (Acute) Low weight ESRD (end stage renal disease) Weight loss Fatigue Toxic multinodular goiter Central venous catheter in place, permanent Radial head fracture, closed (Acute) Lunate fracture, closed (Acute) Aftercare for cast or splint check or change (Acute) Hypertension (Acute) Vertigo (Acute) GERD (gastroesophageal reflux disease) (Chronic) Chest pain (Acute) Aortic aneurysm (Chronic) Migraine (Chronic) Prinzmetal's angina (Chronic) HTN (hypertension) (Chronic) Medical History CKD (chronic kidney disease) stage 5, GFR less than 15 ml/min Hyperthyroidism Kidney donor Prinzmetal's angina Diverticulitis Sigmoid stricture Anxiety Colitis GERD (gastroesophageal reflux disease) Aortic aneurysm HTN (hypertension) Surgical History History of AAA (abdominal aortic aneurysm) repair History of nephrectomy History of hysterectomy Social History Smoking Status: Former smoker Second Hand Exposure: No; Do You Dip or Chew Tobacco: No; Hx Alcohol Use: No Hx Substance Use: No Preferred Language: Liberian Communication Ability: Effective [employer] Manager Required: No Beliefs That Will Affect Care: None marital status: / Current Living Situation: Alone Current Living Situation Comment: lives alone; sister in [place]; daughter/ current occupational status: retired 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 Feels Safe at Home: Yes Assistive Devices: Glasses Allergies Allergies Allergy/AdvReac Type Severity Reaction Status Date / Time clindamycin Allergy Intermediate SEVERE Verified 11/21/21 12:46 DIARRHEA ergotamine Allergy Intermediate severe TREVIZO Verified 11/21/21 12:46 mold Allergy Intermediate MIGRAINE TREVIZO Verified 11/21/21 12:46 NSAIDS (Non-Steroidal Allergy Unknown GI SYMPTOMS Verified 11/21/21 12:46 Anti-Inflamma Fungi Allergy Intermediate MIGRAINE TREVIZO Uncoded 11/21/21 12:46 Home Meds Home Medications Medication Instructions Recorded Confirmed No Known Home Medications 06/06/24 06/06/24 Results & Data (ED) Vital Signs Vital Signs - 24 hr 06/06/24 07:46 06/06/24 07:47 06/06/24 07:48 Temperature Temperature Source Pulse Rate 103 H 103 H Respiratory Rate 20 Blood Pressure 192/108 H 192/108 H Blood Pressure Mean 135 Pulse Oximetry Oxygen Delivery Method Sepsis Recent Fever Within 48 Hours Sepsis New/Unexplained Change in Mental Status Sepsis Action Taken by Nursing 06/06/24 07:51 06/06/24 07:52 06/06/24 07:54 Temperature 36.5 C Temperature Source Oral Pulse Rate 91 H 85 86 Respiratory Rate 25 H 20 Blood Pressure 192/108 H Blood Pressure Mean 136 Pulse Oximetry 96 96 Oxygen Delivery Method Room Air Sepsis Recent Fever Within 48 Hours No Sepsis New/Unexplained Change in Mental Status N/A Sepsis Action Taken by Nursing No Action Required 06/06/24 07:54 06/06/24 07:54 06/06/24 07:54 Temperature Temperature Source Pulse Rate Respiratory Rate Blood Pressure 157/89 H 157/89 H 157/89 H Blood Pressure Mean 118 118 118 Pulse Oximetry Oxygen Delivery Method Sepsis Recent Fever Within 48 Hours Sepsis New/Unexplained Change in Mental Status Sepsis Action Taken by Nursing 06/06/24 08:00 06/06/24 08:00 06/06/24 08:06 Temperature Temperature Source Pulse Rate 82 Respiratory Rate 16 Blood Pressure 169/93 H 169/93 H Blood Pressure Mean 131 131 Pulse Oximetry Oxygen Delivery Method Sepsis Recent Fever Within 48 Hours Sepsis New/Unexplained Change in Mental Status Sepsis Action Taken by Nursing 06/06/24 08:11 06/06/24 08:12 06/06/24 08:15 Temperature Temperature Source Pulse Rate 86 86 Respiratory Rate 21 Blood Pressure 147/87 H Blood Pressure Mean 104 Pulse Oximetry Oxygen Delivery Method Sepsis Recent Fever Within 48 Hours Sepsis New/Unexplained Change in Mental Status Sepsis Action Taken by Nursing 06/06/24 08:15 06/06/24 08:15 06/06/24 08:27 Temperature Temperature Source Pulse Rate 86 85 Respiratory Rate 16 20 Blood Pressure 147/87 H Blood Pressure Mean 104 Pulse Oximetry Oxygen Delivery Method Sepsis Recent Fever Within 48 Hours Sepsis New/Unexplained Change in Mental Status Sepsis Action Taken by Nursing 06/06/24 08:30 06/06/24 08:30 06/06/24 08:36 Temperature Temperature Source Pulse Rate 86 87 Respiratory Rate 20 Blood Pressure 137/77 137/77 Blood Pressure Mean 96 Pulse Oximetry 95 Oxygen Delivery Method Sepsis Recent Fever Within 48 Hours Sepsis New/Unexplained Change in Mental Status Sepsis Action Taken by Nursing 06/06/24 08:42 06/06/24 08:45 06/06/24 08:45 Temperature Temperature Source Pulse Rate 89 Respiratory Rate 17 Blood Pressure 156/90 H 156/90 H Blood Pressure Mean 104 104 Pulse Oximetry Oxygen Delivery Method Sepsis Recent Fever Within 48 Hours Sepsis New/Unexplained Change in Mental Status Sepsis Action Taken by Nursing 06/06/24 08:45 06/06/24 08:45 06/06/24 08:57 Temperature Temperature Source Pulse Rate 87 90 Respiratory Rate 17 20 Blood Pressure 156/90 H Blood Pressure Mean 104 Pulse Oximetry Oxygen Delivery Method Sepsis Recent Fever Within 48 Hours Sepsis New/Unexplained Change in Mental Status Sepsis Action Taken by Nursing 06/06/24 09:00 06/06/24 09:00 06/06/24 09:00 Temperature Temperature Source Pulse Rate 91 H Respiratory Rate 20 Blood Pressure 109/70 109/70 Blood Pressure Mean 89 89 Pulse Oximetry Oxygen Delivery Method Sepsis Recent Fever Within 48 Hours Sepsis New/Unexplained Change in Mental Status Sepsis Action Taken by Nursing 06/06/24 09:09 06/06/24 09:15 06/06/24 09:15 Temperature Temperature Source Pulse Rate 91 H Respiratory Rate 19 Blood Pressure 126/63 126/63 Blood Pressure Mean 83 83 Pulse Oximetry Oxygen Delivery Method Sepsis Recent Fever Within 48 Hours Sepsis New/Unexplained Change in Mental Status Sepsis Action Taken by Nursing 06/06/24 09:18 06/06/24 09:21 06/06/24 09:30 Temperature Temperature Source Pulse Rate 90 89 Respiratory Rate 20 20 Blood Pressure 126/73 Blood Pressure Mean 96 Pulse Oximetry Oxygen Delivery Method Sepsis Recent Fever Within 48 Hours Sepsis New/Unexplained Change in Mental Status Sepsis Action Taken by Nursing 06/06/24 09:30 06/06/24 09:33 06/06/24 09:42 Temperature Temperature Source Pulse Rate 90 92 H Respiratory Rate 19 18 Blood Pressure 126/73 Blood Pressure Mean 96 Pulse Oximetry Oxygen Delivery Method Sepsis Recent Fever Within 48 Hours Sepsis New/Unexplained Change in Mental Status Sepsis Action Taken by Nursing 06/06/24 09:45 06/06/24 09:54 06/06/24 10:00 Temperature Temperature Source Pulse Rate 89 Respiratory Rate 19 Blood Pressure 132/79 133/78 Blood Pressure Mean 93 87 Pulse Oximetry Oxygen Delivery Method Sepsis Recent Fever Within 48 Hours Sepsis New/Unexplained Change in Mental Status Sepsis Action Taken by Nursing 06/06/24 10:06 06/06/24 10:12 06/06/24 10:15 Temperature Temperature Source Pulse Rate 92 H Respiratory Rate 22 20 Blood Pressure 125/63 Blood Pressure Mean 83 Pulse Oximetry Oxygen Delivery Method Sepsis Recent Fever Within 48 Hours Sepsis New/Unexplained Change in Mental Status Sepsis Action Taken by Nursing 06/06/24 10:15 06/06/24 10:15 06/06/24 10:15 Temperature Temperature Source Pulse Rate 95 H Respiratory Rate 23 Blood Pressure 125/63 125/63 Blood Pressure Mean 83 83 Pulse Oximetry Oxygen Delivery Method Sepsis Recent Fever Within 48 Hours Sepsis New/Unexplained Change in Mental Status Sepsis Action Taken by Nursing 06/06/24 10:21 06/06/24 10:30 06/06/24 10:30 Temperature Temperature Source Pulse Rate 95 H Respiratory Rate 31 H Blood Pressure 161/89 H 161/89 H Blood Pressure Mean 114 114 Pulse Oximetry 94 Oxygen Delivery Method Sepsis Recent Fever Within 48 Hours Sepsis New/Unexplained Change in Mental Status Sepsis Action Taken by Nursing 06/06/24 10:30 06/06/24 10:45 06/06/24 10:45 Temperature Temperature Source Pulse Rate 96 H 94 H Respiratory Rate 18 22 Blood Pressure 133/82 Blood Pressure Mean 100 Pulse Oximetry 94 95 Oxygen Delivery Method Sepsis Recent Fever Within 48 Hours Sepsis New/Unexplained Change in Mental Status Sepsis Action Taken by Nursing 06/06/24 10:45 06/06/24 10:45 06/06/24 10:51 Temperature Temperature Source Pulse Rate 98 H Respiratory Rate 22 Blood Pressure 133/82 133/82 Blood Pressure Mean 100 100 Pulse Oximetry 95 Oxygen Delivery Method Sepsis Recent Fever Within 48 Hours Sepsis New/Unexplained Change in Mental Status Sepsis Action Taken by [facility] Medications Current Medication List: was personally reviewed by me Laboratory Data Attestation: I reviewed the patient's lab results. 06/06/24 07:25 06/06/24 07:25 Lab Results 06/06/24 06/06/24 06/06/24 Range/Units 07:25 07:29 10:27 WBC 6.26 (4.8-10.8) K/ul RBC 4.54 (4.20-5.40) M/uL Hgb 13.0 (12.0-16.0) g/dl POC Hgb 13.9 (12.0-16.0) g/dl Hct 40.9 (37.0-47.0) % POC Hct 41 (37-47) % MCV 90.1 (80.0-100.0) fL MCH 28.6 (25.0-34.0) pg MCHC 31.8 L (32.0-36.0) g/dL RDW Std Deviation 47.8 H (36.4-46.3) fL RDW Coeff of Maciej 14.6 H (11.5-14.5) % Plt Count 241 (130-400) K/uL MPV 9.6 (9.4-12.4) fL Immature Gran % (Auto) 0.3 % Neut % (Auto) 78.6 % Lymph % (Auto) 15.7 % [place] % (Auto) 4.3 % Eos % (Auto) 0.6 % Baso % (Auto) 0.5 % Neut # (Auto) 4.92 (1.40-6.50) K/uL Lymph # (Auto) 0.98 L (1.20-3.40) K/uL [place] # (Auto) 0.27 (0.11-0.59) K/uL Eos # (Auto) 0.04 (0.00-0.50) K/uL Baso # (Auto) 0.03 (0.00-0.20) K/uL Immature Gran # (Auto) 0.02 (0.01-0.20) K/uL PT 10.4 (9.0-12.0) Seconds INR 1.0 (0.9-1.1) APTT 24 (21-31) Seconds PTT Ratio 0.9 POC Sodium 138 (135-144) mmol/L Sodium 138 (136-145) mmol/L POC Potassium 4.6 (3.3-5.0) mmol/L Potassium 4.6 (3.5-5.1) mmol/L POC Chloride 110 (101-112) mmol/L Chloride 107 (98-107) mmol/L Carbon Dioxide 22 (21-32) mmol/L POC Total CO2 20 L (24-31) mmol/L Anion Gap 9 (3-11) POC Anion Gap 14.0 L (16-25) mmol/L POC BUN 42 H (7-18) mg/dl BUN 50 H (6-23) mg/dl Creatinine 1.90 H (0.6-1.2) mg/dl POC Creatinine 2.0 H (0.6-1.3) mg/dl Est Cr Clr Drug Dosing 15.9 ml/min eGFR 26.36 BUN/Creatinine Ratio 26.3 H (10-20) Glucose 131 H (70-99(Fasting)) mg/dl POC Glucose (other) 131 H (70-99) mg/dl Calcium 9.6 (8.6-10.3) mg/dl POC Ioniz Calcium Bennett 1.23 (1.12-1.32) mmol/l Magnesium 2.0 (1.7-2.4) mg/dl Total Bilirubin 0.3 (0.2-1.0) mg/dl AST 13 (13-39) U/L ALT 8 (7-52) U/L Alkaline Phosphatase 107 H (34-104) U/L Troponin I High Sens 9.4 (0-14) pg/ml Total Protein 7.5 (6.0-8.3) gm/dl Albumin 3.6 (3.4-5.0) gm/dl Globulin 3.9 (2.5-4.0) gm/dl Albumin/Globulin Ratio 0.9 (0.9-2) SARS-CoV-2 (PCR) NEGATIVE (Negative) Influenza Type A (PCR) Negative (Neg) Influenza Type B (PCR) Negative (Neg) RSV (RT-PCR) Negative (Neg) Administered Medications Discontinued Medications Acetaminophen (Ofirmev) 1,000 mg in 100 mls @ 400 mls/hr IV NOW STA Stop: 06/06/24 07:21 Last Infusion: 06/06/24 07:57 Dose: Infused Documented By: Admin: 06/06/24 07:32 Dose: 400 mls/hr Documented By: CANDY Promethazine HCl (Phenergan) 12.5 mg in 50.5 mls @ 202 mls/hr IV NOW STA Stop: 06/06/24 07:21 Last Infusion: 06/06/24 08:35 Dose: Infused Documented By: Admin: 06/06/24 07:57 Dose: 202 mls/hr Documented By: CANDY Ceftriaxone Sodium (Rocephin) 2,000 mg in 50 mls @ 100 mls/hr IV NOW STA Stop: 06/06/24 10:38 Last Infusion: 06/06/24 11:10 Dose: Infused Documented By: NRSyed Admin: 06/06/24 10:21 Dose: 100 mls/hr Documented By: ML Ketorolac Tromethamine (Ketorolac Tromethamine 15 Mg/Ml Vial) 10 mg IV NOW ONE Stop: 06/06/24 11:04 Last Admin: 06/06/24 11:07 Dose: 10 mg Documented By: NRB Labetalol HCl (Labetalol Hcl Iv 5 Mg/Ml 20ml) 5 mg IV NOW STA Stop: 06/06/24 07:41 Last Admin: 06/06/24 07:47 Dose: 5 mg Documented By: ML Ondansetron HCl (Ondansetron Inj 2 Mg/Ml 2 Ml Vial) 4 mg IV NOW STA Stop: 06/06/24 11:04 Last Admin: 06/06/24 11:07 Dose: 4 mg Documented By: NRB Imaging Data Attestation: I personally reviewed and interpreted this imaging study as follows: My Impression: 1 view chest x-ray was obtained in the emergency department. My interpretation is no free air, final report below. Pretest CT of the brain was obtained in the emergency department. Interpretation is now intracranial hemorrhage, final report below. Radiologist's Impression: Chest X-Ray 06/06/24 07:07 XR chest 1V portable CLINICAL HISTORY: neuro deficit, acute stroke suspected COMPARISON STUDY: Chest radiograph September 11, 2023. FINDINGS: Lung volumes are normal. There may be mild right upper lung airspace opacity. There is no pneumothorax or pleural effusion. Cardiac size is normal. Mediastinal contours are normal. There is no evidence for pulmonary edema. Thoracic spine dextroscoliosis is incidentally noted. IMPRESSION: Patchy right upper lung densities. These may be artifactual however an infectious process could appear similar. Follow-up PA and lateral chest radiographs in one month to ensure resolution are recommended. ACT 112: Negative or not required by law. Electronically signed by: Gianluca Gonzales M.D. 06/06/2024 8:[address] 06/06/24 07:07 EXAM: CT head/brain wo con CLINICAL HISTORY: Neuro deficit, acute stroke suspected. TECHNIQUE: An axial non-contrast CT scan of the brain was performed from the skull base to the high parietal region. One of the following dose reduction techniques were utilized for this exam: Automated exposure control, adjustment of the mA and/or kV according to patient size, and use of iterative reconstruction. DLP: 547.75 mGy-cm, CTDI: 40.3 mGy. COMPARISON: MRI Brain and CT Brain dated . FINDINGS: Brain Parenchyma: Normal attenuation of the cerebral hemispheres, cerebellum, and brainstem. No evidence of acute infarct, hemorrhage, or mass effect. No abnormal areas of hypo- or hyperattenuation. Ventricular System: Mild dilatation of the ventricular system, with diffuse periventricular hypodensity, likely due to diffuse ischemic changes. Subarachnoid Spaces: Increased extra-axial subarachnoid spaces with prominent gyri and deep sulci of the brain, prominent cerebellar folia, basal cisterns, and Mp fissures. No evidence of subarachnoid hemorrhage or extra-axial fluid collections. Cerebellum and Brainstem: Normal size and signal. No masses, lesions, or areas of abnormal signal. Orbits: Normal appearance of the globes, optic nerves, and extraocular muscles. No evidence of orbital masses or abnormal signals. Sinuses: Left sphenoid acute sinusitis Clear other paranasal sinuses. Mastoid Air Cells: Clear mastoid air cells. No evidence of mastoiditis. Skull: Normal skull morphology. IMPRESSION: 1. No acute Brain insult. (stable). 2. Diffuse Brain Atrophic changes. (stable). 3. Diffuse chronic microvascular ischemic disease. (stable). Electronically signed by Sondra Gimenez 06-06-2024 08:30 AM Discharge Plan Visit Data Chief Complaint: Hypertension Stated Complaint: HEADACHE, HTN ED Provider: Papi Deal Discharge Problem: Acute headache, HTN (hypertension), Acute alteration in mental status, Sinusitis, Pneumonia Patient Disposition: Being Evaluated by Hospitalist Forms Stand Alone Forms: My [email or web address] Prescriptions Prescriptions: No Action No Known Home Medications Referrals Referrals: Fátima Escalante DO [Primary Care Provider] -
[2024-06-06] MEDS: ACETAMINOPHEN 1,000 MG/100 ML VIAL IV STA ×2 (07:32→12:57)
[2024-06-06] MEDS: LABETALOL HCL IV 5 MG/ML 20ML IV STA (07:47)
[2024-06-06 07:51] LABS: Partial Thromboplastin Ratio 0.9; Partial Thromboplastin Time 24 Seconds (21-31); Prothrombin Time 10.4 Seconds (9.0-12.0)
[2024-06-06 07:53] LABS: Basophils # (auto) 0.03 K/uL (0.00-0.20); Basophils % (auto) 0.5 %; Eosinophils # (auto) 0.04 K/uL (0.00-0.50); Eosinophils % (auto) 0.6 %; Hematocrit (blood only) 40.9 % (37.0-47.0); Immature Granulocytes # (auto) 0.02 K/uL (0.01-0.20); Immature Granulocytes % (auto) 0.3 %; Lymphocytes # (auto) 0.98 K/uL (1.20-3.40); Lymphocytes % (auto) 15.7 %; Mean Corpuscular Hemoglobin 28.6 pg (25.0-34.0); Mean Corpuscular Hgb Conc 31.8 g/dL (32.0-36.0); Mean Corpuscular Volume 90.1 fL (80.0-100.0); Mean Platelet Volume 9.6 fL (9.4-12.4); Monocytes # (auto) 0.27 K/uL (0.11-0.59); Monocytes % (auto) 4.3 %; Neutrophils # (auto) 4.92 K/uL (1.40-6.50); Neutrophils % (auto) 78.6 %; Platelet Count 241 K/uL (130-400); RDW Coefficient of Variation 14.6 % (11.5-14.5); RDW Standard Deviation 47.8 fL (36.4-46.3); Red Blood Count 4.54 M/uL (4.20-5.40); White Blood Count 6.26 K/ul (4.8-10.8)
[2024-06-06] MEDS: PROMETHAZINE 12.5 MG/50.5 ML BAG IV STA (07:57)
[2024-06-06 08:09] LABS: Alanine Aminotransferase 8 U/L (7-52); Albumin Globulin Ratio 0.9 (0.9-2); Albumin Level 3.6 gm/dl (3.4-5.0); Alkaline Phosphatase 107 U/L (34-104); Anion Gap 9 (3-11); Aspartate Aminotransferase 13 U/L (13-39); BUN Creatinine Ratio 26.3 (10-20); Bilirubin,Total 0.3 mg/dl (0.2-1.0); Blood Urea Nitrogen 50 mg/dl (6-23); Calcium 9.6 mg/dl (8.6-10.3); Carbon Dioxide 22 mmol/L (21-32); Chloride 107 mmol/L (98-107); Creatinine Clr Calc Pharmacy 15.9 ml/min; Globulin 3.9 gm/dl (2.5-4.0); Glucose 131 mg/dl (70-99(Fasting)); Potassium 4.6 mmol/L (3.5-5.1); Sodium 138 mmol/L (136-145); Total Protein 7.5 gm/dl (6.0-8.3)
[2024-06-06 08:15] LABS: Troponin I High Sensitivity 9.4 pg/ml (0-14)
--- NOTE | 2024-06-06 08:16 | XRay Report ---
XR chest 1V portable CLINICAL HISTORY: neuro deficit, acute stroke suspected COMPARISON STUDY: Chest radiograph September 11, 2023. FINDINGS: Lung volumes are normal. There may be mild right upper lung airspace opacity. There is no p neumothorax or pleural effusion. Cardiac size is normal. Mediastinal contours are normal. There is no evidence for pulmonary edema. Thoracic spine dextroscoliosis is incidentally noted. IMPRESSION: Patchy right upper lung densities. These may be artifactual however an infectious process could appear similar. Follow-up PA and lateral chest radiographs in one month to ensure resolution a re recommended. ACT 112: Negative or not required by law. Electronically signed by: Gianluca Gonzales M.D. 06/06/2024 8:14 AM
--- NOTE | 2024-06-06 08:31 | CT Scan Report ---
EXAM: CT head/brain wo con CLINICAL HISTORY: Neuro deficit, acute stroke suspected. TECHNIQUE: An axial non-contrast CT scan of the brain was performed from the skull base to the high parietal region. One of the following dose reduction techniques were utilized for this exam: Automated exposure control, adjustment of the mA and/or kV according to patient size, and use of iterative reconstruction. DLP: 547.75 mGy-cm, CTDI: 40.3 mGy. COMPARISON: MRI Brain and CT Brain dated . FINDINGS: Brain Parenchyma: Normal attenuation of the cerebral hemispheres, cerebellum, and brainstem. No evidence of acute infarct, hemorrhage, or mass effect. No abnormal areas of hypo- or hyperattenuation. Ventricular System: Mild dilatation of the ventricular system, with diffuse periventricular hypodensity, likely due to diffuse ischemic changes. Subarachnoid Spaces: Increased extra-axial subarachnoid spaces with prominent gyri and deep sulci of the brain, prominent cerebellar folia, basal cisterns, and Mp fissures. No evidence of subarachnoid hemorrhage or extra-axial fluid collections. Cerebellum and Brainstem: Normal size and signal. No masses, lesions, or areas of abnormal signal. Orbits: Normal appearance of the globes, optic nerves, and extraocular muscles. No evidence of orbital masses or abnormal signals. Sinuses: Left sphenoid acute sinusitis Clear other paranasal sinuses. Mastoid Air Cells: Clear mastoid air cells. No evidence of mastoiditis. Skull: Normal skull morphology. IMPRESSION: 1. No acute Brain insult. (stable). 2. Diffuse Brain Atrophic changes. (stable). 3. Diffuse chronic microvascular ischemic disease. (stable). Electronically signed by Sondra Gimenez 06-06-2024 08:30 AM
[2024-06-06 08:33] LABS: iSTAT Hemoglobin 13.9 g/dl (12.0-16.0); iSTAT Ionized Calcium 1.23 mmol/l (1.12-1.32); iSTAT Potassium 4.6 mmol/L (3.3-5.0)
[2024-06-06] MEDS: cefTRIAXone SODIUM 2,000 MG/50 ML BAG IV STA ×2 (10:21→21:02)
[2024-06-06] MEDS: ONDANSETRON INJ 2 MG/ML 2 ML VIAL IV STA (11:07)
[2024-06-06] MEDS: KETOROLAC TROMETHAMINE 15 MG/ML VIAL IV ONE (11:07)
[2024-06-06 11:16] LABS: Influenza A virus by PCR Negative (Neg); Influenza B virus by PCR Negative (Neg); RSV by PCR Negative (Neg); SARS CoV2 RNA(COVID-19) Ceph NEGATIVE (Negative)
[2024-06-06] MEDS: amLODIPine BESYLATE 5 MG TAB PO ONE (11:57)
[2024-06-06] MEDS ORDERED: LABETALOL HCL IV 5 MG/ML 20ML IV PRN (12:10)
[2024-06-06] MEDS ORDERED: ACETAMINOPHEN 1,000 MG/100 ML VIAL IV PRN (12:14)
[2024-06-06] MEDS: OPTIRAY 320 100ml IV ONE (12:48)
[2024-06-06] MEDS: diphenhydrAMINE Capsule 25 MG CAP PO ONE (12:55)
[2024-06-06] MEDS: DEXAMETHASONE SOD INJ 4 MG/ML VIAL IV STA (12:56)
[2024-06-06] MEDS: METOCLOPRAMIDE HCL INJ 5 MG/ML 2 ML VIAL IV ONE (12:59)
--- NOTE | 2024-06-06 13:21 | History & Physical Report ---
Date of Service June 06, 2024 Assessment & Plan (1) Common migraine without aura: Plan: -patient states this feels like her normal migraines, just slightly more intense -slightly improved with toradol but still quite severe -she states she does not feel well enough to go home yet, and wants monitored -likely worse 2/2 hypertension -differential includes stroke (no focal deficits), hyperactive delirium (possible), other metabolic disorder (not clear), less likely mass given imaging, meningitis, Plan: -migraine cocktail with reglan, decadron, tylenol and benadryl -monitor overnight -if migraine still present in morning or more altered will get MR head -check ESR/CRP, TSH -PT/OT if still not feeling well in morning (2) Right upper lobe consolidation: Plan: -no cough, fever, other associated symptoms -has cachexia, slightly confused -differential includes fibrosis/scarring, latent infection, mass (possible given cachexia), less likely active infection Plan: -stop abx -CT chest with contrast to deterimine etiology (3) Acute metabolic encephalopathy: Plan: -patient slightly confused at this time -possibly 2/2 headache Plan: -check B12, TSH, UA -start folic acid, thiamine (4) Hypertension: Plan: -noted, no evidence of end organ damage Plan: -continue amlodopine, start lisinopril 10 mg (5) Hyperthyroidism: Plan: -check TSH (6) Prinzmetal's angina: Plan: -avoid nitrates, triptans (7) CKD (chronic kidney disease) stage 5, GFR less than 15 ml/min: Plan: -appears better than baseline Plan Feeding/fluids: regular Analgesia: tylenol, toradol Sedation: na Thromboprophylaxis: heparin Head up position: na Ulcer prophylaxis: na Glycemic control: na Spontaneous breathing trial: na Bowel care: miralax prn Indwelling catheter removal: na Deescalation of antibiotics: stop abx I spent a total of 80 minutes in direct patient care, including [id number] time with the patient and/or family, reviewing medical records, ordering and reviewing diagnostic tests, and coordinating care with other healthcare providers. This time includes: history taking, physical examination, medical decision making, counseling, ECG interpretation, imaging interpretation, lab interpretation, orders, and education, excluding time spent in the performance of separately billed services. History of Present Illness Chief Complaint: -headache Primary Care Provider: Fátima Escalante DO 78-year-old female with past medical history of GERD, hyperlipidemia cut, toxic goiter, migraines since childhood, CKD 3, hypertension who presents for a severe migraine from home. In the ED, given Given Toradol with slight improvement in headache, patient seemed confused and states she is concerned about going home, admitted to medicine. Patient seen and examined at bedside. Patient doing okay today. She states that this headache started in the morning, does not remember occurring yesterday. Used to have frequent migraines as a kid and through most of her adult life but they have progressively gotten worse in severity and frequency as she is gotten older. This is in the same pattern of her prior headaches, however just more intense. She states she is not taking any medications at home. States that the Toradol helped her headache a decent bit but now it is coming back and ended at the same intensity. She states she does not feel comfortable going home and and feels slightly confused. Allergies Allergy/AdvReac Type Severity Reaction Status Date / Time clindamycin Allergy Intermediate SEVERE Verified 11/21/21 12:46 DIARRHEA ergotamine Allergy Intermediate severe TREVIZO Verified 11/21/21 12:46 mold Allergy Intermediate MIGRAINE TREVIZO Verified 11/21/21 12:46 NSAIDS (Non-Steroidal Allergy Unknown GI SYMPTOMS Verified 11/21/21 12:46 Anti-Inflamma Fungi Allergy Intermediate MIGRAINE TREVIZO Uncoded 11/21/21 12:46 Home Medications Medication Instructions Recorded Confirmed Type No Known Home Medications 06/06/24 06/06/24 History Past Med/Surg History Problem List (Updated 06/06/24 @ 13:25 by Flaquito Lazcano MD) Right upper lobe consolidation Acute metabolic encephalopathy Hyperthyroidism Common migraine without aura Pneumonia (Acute) Sinusitis (Acute) Acute alteration in mental status (Acute) Acute headache (Acute) Hypertensive emergency (Acute) Incomplete RBBB Vasovagal reaction Heart block AV second degree Goals of care, counseling/discussion Failure to thrive in adult CKD (chronic kidney disease) stage 4, GFR 15-29 ml/min Hypertensive emergency without congestive heart failure Altered mental status (Acute) Headache (Acute) Low weight ESRD (end stage renal disease) Weight loss Fatigue Toxic multinodular goiter Central venous catheter in place, permanent Radial head fracture, closed (Acute) Lunate fracture, closed (Acute) Aftercare for cast or splint check or change (Acute) Hypertension (Acute) Vertigo (Acute) GERD (gastroesophageal reflux disease) (Chronic) Chest pain (Acute) Aortic aneurysm (Chronic) Migraine (Chronic) Prinzmetal's angina (Chronic) HTN (hypertension) (Chronic) Medical History Toxic multinodular goiter Hypertension Headache Esophageal reflux Diverticulitis (11/13/10) Anxiety (11/13/10) AAA (abdominal aortic aneurysm) Tachycardia Pulmonary emphysema Numbness of extremity Meralgia paresthetica of left side Insomnia Dyspnea on exertion CKD (chronic kidney disease) stage 5, GFR less than 15 ml/min Hyperthyroidism Kidney donor Prinzmetal's angina Diverticulitis Sigmoid stricture Anxiety Colitis GERD (gastroesophageal reflux disease) Aortic aneurysm HTN (hypertension) Surgical History History of AAA (abdominal aortic aneurysm) repair History of nephrectomy History of hysterectomy Social History Smoking Status: Former smoker Second Hand Exposure: No; Do You Dip or Chew Tobacco: No; Hx Alcohol Use: No Hx Substance Use: No Preferred Language: Haitian Communication Ability: Effective Forensic Investigator Required: No Beliefs That Will Affect Care: None marital status: / Current Living Situation: Alone Current Living Situation Comment: lives alone; sister in [place]; daughter/ current occupational status: retired 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 EYES: Patient denies any visual symptoms. EARS, NOSE, AND THROAT: headache CARDIOVASCULAR: Patient denies chest pains, palpitations, orthopnea and paroxysmal nocturnal dyspnea. RESPIRATORY: No dyspnea on exertion, no wheezing or cough. GI: No nausea, vomiting, diarrhea, constipation, abdominal pain, hematochezia or melena. : No urinary hesitancy or dribbling. No nocturia or urinary frequency. No abnormal urethral discharge. MUSCULOSKELETAL: No myalgias or arthralgias. NEUROLOGIC: No chronic headaches, no seizures. Patient denies numbness, tingling or weakness. PSYCHIATRIC: feels slightly confused ENDOCRINE: No excessive urination or excessive thirst. DERMATOLOGIC: Patient denies any rashes or skin changes. Physical Exam Physical Exam: Gen: A&O 3, slightly confused, NAD, cachexia noted HEENT: NCAT, EOMI, not icteric. External ears normal. No rhinorrhea. Moist mucous membranes. Neck: Supple, full range of motion, no observable masses, No meningeal sign. Lungs: No Respiratory distress. CV: RRR, no edema. Abdomen: Soft, nondistended, No rebound tenderness. MSK: No joint swelling, no redness. Skin: No rashes, petechiae, lesions. Normal color per patient. Neuro: Normal Gait, Grossly intact. Psych: Appropriate for situation. Results & Data Results & Data Vital Signs (Past 12 Hours) Vital Signs Temp Pulse Resp BP Pulse Ox O2 Del Method 06/06/24 12:17 90 06/06/24 10:51 98 H 22 95 06/06/24 10:45 133/82 06/06/24 10:45 133/82 06/06/24 10:45 133/82 06/06/24 10:45 94 H 22 95 06/06/24 10:30 96 H 18 94 06/06/24 10:30 161/89 H 06/06/24 10:30 161/89 H 06/06/24 10:21 95 H 31 H 94 06/06/24 10:15 95 H 23 06/06/24 10:15 125/63 06/06/24 10:15 125/63 06/06/24 10:15 125/63 06/06/24 10:12 92 H 20 06/06/24 10:06 22 06/06/24 10:00 133/78 06/06/24 09:54 89 19 06/06/24 09:45 132/79 06/06/24 09:42 92 H 18 06/06/24 09:33 90 19 06/06/24 09:30 126/73 06/06/24 09:30 126/73 06/06/24 09:21 89 20 06/06/24 09:18 90 20 06/06/24 09:15 126/63 06/06/24 09:15 126/63 06/06/24 09:09 91 H 19 06/06/24 09:00 109/70 06/06/24 09:00 109/70 06/06/24 09:00 91 H 20 06/06/24 08:57 90 20 06/06/24 08:45 87 17 06/06/24 08:45 156/90 H 06/06/24 08:45 156/90 H 06/06/24 08:45 156/90 H 06/06/24 08:42 89 17 06/06/24 08:36 87 137/77 06/06/24 08:30 137/77 06/06/24 08:30 86 20 95 06/06/24 08:27 85 20 06/06/24 08:15 86 16 06/06/24 08:15 147/87 H 06/06/24 08:15 147/87 H 06/06/24 08:12 86 21 06/06/24 08:11 86 06/06/24 08:06 82 16 06/06/24 08:00 169/93 H 06/06/24 08:00 169/93 H 06/06/24 07:54 157/89 H 06/06/24 07:54 157/89 H 06/06/24 07:54 157/89 H 06/06/24 07:54 86 20 06/06/24 07:52 36.5 C 85 25 H 192/108 H 96 Room Air 06/06/24 07:51 91 H 96 06/06/24 07:48 103 H 20 06/06/24 07:47 103 H 192/108 H 06/06/24 07:46 192/108 H Laboratory Results -personally reviewed, AG of 14 noted, creatinine below baseline Diagnostic Findings Chest X-Ray 06/06/24 07:07 XR chest 1V portable CLINICAL HISTORY: neuro deficit, acute stroke suspected COMPARISON STUDY: Chest radiograph September 11, 2023. FINDINGS: Lung volumes are normal. There may be mild right upper lung airspace opacity. There is no pneumothorax or pleural effusion. Cardiac size is normal. Mediastinal contours are normal. There is no evidence for pulmonary edema. Thoracic spine dextroscoliosis is incidentally noted. IMPRESSION: Patchy right upper lung densities. These may be artifactual however an infectious process could appear similar. Follow-up PA and lateral chest radiographs in one month to ensure resolution are recommended. ACT 112: Negative or not required by law. Electronically signed by: Gianluca Gonzales M.D. 06/06/2024 8:[address] 06/06/24 07:07 EXAM: CT head/brain wo con CLINICAL HISTORY: Neuro deficit, acute stroke suspected. TECHNIQUE: An axial non-contrast CT scan of the brain was performed from the skull base to the high parietal region. One of the following dose reduction techniques were utilized for this exam: Automated exposure control, adjustment of the mA and/or kV according to patient size, and use of iterative reconstruction. DLP: 547.75 mGy-cm, CTDI: 40.3 mGy. COMPARISON: MRI Brain and CT Brain dated . FINDINGS: Brain Parenchyma: Normal attenuation of the cerebral hemispheres, cerebellum, and brainstem. No evidence of acute infarct, hemorrhage, or mass effect. No abnormal areas of hypo- or hyperattenuation. Ventricular System: Mild dilatation of the ventricular system, with diffuse periventricular hypodensity, likely due to diffuse ischemic changes. Subarachnoid Spaces: Increased extra-axial subarachnoid spaces with prominent gyri and deep sulci of the brain, prominent cerebellar folia, basal cisterns, and Mp fissures. No evidence of subarachnoid hemorrhage or extra-axial fluid collections. Cerebellum and Brainstem: Normal size and signal. No masses, lesions, or areas of abnormal signal. Orbits: Normal appearance of the globes, optic nerves, and extraocular muscles. No evidence of orbital masses or abnormal signals. Sinuses: Left sphenoid acute sinusitis Clear other paranasal sinuses. Mastoid Air Cells: Clear mastoid air cells. No evidence of mastoiditis. Skull: Normal skull morphology. IMPRESSION: 1. No acute Brain insult. (stable). 2. Diffuse Brain Atrophic changes. (stable). 3. Diffuse chronic microvascular ischemic disease. (stable). Electronically signed by Sondra Gimenez 06-06-2024 08:30 AM Code Status & VTE Plan Code Status [id number] VTE Prophylaxis Plan VTE Prophylaxis will be ordered: Yes (1) Common migraine without aura Status migrainosus presence: with status migrainosus Intractability: intractable Qualified Code(s): G43.011 - Migraine without aura, intractable, with status migrainosus (4) Hypertension Hypertension type: primary hypertension Qualified Code(s): I10 - Essential (primary) hypertension
--- NOTE | 2024-06-06 13:31 | CT Scan Report ---
CT OF THE CHEST WITH IV CONTRAST CLINICAL HISTORY: r/o malignancy, RUL. Abnormal chest radiograph. COMPARISON STUDY: Chest radiograph June 06, 2024. CT of the abdomen and pelvis January 17 2. TECHNIQUE: Following IV administration of 60 mL of Optiray, helical axial images of the chest were o btained. Sagittal and coronal reconstructions were viewed as well as maximal intensity projections o n an independent 3-D workstation. Automated exposure control was utilized for the study. A dose low ering technique was utilized adhering to the principles of ALARA. CT DOSE: 397.76 mGy.cm FINDINGS: Several thyroid nodules measure up to 2.1 cm. No enlarged axillary, mediastinal or hilar l ymph nodes are present. Size of the heart is normal. There is no pericardial effusion. There is exten sive plaque within the descending thoracic aorta. 3.9 cm aneurysm of the mid descending thoracic aort a is present. Aneurysmal dilatation of the aorta at the level of diaphragmatic hiatus, measuring 3.3 cm has minimally increased since CT of January 17, 2022. An abdominal aortic aneurysm repair is par tially imaged on this exam. There is no pneumothorax or pleural effusion. Thoracic spine dextroscolio sis is incidentally noted. Irregular subpleural opacities within the right upper lobe are present. Th christiane extend for approximately 4.5 cm in the craniocaudal dimension. There is mild adjacent groundglass opacity. Scattered tiny pulmonary nodules are likely benign. IMPRESSION: 1. Subpleural irregular opacities within the right upper lobe which correspond to the finding on ches t radiograph performed earlier today. The findings favor pneumonia. A chest CT in 3 months is recomme nded to ensure resolution the less likely possibility of an underlying pulmonary lesion. 2. No thoracic lymphadenopathy. 3. 3.9 cm aneurysm of the mid descending thoracic aorta. Mild aneurysmal dilatation of the aorta at t he level of the diaphragmatic hiatus. Extensive plaque within the descending aorta and proximal abdom inal aorta. ACT 112: Negative or not required by law. Electronically signed by: Gianluca Gonzales M.D. 06/06/2024 1:28 PM
[2024-06-06] MEDS: lisinopril 10 MG TAB PO SCH (13:33)
[2024-06-06 14:30] LABS: C Reactive Protein < 0.50 mg/dl (0-0.5)
[2024-06-06 14:53] LABS: Thyroid Stimulating Hormone 0.046 uIu/ml (0.300-4.500)
[2024-06-06 15:47] LABS: T4 Free Thyroxine 1.04 ng/dl (0.61-1.60)
[2024-06-06] MEDS: FOLIC ACID 1 MG TAB PO SCH (17:13)
[2024-06-06] MEDS: THIAMINE HCL 100 MG TAB PO SCH (17:13)
[2024-06-06 17:41] LABS: Appearance Urine Clear (Clear); Bacteria Urine Automated None Seen (None Seen); Bilirubin Urine Negative (Negative); Blood Urine Negative (Negative); Cast Urine Automated 0-2 /lpf (0-2); Color Urine Yellow; Epithelial Cell Urine Auto 0-2 /hpf (0-2); Glucose Urine UA Negative (Negative); Ketones Urine Negative (Negative); Leukocyte Esterase Urine Negative (Negative); Nitrite Urine Negative (Negative); Protein Urine 1+ (Negative); RBC Urine Automated 0-2 /hpf (0-2); Specific Gravity Urine 1.039 (1.000-1.030); Urobilinogen Urine Negative (Negative); WBC Urine Automated 0-5 /hpf (0-5); pH Urine 5.5 (4.5-7.5)
[2024-06-06] MEDS ORDERED: POLYETHYLENE (MIRALAX) 17 GM PACK PO PRN (18:09)
[2024-06-06] MEDS ORDERED: ONDANSETRON INJ 2 MG/ML 2 ML VIAL IV PRN (18:09)
[2024-06-06] MEDS: HEPARIN SOD 5,000 UNIT/0.5 ML VIAL SQ SCH (18:47)
[2024-06-06 20:26] VITALS: RESP 14
[2024-06-06] MEDS: D5W AND LACTATED RINGERS 1,000 ML IV SCH (21:15)
[2024-06-06] MEDS: DOXYCYCLINE HYCLATE 100 MG in DEXTROSE 5% MINI-B 100 ML IV SCH (22:54)
[2024-06-07] MEDS: MELATONIN 3 MG TAB PO PRN (01:39)
[2024-06-07 08:05] VITALS: BP 148/80; PULSE 83; TEMP 98.4; O2SAT 94
[2024-06-07] MEDS: ACETAMINOPHEN 325 MG TAB PO PRN (08:19)
--- NOTE | 2024-06-07 11:54 | Communication Note ---
By CMS guidelines, a determination that the admission or continued stay is not medically necessary has been made by a member of the UR committee and a physician for this hospital stay, therefore a Code 44 will be completed and the Inpatient admission will be changed to outpatient. Date of Service: June 07, 2024
--- NOTE | 2024-06-07 12:52 | Electrocardiogram Report ---
Test Reason : Blood Pressure : */* mmHG Vent. Rate : 108 BPM Atrial Rate : 108 BPM P-R Int : 158 ms QRS Dur : 106 ms QT Int : 350 ms P-R-T Axes : 84 84 49 degrees QTcB Int : 469 ms Sinus tachycardia Incomplete right bundle branch block Abnormal ECG When compared with ECG of 11-Sep-2023 04:15, T wave inversion no longer evident in Inferior leads Confirmed by Mike Roland ([id number]) on 06/07/2024 12:51:46 PM Referred By: REFERRED SELF Confirmed By: Mike Roland
--- NOTE | 2024-06-07 13:15 | Discharge Summary ---
Discharge Summary Date of Service June 07, 2024 Principal Dx & Hospital Course #1 = Principal Diagnosis (1) Common migraine without aura: -patient states this feels like her normal migraines, just slightly more intense -slightly improved with toradol but still quite severe -she states she does not feel well enough to go home yet, and wants monitored -likely worse 2/2 hypertension -differential includes stroke (no focal deficits), hyperactive delirium (possible), other metabolic disorder (not clear), less likely mass given imaging, meningitis, Plan: -improved, no further migraines -discharge with migraine cocktail medications (2) Right upper lobe consolidation: -no cough, fever, other associated symptoms -has cachexia, slightly confused -differential includes fibrosis/scarring, latent infection, mass (possible given cachexia), less likely active infection Plan: -continue abx at discharge, PO (3) Acute metabolic encephalopathy: -patient slightly confused at this time -possibly 2/2 headache -resolved (4) Hypertension: -noted, no evidence of end organ damage Plan: -continue amlodopine, start lisinopril 10 mg (5) Hyperthyroidism: -check TSH (6) Prinzmetal's angina: -avoid nitrates, triptans (7) CKD (chronic kidney disease) stage 5, GFR less than 15 ml/min: -appears better than baseline Plan Feeding/fluids: regular Analgesia: tylenol, toradol Sedation: na Thromboprophylaxis: heparin Head up position: na Ulcer prophylaxis: na Glycemic control: na Spontaneous breathing trial: na Bowel care: miralax prn Indwelling catheter removal: na Deescalation of antibiotics: stop abx Patient is medically stable for discharge and is discharged from the hospital. Notes For Next Care Provider 78-year-old female with past medical history of GERD, hyperlipidemia cut, toxic goiter, migraines since childhood, CKD 3, hypertension who presents for a severe migraine from home. In the ED, given Given Toradol with slight improvement in headache, patient seemed confused and states she is concerned about going home, admitted to medicine. On medicine, migraine cocktail given and patient improved. CT chest revealed CAP, started on abx. Patient is medically stable for discharge home. Medication Changes From Visit -reglan, meloxicam, tylenol, augmentin, doxy Admission HPI Per Admitting Provider 78-year-old female with past medical history of GERD, hyperlipidemia cut, toxic goiter, migraines since childhood, CKD 3, hypertension who presents for a severe migraine from home. In the ED, given Given Toradol with slight improvement in headache, patient seemed confused and states she is concerned about going home, admitted to medicine. Patient seen and examined at bedside. Patient doing okay today. She states that this headache started in the morning, does not remember occurring yesterday. Used to have frequent migraines as a kid and through most of her adult life but they have progressively gotten worse in severity and frequency as she is gotten older. This is in the same pattern of her prior headaches, however just more intense. She states she is not taking any medications at home. States that the Toradol helped her headache a decent bit but now it is coming back and ended at the same intensity. She states she does not feel comfortable going home and and feels slightly confused. Discharge Exam Gen: A&O 3, NAD, cachexia noted HEENT: NCAT, EOMI, not icteric. External ears normal. No rhinorrhea. Moist mucous membranes. Neck: Supple, full range of motion, no observable masses, No meningeal sign. Lungs: No Respiratory distress. CV: RRR, no edema. Abdomen: Soft, nondistended, No rebound tenderness. MSK: No joint swelling, no redness. Skin: No rashes, petechiae, lesions. Normal color per patient. Neuro: Normal Gait, Grossly intact. Psych: Appropriate for situation. Updated Medication List Medication Instructions Recorded Confirmed Type acetaminophen 500 mg capsule 1,000 mg (2 x 500 mg) PO Q8 PRN 06/07/24 Rx pain #60 caps amoxicillin 500 mg-potassium 1 tab PO Q12H 5 days #10 tabs 06/07/24 Rx clavulanate 125 mg tablet (Augmentin) doxycycline hyclate 100 mg capsule 100 mg PO BID 5 days #10 caps 06/07/24 Rx lisinopril 10 mg tablet 10 mg PO QAM #30 tabs 06/07/24 Rx meloxicam 7.5 mg tablet 7.5 mg PO DAILY PRN headache #30 06/07/24 Rx tabs metoclopramide HCl 5 mg tablet 5 mg PO DAILY PRN headache #30 tabs 06/07/24 Rx (Reglan) Hospital Stay Data Consultations 06/06/24 11:36 ED Decision to Admit Stat Diagnostic Imagining Performed 06/06/24 07:07 CT head/brain wo con Stat 06/06/24 12:09 CT chest with contrast [CT chest diagnostic w con] Stat Pending Results Patient Have Any Pending Studies at Discharge: No Discharge Instructions Given to Patient (Per Discharging Provider) 1. Please finish course of antibiotics. 2. Please take migraine medications when needed, and as early as possible in the course of the migraine. Total Time Total Time Spent Total Time Spent (In Minutes): I spent a total of 35 minutes in direct patient care, including [id number] time with the patient and/or family, reviewing medical records, ordering and reviewing diagnostic tests, and coordinating care with other healthcare providers. This time includes: history taking, physical examination, medical decision making, counseling, ECG interpretation, imaging interpretation, lab interpretation, orders, and education, excluding time spent in the performance of separately billed services.
[2024-06-07] MEDS: INFLUENZA VACC TS2024-25(65y+)/PF (IIV3) 0.5mL Syr IM ONE (15:01)
== END 2024-06-07 15:55 | disposition home or self-care (01) | DRG 193 ==
LOC: ED 07:00 → EDINP 11:37 → 3N 17:32